=== PATIENT | female | born 1970 | race Caucasian/White ===

== ENCOUNTER 2023-05-30 08:19 | Outpatient (OUT) | payer MEDICARE, MEDICAID, SELFPAY ==
--- NOTE | 2023-05-30 08:25 | MM_ITS ---
Patient Name: NING CHRIS MR#: [id number] : 1970 Exam Date: 05/30/2023 Ordering Doctor: GILMAR KANG RADIOLOGY REPORT PROCEDURE: MM TOMOSYNTHESIS SCREENING BI COMPARISON: MAMMO SCREEN DIG VALENTINO, 03/09/2012. INDICATIONS: Screening Calculator Name NCI Breast Cancer Risk Assessment Tool 5 Year Breast Cancer Risk 1.30% Lifetime Breast Cancer Risk 9.30% Personal Breast Cancer No Personal Ovarian Cancer No Treatments None Family Cancers Mother with colon cancer at age 90. LOCATION: [facility] BREAST COMPOSITION: Scattered areas fibroglandular density. FINDINGS: DIAGNOSTIC CATEGORY 2--BENIGN FINDING. NO CHANGE FROM COMPARISON. Scattered benign-appearing calcifications are present. RIGHT BREAST: No significant suspicious finding. Stable nodule upper outer quadrant, anterior breast. LEFT BREAST: No significant suspicious finding. RECOMMENDATIONS: ROUTINE MAMMOGRAM AND CLINICAL EVALUATION IN 12 MONTHS. PLEASE NOTE: A NORMAL MAMMOGRAM DOES NOT EXCLUDE THE POSSIBILITY OF BREAST CANCER. A CLINICALLY SUSPICIOUS PALPABLE LUMP SHOULD BE BIOPSIED. Dictated by: Jian Hook MD on 05/30/2023 at 12:28 Approved by: Jian Hook MD on 05/30/2023 at 12:32
== END 2023-05-30 08:20 | disposition home or self-care (01) ==
LOC: MAMMO 08:19
DX: Z12.31 Encounter for screening mammogram for malignant neoplasm of breast (principal); Z80.0 Family history of malignant neoplasm of digestive organs
CPT/HCPCS: 77063; 77067

== ENCOUNTER 2024-01-09 10:35 | Outpatient (OUT) | payer MEDICARE, MEDICAID, SELFPAY ==
--- NOTE | 2024-01-09 10:45 | US_ITS ---
[address] [address] Patient Name: NING CHRIS MRN: [id number] date: 1970 Sex: F Assigned Patient Location: US Current Patient Location: Accession/Order Number: [id number] Exam Date: 01/09/2024 11:07 Report Date: 01/12/2024 07:14 At the request of: MODESTA AYDIN Procedure: US right upper quadrant EXAM: US right upper quadrant HISTORY: Right Upper Quadrant Abdominal Pain R10.11 COMPARISON: 08/16/2022 TECHNIQUE: Grayscale, color and Doppler FINDINGS: Limited exam due to patient body habitus The liver is normal in size, contour and echotexture. The liver measures 16.9 cm in length. Hepatopedal flow in the portal vein with velocity of 28 cm/s. The gallbladder is normal in size. The wall measures 1.6 mm. Negative sonographic Jeffries sign. The common bile duct measures 3.8 mm, normal. Visualized pancreas is normal. The right kidney is normal measuring 12.8 x 4.5 x 5.9 cm US/US right upper quadrant IMPRESSION: No acute abnormality Electronically authenticated by: ALEJANDRO MORIN Date: 01/12/2024 07:14
--- OUTSIDE RECORDS SUMMARY | 2024-01-09 10:45 | XMS_ITS | CCD ---
Author Organization [facility] CliniSywi Care Team Providers Care Blending Machine Feeder Name Role Phone Unavailable Primary Care Provider UnavailALEJANDRO Richards Referring Unavailable ALEJANDRO LIM Referring Unavailable ANGLIM, GILMAR Attending Unavailable GIOVANI, DR ANAND Monzon Consulting Unavailable ANGLIM, GILMAR Admitting Unavailable ANGLIM, GILMAR Primary Care Unavailable ANGLIM, GILMAR Consulting Unavailable DEBORAHEBABEL, DR ANAND Monzon Consulting Unavailable AHMED, DR HINTON Admitting Unavailable AHMED, DR HINTON Attending Unavailable ANGLIM, GILMAR Primary Care Unavailable AHMED, DR HINTON Consulting Unavailable ANGLIM, GILMAR Primary Care Unavailable ANGLIM, GILMAR Consulting Unavailable ANGLIM, GILMAR Attending Unavailable ANGLIM, GILMAR Admitting Unavailable ANGLIM, GILMAR Primary Care Unavailable NIK, DR KALLIE Monzon Admitting Unavailable NIK, DR KALLIE Monzon Consulting Unavailable NIK, DR KALLIE Monzon Attending Unavailable DAVE CARRERA Consulting Unavailable SOLOMON ALVAREZ Consulting Unavailable ANGLIM, GILMAR Primary Care Unavailable ANUP BUCKLEY Attending Unavailable INA, ANUP Admitting Unavailable ANUP BUCKLEY Consulting Unavailable RUDI MORENO Consulting Unavailable ANGLIM, GILMAR Primary Care Unavailable ANGLIM, GILMAR Attending Unavailable ANGLIM, GILMAR Admitting Unavailable ANGLIM, GILMAR Primary Care Unavailable ANGLIM, GILMAR Attending Unavailable ANGLIM, GILMAR Admitting Unavailable CONNIE GAMBLE Consulting Unavailable PAULLIM, GILMAR Consulting Unavailable PAULLIM, GILMAR Primary Care Unavailable Alejandro Hook Consulting Unavailable VIVEK, DR HINTON Admitting Unavailable GLORIAMED, DR HINTON Attending Unavailable DEBORAHEBABEL, DR ANAND Monzon Consulting Unavailable GLORIAMED, DR HINTON Consulting Unavailable PAULLIM, GILMAR Primary Care Unavailable Alejandro Hook Consulting Unavailable PAULLIM, GILMAR Attending Unavailable ANGLIM, GILMAR Admitting Unavailable GIOVANI, DR ANAND Monzon Consulting Unavailable PAULLIM, GILMAR Consulting Unavailable Anglim Gilmar BOBBY Primary Care Provider [phone] SONJA RIOJAS Attending Unavailab le KUZNSONJA WISE Admitting Unavailab le ANGLIM, GILMAR Primary Care Unavailable ALEJANDRO LIM Attending Unavailable ALEJANDRO LIM Attending Unavailable KUZNICKSONJA Gregorio Attending Unavailab le ANGLIM, GILMAR Primary Care Unavailable ALEJANDRO LIM Attending Unavailable ANGLIM, GILMAR Primary Care Unavailable ANGLIM, GILMAR Primary Care Unavailable KUZNSONJA WISE Referring Unavailab le ANGLIM, GILMAR Primary Care Unavailable KUZNICKISONJA Attending Unavailab le ANGLIM, GILMAR Primary Care Unavailable KUZNICKISONJA Referring Unavailab le ANGLIM, GILMAR Primary Care Unavailable KUZNICKSONJA Gregorio Attending Unavailab le ANGLIM, GILMAR Primary Care Unavailable KUZNICKSONJA Gregorio Referring Unavailab le ANGLIM, GILMAR Primary Care Unavailable ALEJANDRO LIM Attending Unavailable ANGLIM, GILMAR Primary Care Unavailable KUZNICKSONJA Gregorio Referring Unavailab le ANGLIM, GILMAR Primary Care Unavailable KUZNICKSONJA Gregorio Attending Unavailab le ANGLIM, GILMAR Primary Care Unavailable Flavio Galvan Jr Referring Unavailable ANGLIM, GILMAR Primary Care Unavailable Allergies Allergy Classification Reported Allergen(s) Allergy Type Date of Onset Reaction(s) Facility (20 sources) Codeine; Translations: [CODEINE] Drug Allergy 3 Other: See Comments [facility] (1 source) Codeine Drug Allergy [facility] Repository Medications Current Medications Medication Drug Class(es) Dates Sig (Normalized) Sig (Original) iv contrast (will be provided with radiology test) (1 source) Start: 12-16-2022 End: 12-17-2022 iv contrast (will be provided with radiology test) MRI Female Pelvis Inject, intravenously, once for 1 dose. No IV access, insert saline lock prior to the beginning of sedation, infusion, injection of imaging exam. Discontinue saline lock post exam. If Pt has a central line or IVAD, may access for administration according to line specific nursing protocol. Once exam is complete flush line and de-access according to line specific nursing protocol in the MR contrast administration guidelines link. 1 Each 0 12/16/2022 12/17/2022 Active Comment on above: MRI Female Pelvis In ject, intravenously, once for 1 dose. No IV access, insert saline lock prior to the beginning of sedation, infusion, injection of imaging exam. Discontinue saline lock post exam. If Pt has a central line or IVAD, may access for administration according to line specific nursing protocol. Once exam is complete flush line and de-access according to line specific nursing protocol in the MR contrast administration guidelines link. sodium picosulfate-magne sium oxide-citric acid (CLENPIQ) 10 mg-3.5 gram- 12 gram/175 mL oral solution (2 sources) Start: 02-04-2023 End: 02-06-2023 sodium picosulfate-magnesiu m oxide-citric acid (CLENPIQ) 10 mg-3.5 gram- 12 gram/175 mL oral solution Refer to instructions given by your provider 350 mL 0 02/04/2023 02/06/2023 Active Start: 02-04-2023 End: 02-06-2023 sodium picosulfate-magnesium oxide-citric acid (CLENPIQ) 10 mg-3.5 gram- 12 gram/175 mL oral solution Indications: Personal history of colonic polyps , Diarrhea, unspecified type Refer to instructions given by your provider 350 mL 0 02/04/2023 02/06/2023 Active Comment on above: Refer to instruction s given by your provider Completed/Discontinued Medications Medication Drug Class(es) Dates Sig (Normalized) Sig (Original) acetaminophen 500 mg oral tablet (10 sources) Start: 11-29-2022 take 2 tablets by mouth every six hours acetaminophen (TYLENOL EXTRA STRENGTH) 500 mg tablet Take 2 tablets by mouth every 6 hours. 30 tablet 0 11/29/2022 Active Comment on above: Take [address] tablets [address] [facility] every 6 hours. [id number] 200 actuat albuterol 0.09 mg/actuat metered dose inhaler (17 sources) beta2-Adrenergic Agonist albuterol HFA (PROVENTIL HFA, VENTOLIN HFA) 90 mcg/actuation inhaler albuterol sulfate HFA 90 mcg/actuation aerosol inhaler 0 Active Comment on above: albuterol sulfate HF A 90 mcg/actuation aerosol inhaler aspirin 81 mg delayed release oral tablet (17 sources) Platelet Aggregation Inhibitor, Nonsteroidal Anti-inflammatory Drug aspirin, enteric coated (ASPIRIN, ENTERIC COATED) 81 mg EC tablet q 24 HR. 0 Active Comment on above: q 24 HR. atorvastatin 20 mg oral tablet (17 sources) HMG-CoA Reductase Inhibitor Start: 06-03-2020 take 1 tablet by mouth once daily atorvastatin (LIPITOR) 20 mg tablet atorvastatin 20 mg tablet TAKE 1 TABLET BY MOUTH ONCE DAILY 0 06/03/2020 Active Comment on above: atorvastatin 20 mg t ablet TAKE 1 TABLET BY MOUTH ONCE DAILY dicyclomine hydrochloride 20 mg oral tablet (17 sources) Anticholinergic Start: 07-01-2022 dicyclomine (BENTYL) 20 mg tablet docusate sodium 50 mg / sennosides, senior care 8.6 mg oral tablet (9 sources) Start: 11-29-2022 take 1-2 tablets by mouth once daily as needed, then take 1 tablet by mouth once daily as needed senna-docusate (SENNA WITH DOCUSATE SODIUM) 8.6-50 mg per tablet Take 1-2 tablets by mouth once daily. May increase or decrease as needed to have one soft bowel movement daily 30 tablet 0 11/29/2022 Active Comment on above: Take 1-2 tablets by mouth once daily. May increase or decrease as needed to have one soft bowel movement daily famotidine 20 mg oral tablet (12 sources) Histamine-2 Receptor Antagonist Start: 10-17-2022 take 1 tablet by mouth twice daily as needed famotidine (PEPCID) 20 mg tablet TAKE 1 TABLET BY MOUTH TWICE DAILY NEEDED FOR 30 DAYS 0 10/17/2022 Active Comment on above: TAKE 1 TABLET BY DEZ TH TWICE DAILY NEEDED FOR 30 DAYS gabapentin 300 mg oral capsule (17 sources) Anti-epileptic Agent Start: 06-27-2022 take 2 capsules by mouth at bedtime gabapentin (NEURONTIN) 300 mg capsule TAKE 2 CAPSULES BY MOUTH AT BEDTIME FOR 30 DAYS 0 06/27/2022 Active Comment on above: TAKE 2 CAPSULES BY M OUTH AT BEDTIME FOR 30 DAYS ibuprofen 600 mg oral tablet (10 sources) Nonsteroidal Anti-inflammatory Drug Start: 11-29-2022 take 1 tablet by mouth every six hours ibuprofen (MOTRIN) 600 mg tablet Take 1 tablet by mouth every 6 hours. 30 tablet 0 11/29/2022 Active Comment on above: Take 1 tablet by dez th every 6 hours. loratadine 10 mg oral capsule (17 sources) loratadine 10 mg cap Take 10 mg by mouth. 0 Active Comment on above: Take 10 mg by mouth. losartan potassium 25 mg oral tablet (17 sources) Angiotensin 2 Receptor Helen losartan (COZAAR) 25 mg tablet q 24 HR. 0 Active Comment on above: q 24 HR. montelukast 10 mg oral tablet (17 sources) Leukotriene Receptor Antagonist Start: 06-09-2022 take 1 tablet by mouth once daily montelukast (SINGULAIR) 10 mg tablet Take 10 mg by mouth once daily. 0 06/09/2022 Active Comment on above: Take 10 mg by mouth once daily. omeprazole 40 mg delayed release oral capsule (7 sources) Proton Pump Inhibitor Start: 07-01-2022 End: 11-26-2022 omeprazole (PRILOSEC) 40 mg capsule oxyCODONE hydrochloride 5 mg oral tablet (9 sources) Opioid Agonist Start: 11-29-2022 take 1 tablet by mouth every six hours as needed for pain oxyCODONE IR (ROXICODONE) 5 mg immediate release tablet Indications: Postoperative state Take 1 tablet by mouth every 6 hours as needed for pain. 5 tablet 0 11/29/2022 Active Comment on above: Take 1 tablet by dez th every 6 hours as needed for pain. polyethylene glycol 3350 [id number] mg / potassium chloride 2970 mg / sodium bicarbonate 6740 mg / sodium chloride 5860 mg / sodium sulfate 48035 mg powder for oral solution (1 source) Osmotic Laxative Start: 02-04-2023 End: 02-04-2023 peg 3350-Electrolytes (GOLYTELY) 236-22.74-6.74 -5.86 gram suspension Take 4,000 mL by mouth one time only for 1 dose. Refer to printed prep instructions from your provider. 4000 mL 0 02/04/2023 02/04/2023 Comment on above: Take 4,000 mL by dez th one time only for 1 dose. Refer to printed prep instructions from your provider. rizatriptan 10 mg oral tablet (17 sources) Serotonin-1b and Serotonin-1d Receptor Agonist Start: 06-04-2022 rizatriptan (MAXALT) 10 mg tablet TAKE 1 TABLET BY MOUTH ONCE NEEDED FOR MIGRAINE. CAN REPEAT AFTER 2 HOURS IF NEEDED. STOP IMITREX 0 06/04/2022 Active Comment on above: TAKE 1 TABLET BY DEZ TH ONCE NEEDED FOR MIGRAINE. CAN REPEAT AFTER 2 HOURS IF NEEDED. STOP IMITREX Surgical Lubricant Jelly gel (5 sources) Start: 06-11-2023 Surgical Lubricant Jelly gel For MRI Female Pelvis, MRI department to provide. Administer intra-vaginal Surgilube immediately prior the MRI procedure (total amount to patient toleranace). 5 g 0 06/11/2023 Active Start: 12-16-2022 Surgical Lubri cant Jelly gel For MRI Female Pelvis, MRI department to provide. Administer intra-vaginal Surgilube immediately prior the MRI procedure (total amount to patient toleranace). 5 g 0 12/16/2022 Active Comment on above: For MRI Female Pelvi s, MRI department to provide. Administer intra-vaginal Surgilube immediately prior the MRI procedure (total amount to patient toleranace). tiZANidine 2 mg oral tablet (17 sources) Central alpha-2 Adrenergic Agonist Start: 2 take 1 tablet by mouth once daily as needed tiZANidine (ZANAFLEX) 2 mg tablet Take 2 mg by mouth once daily as needed. 0 03/13/2022 Active Comment on above: Take 2 mg by mouth o nce daily as needed. topiramate 25 mg oral tablet (1 source) Start: 3 take 1 tablet by mouth every twelve hours topiramate (TOPAMAX) 25 mg tablet Take 1 tablet by mouth every 12 hours. 0 06/19/2023 Active Comment on above: Take 1 tablet by dez th every 12 hours. traMADol hydrochloride 50 mg oral tablet (7 sources) Opioid Agonist Start: 3 traMADol (ULTRAM) 50 mg tablet twice daily. 0 06/27/2022 Active Comment on above: TAKE 1 TABLET BY DEZ TH TWICE DAILY NEEDED FOR 30 DAYS twice daily. Problems Active Problems Problem Classification Problem Date Documented Da te Episodic/Chronic Asthma (12 sources) Mild intermittent asthma; Translations: [Mild intermittent asthma, uncomplicated] Onset: 3 Chronic Disorders of lipid metabolism (12 sources) Hyperlipidemia; Translations: [Hyperlipidemia, unspecified] Onset: 3 Chronic Esophageal disorders (12 sources) Gastroesophageal reflux disease; Translations: [Gastro-esophageal reflux disease without esophagitis] Onset: 3 Chronic Essential hypertension (13 sources) Essential (primary) hypertension; Translations: [Essential hypertension] Onset: 2 Chronic Headache; including migraine (1 source) Migraine; Translations: [Migraine, unspecified, not intractable, without status migrainosus] Onset: 4 07-09-2023 Chronic Mood disorders (11 sources) Depressive disorder; Translations: [Depression] Onset: 3 11-26-2022 Chronic Other and unspecified benign neoplasm (1 source) History of polyp of colon; Translations: [Personal history of colonic polyps] 02-04-2023 Episodic Other gastrointestinal disorders (3 sources) Diarrhea; Translations: [Diarrhea, unspecified] Episodic Other gastrointestinal disorders (1 source) Constipation; Translations: [Other constipation] Episodic Other gastrointestinal disorders (1 source) Diarrhea, unspecified; Translations: [Diarrhea, unspecified type] Onset: 3 Episodic Other gastrointestinal disorders (1 source) Other constipation; Translations: [Other constipation] Onset: 3 Episodic Other gastrointestinal disorders (2 sources) Altered bowel function; Translations: [Change in bowel habit] Episodic Other gastrointestinal disorders (1 source) Swelling; Translations: [Other intra-abdominal and pelvic swelling, mass and lump] 12-12-2022 Episodic Other hereditary and degenerative nervous system conditions (11 sources) Restless legs; Translations: [Restless legs syndrome] Onset: 3 11-26-2022 Chronic Other nervous system disorders (1 source) Other chronic pain; Translations: [OTHER CHRONIC PAIN] Onset: 2 Chronic Other nutritional; endocrine; and metabolic disorders (1 source) Obesity, unspecified; Translations: [OBESITY UNSPECIFIED] Onset: 2 Chronic Other nutritional; endocrine; and metabolic disorders (1 source) Body mass index (BMI) 45.0-49.9, adult; Translations: [BODY MASS INDEX BMI 45.0-49.9 ADULT] Onset: 2 Chronic Other nutritional; endocrine; and metabolic disorders (14 sources) Body mass index 40+ - severely obese; Translations: [Morbid (severe) obesity due to excess calories] Onset: 3 Chronic Other screening for suspected conditions (not mental disorders or infectious disease) (2 sources) Endometrium thickened; Translations: [Abnormal findings on diagnostic imaging of other specified body structures] Onset: 3 Chronic Residual codes; unclassified (1 source) Obstructive sleep apnea syndrome; Translations: [Obstructive sleep apnea (adult) (pediatric)] Chronic Residual codes; unclassified (11 sources) Sleep apnea; Translations: [Sleep apnea, unspecified] Onset: 3 11-26-2022 Chronic Residual codes; unclassified (1 source) Postoperative state; Translations: [Other specified postprocedural states] Episodic Residual codes; unclassified (1 source) Other specified postprocedural states; Translations: [Postoperative state] Onset: 3 Episodic Spondylosis; intervertebral disc disorders; other back problems (1 source) Other intervertebral disc degeneration, lumbar region; Translations: [OTH IV DISC DEGEN LUMBAR REGION] Onset: 3 Chronic Unclassified (1 source) COUGH, UNSPECIFIED; Translations: [COUGH, UNSPECIFIED] Onset: 2 Past or Other Problems Problem Classification Problem Date Documented Da te Episodic/Chronic Abdominal pain (5 sources) Unspecified abdominal pain; Translations: [UNSPECIFIED ABDOMINAL PAIN] Onset: 12-11-2021 Episodic Biliary tract disease (1 source) Disease of gallbladder, unspecified; Translations: [DISEASE OF GALLBLADDER UNSPECIFIED] Onset: 03-19-2022 Episodic Intestinal infection (1 source) Bacterial foodborne intoxication, unspecified; Translations: [BACTERIAL FOODBORNE INTOXICATN UNS] Onset: 12-11-2021 Episodic Nausea and vomiting (1 source) Nausea with vomiting, unspecified; Translations: [NAUSEA WITH VOMITING UNSPECIFIED] Onset: 12-11-2021 Episodic Nonspecific chest pain (1 source) Other chest pain; Translations: [OTHER CHEST PAIN] Onset: 12-11-2021 Episodic Other aftercare (1 source) Other extermination inspector (current) drug therapy; Translations: [OTH LONG-TERM CURRENT DRUG THERAPY] Onset: 03-19-2022 Episodic Other aftercare (1 source) extermination inspector (current) use of aspirin; Translations: [TAR HEAT EXCHANGER CLEANER CURRENT USE OF ASPIRIN] Onset: 03-19-2022 Episodic Other gastrointestinal disorders (1 source) Other intra-abdominal and pelvic swelling, mass and lump; Translations: [Other intra-abdominal and pelvic swelling, mass and lump] Onset: 12-12-2022 Episodic Other lower respiratory disease (1 source) Shortness of breath; Translations: [SHORTNESS OF BREATH] Onset: 12-11-2021 Episodic Other screening for suspected conditions (not mental disorders or infectious disease) (7 sources) Abnormal findings on diagnostic imaging of other abdominal regions, including retroperitoneum; Translations: [Cancer cervix screening status] Onset: 08-21-2022 Episodic Ovarian cyst (7 sources) Unspecified ovarian cyst, right side; Translations: [Cyst of ovary] Onset: 09-05-2022 Episodic Spondylosis; intervertebral disc disorders; other back problems (12 sources) Chronic back pain ; Translations: [Dorsalgia, unspecified] Onset: 11-26-2022 Episodic Results Test Name Value Interpretation Reference Range Facility HISTORY PHYSICALon HISTORY PHYSICAL HNO ID: [id number] Author: GABBY RUIZ APRN.QUANTITATIVE STRATEGY ANALYST Service: ? Author Type: Nurse Practitioner Type: H&P Filed: 07/09/2023 10:23 Note Text: PREANESTHESIA CONSULT CLINIC TELEHEALTH VISIT Patient has been identified by name and date of : Yes This is a virtual visit using cloud.[email or web address] Video Visit. It require patient-provider interaction for the medical decision making as documented below. Reason for contact: PACC visit Accompanied by: Self This is a virtual visit using Virtual Visit (Audio/Visual) I have discussed the nature of this visit with the patient which will occur via Distance Health (Phone, Virtual Visit) and she agrees to proceed with this interaction . It required patient-provider interaction for the medical decision making as documented below. I have communicated my name and active licensure. The patient's identity and physical location were verified at the time of this visit. Either the patient or their legal national account representative has been informed of the risks and benefits of and alternatives to treatment through a remote evaluation and consents to proceed with the evaluation remotely. Scheduled Surgery: EGD AND Colonoscopy on 07/28/23 at [facility]. Subjective CHIEF COMPLAINT: Patient presents with: Pre-Op Visit HPI: This is a 53 year old female who presents for a virtual PACC visit; she is scheduled for an EGD and Colonoscopy. Patient has c/o GERD, right sided abdominal pain, and intermittent constipation and diarrhea. She states she had a colonoscopy several years ago that discovered colon polyps. Patient denies recent fevers, chills, unexplained weight loss, nausea, vomiting, bloating, or blood in the stool. The above procedure was recommended; patient has elected to proceed. ACTIVE PROBLEM LIST Sleep Apnea Htn (Hypertension) Gerd (Gastroesophageal Reflux Disease) Depression Asthma Rls (Restless Legs Syndrome) Obesity, Morbid, Bmi 40.0-49.9 (Hcc) Hld (Hyperlipidemia) Chronic Back Pain Migraines PAST MEDICAL HISTORY Diagnosis Date Anxiety Asthma Chronic back pain and neck pain Depression GERD (gastroesophageal reflux disease) HLD (hyperlipidemia) HTN (hypertension) Migraines Obesity, morbid, BMI 40.0-49.9 (HCC) RLS (restless legs syndrome) Sleep apnea PAST SURGICAL HISTORY Procedure Laterality Date ARTHROSCOPY KNEE DIAGNOSTIC W/WO SYNOVIAL BX SPX Left FAMILY HISTORY Problem Relation Age of Onset Heart disease Mother Auto-Immune Hepatitis Mother Colon Cancer Mother Blood Disease Mother Osteoporosis Mother Arthritis Mother Depression Mother Depression Father Heart Attack Father Hypertension Father Hyperlipidemia Father Hypertension Sister Obstructive Sleep Apnea Sister Hypertension Brother Heart disease Maternal Grandfather Anesthesia Problems No Family History Social History Tobacco Use Smoking status: Never Smokeless tobacco: Never Vaping Use Vaping Use: Never used Substance Use Topics Alcohol use: Not Currently Drug use: Never ALLERGIES Allergen Reactions Codeine Other: See Comments MEDICATIONS: Current Outpatient Medications Medication Sig topiramate (TOPAMAX) 25 mg tablet Take 1 tablet by mouth every 12 hours. ibuprofen (MOTRIN) 600 mg tablet Take 1 tablet by mouth every 6 hours. famotidine (PEPCID) 20 mg tablet TAKE 1 TABLET BY MOUTH TWICE DAILY NEEDED FOR 30 DAYS gabapentin (NEURONTIN) 300 mg capsule TAKE 2 CAPSULES BY MOUTH AT BEDTIME FOR 30 DAYS losartan (COZAAR) 25 mg tablet q 24 HR. montelukast (SINGULAIR) 10 mg tablet Take 10 mg by mouth once daily. rizatriptan (MAXALT) 10 mg tablet TAKE 1 TABLET BY MOUTH ONCE NEEDED FOR MIGRAINE. CAN REPEAT AFTER 2 HOURS IF NEEDED. STOP IMITREX tiZANidine (ZANAFLEX) 2 mg tablet Take 2 mg by mouth once daily as needed. aspirin, enteric coated (ASPIRIN, ENTERIC COATED) 81 mg EC tablet q 24 HR. albuterol HFA (PROVENTIL HFA, VENTOLIN HFA) 90 mcg/actuation inhaler albuterol sulfate HFA 90 mcg/actuation aerosol inhaler atorvastatin (LIPITOR) 20 mg tablet atorvastatin 20 mg tablet TAKE 1 TABLET BY MOUTH ONCE DAILY Surgical Lubricant Jelly gel For MRI Female Pelvis, MRI department to provide. Administer intra-vaginal Surgilube immediately prior the MRI procedure (total amount to patient toleranace). acetaminophen (TYLENOL EXTRA STRENGTH) 500 mg tablet Take 2 tablets by mouth every 6 hours. loratadine 10 mg cap Take 10 mg by mouth. (Patient not taking: Reported on 06/11/2023) dicyclomine (BENTYL) 20 mg tablet No current facility-administered medications for this visit. COVID VACCINATION STATUS: Fully vaccinated REVIEW OF SYSTEMS: Pain Assessment: General: No weight loss, malaise or fevers. Neuro: + Migraines, RLS. Negative for seizures, strokes. Respiratory: + Asthma, PERCY. Negative for Current cough, Dyspnea, Pneumonia within 6 weeks (date), URI < 2 weeks Cardiovascular: + HTN, HLD. Negative for DVT/PE, CT, (more content not included)... Normal [facility] CNOVSPon 06-11-2023 CNOVSP Visit (SP) Office ([facility]) -- YADIRA JEFFREY ([id number]) 1970 F Date Time Provider Department 06/11/23 1:00 PM SONJA RIOJAS GYNPERCY During your visit today, we recorded the following information about you: Temperature Pulse Respiration Blood pressure 97.9 degrees 83/minute 18/minute 132/75 Weight Height 140 kg 1.702 m Sonja Riojas MD 06/11/2023 1:34 PM Signed DATE OF SERVICE: 06/11/2023 REASON FOR VISIT: Right ovarian cyst, MRI REVIEW DIAGNOSIS: Right ovarian cyst HISTORY OF PRESENT ILLNESS: Yadira Jeffrey is a 52 year old female with pmh of HTN, anxiety/depression, asthma, cervical stenosis os spine, GERD, PERCY who presented for abdominal discomfort. CT A/P initially completed in 02/2022 demonstrated a right ovarian cyst and continued monitoring has shown slight increase in size. Pelvic US follow up completed in 04/2022 demonstrated a thickened endometrium and follow up MRI pelvis in 08/2022 demonstrated a 5.4 complex right ovarian lesion, suspected to represent a hemmorhagic cyst. Patient has declined a pelvic exam due to traumatic history. Presents to hospital social worker onc for further evaluation. Thickened endometrium on MRI without bleeding for 1.5y Not up to date on pap screening 11/29/2022 Surgery- EUA, colposcopy with cervical biopsies, [facility] FINAL DIAGNOSIS A. Endocervix, curettage: ---Benign endocervical glandular epithelium. B. Endometrium, curettage: ---Superficial strips of inactive endometrium. C. Cervix, at 12:00, biopsy: ---Benign transformation zone mucosa with marked acute and chronic inflammation. D. Cervix, at 9:00, biopsy: ---Benign transformation zone mucosa with marked acute and chronic inflammation. E. Cervix, at 3:00, biopsy: ---Benign transformation zone mucosa with marked acute and chronic inflammation. Ca 125 : 7 DATE OF LAST VISIT: 12/16/2022 OBSTETRIC/ GYNECOLOGY HISTORY: Last Pap: 11/29/2022- negative RECENT PATHOLOGY: 11/29/2022 FINAL DIAGNOSIS A. Endocervix, curettage: ---Benign endocervical glandular epithelium. B. Endometrium, curettage: ---Superficial strips of inactive endometrium. C. Cervix, at 12:00, biopsy: ---Benign transformation zone mucosa with marked acute and chronic inflammation. D. Cervix, at 9:00, biopsy: ---Benign transformation zone mucosa with marked acute and chronic inflammation. E. Cervix, at 3:00, biopsy: ---Benign transformation zone mucosa with marked acute and chronic inflammation. RECENT IMAGING: Date: 09/05/2022 MRI Pelvis Date: 08/16/2022 CT A/P Date: 05/13/22 Pelvic US Date: 03/15/2022 CT A/P 12/12/2022-MRI pelvis IMPRESSION: Stable 5.4 cm nonenhancing right ovarian cystic lesion with heterogeneous internal signal intensity, possibly related to hemorrhage (ORADS 3). No endometrial thickening. 12/12/2022 MRI Pelvis IMPRESSION: Stable 5.4 cm nonenhancing right ovarian cystic lesion with heterogeneous internal signal intensity, possibly related to hemorrhage (ORADS 3). No endometrial thickening. 01/27/2023 MRI Abdomen IMPRESSION: 1. No acute process. 2. Tiny 0.3 cm cystic lesion in the body of the pancreas, likely a tiny sidebranch IPMN. Recommend 1 year follow-up. 3. Common bile duct is minimally distended measuring up to 0.9 cm but tapers smoothly distally. No obvious filling defects or focal lesions. 06/03/2023 MRI Pelvis IMPRESSION: Stable 5.3 cm nonenhancing right ovarian lesion with some hemorrhagic component (O-RADS 3). HEALTH MAINTENANCE: Last mammogram: 16 years ago normal Last colonoscopy: scheduled fall 2022 ECOG performance status ECOG PERFORMANCE STATUS: 0- Fully active, able to carry on all pre-disease performance w/o restriction. SUBJECTIVE/INTERVAL HISTORY: Yadira Jeffrey reports that she feels well. Stable abdominal pain and diarrhea. No nausea. Some decreased appetite. No abnormal bleeding or any new symptoms since last visit. Has been following with GI for ongoing symptoms. Her ECOG performance status is zero (fully active, able to carry on all pre-disease performance without restriction). OBJECTIVE: VITALS: BP 132/75 Pulse 83 Temp (Src) 97.9 (Temporal) Resp 18 Ht 5' 7.008 (1.70m) Wt 308 lb 10.3 oz (140.0kg) SpO2 97% BMI 48.33 kg/(m2). GENERAL: alert, oriented, pleasant, and cooperative. HEENT: Normocephalic, atraumatic, and no lesions. ASSESSMENT: 52 year old y/o female anxiety, depression, HTN presenting for follow up of complex right ovarian cyst and thickened endometrium. Also following with GI for gallbladder abnormalities. Continues to care for her mother with cancer treatment and has been under a lot of stress. Complex right ovarian mass : unable to tolerate transvaginal probe or pelvic exams therefore the abdominal sono was limited. MRI 08/2022 shows 5.4 cm cyst, US shows 5.4cm cyst. MRI suggesting hemorrhagic cyst. Nor (more content not included)... Normal [facility] MRI FEMALE PELVIS WO/W IVCON on 06-03-2023 MRI FEMALE PELVIS WO/W IVCON * * *Final Report* * * DATE OF EXAM: Jun 03 2023 2:19PM [facility] 0713 - MRI FEMALE PELVIS WO/W IVCON / PROCEDURE REASON: Cyst of ovary, unspecified laterality * * * * Physician Interpretation * * * * MRI OF THE FEMALE PELVIS WITHOUT AND WITH CONTRAST CLINICAL HISTORY: Follow-up hemorrhagic right ovarian cyst. TECHNIQUE: Magnet: 3T Scanner Coil: Torso phased array Sequences / planes: Multiplanar, multisequence imaging of the female pelvis was performed with and without contrast enhancement. M: [id number] Contrast: Contrast Media 1: IV administration of 20 ml of Dotarem COMPARISON: MRI pelvis 12/12/2022 RESULT: Uterus: Size: 6.8 x 6.0 x 2.9 cm Orientation: Anteverted Endometrium: Homogeneous signal intensity with no mass measuring 2 mm. Junctional zone: Maximum thickness: 7 mm, Homogeneous T2 hypointense signal Cervix: Normal Leiomyomas: None. Adenomyomas: None Ovaries: - Right ovary: 5.3 x 5.0 x 4.7 cm cystic lesion (4:29) with heterogeneous T2 signal, a few areas of peripheral T1 hyperintensity and no internal enhancement but with mild smooth peripheral enhancement. Previously this lesion measured 5.4 x 4.8 x 4.8 cm. - Left ovary: 2.5 x 1.2 cm with normal parenchyma (7:24). Endometriosis: None Pelvis free fluid: none Lymph nodes: No lymph nodes enlarged by size criteria Bones:Normal marrow signal. Hydronephrosis: no IMPRESSION: Stable 5.3 cm nonenhancing right ovarian lesion with some hemorrhagic component (O-RADS 3). Tile Ditcher: LESLEY Transcribe Date/Time: Jun 03 2023 2:22P Dictated by : ERIN NGUYEN, DO This examination was interpreted and the report reviewed and electronically signed by: EUGENE CHAPIN MD on Jun 03 2023 4:27PM EST [id number] Normal [facility] Juanito 01-28-2023 CNPN Telephone (GYN) -- YADIRA JEFFREY ([id number]) 1970 F Date Time Provider Department 01/28/23 HOLLEY COPPOLA GYNML During your visit today, we recorded the following information about you: Holley Coppola APRN.CNP 01/28/2023 3:51 PM Signed Called Wendy regarding her MRI Abdomen results. Unable to leave a voicemail. Will send [employer] message and try again later. Holley Coppola APRN.CNP January 28, 2023 3:51 PM Holley Coppola APRN.CNP 02/03/2023 11:31 AM Signed LVM for patient regarding MRI results. Will await returned call. Holley Coppola APRN.CNP February 03, 2023 11:31 AM Allergies As of Date: 01/28/2023 Noted Allergy Reaction CODEINE 07/08/2022 14 - Other: See Comments Date Reviewed: 01/27/2023 Reviewed by: Monalisa Srivastava RN - Fully Assessed Reason for Visit: Results [95] Prescriptions as of 02/03/2023 - Surgical Lubricant Jelly gel For MRI Female Pelvis, MRI department to provide. Administer intra-vaginal Surgilube immediately prior the MRI procedure (total amount to patient toleranace). - oxyCODONE IR (ROXICODONE) 5 mg immediate release tablet Take 1 tablet by mouth every 6 hours as needed for pain. - acetaminophen (TYLENOL EXTRA STRENGTH) 500 mg tablet Take 2 tablets by mouth every 6 hours. - ibuprofen (MOTRIN) 600 mg tablet Take 1 tablet by mouth every 6 hours. - senna-docusate (SENNA WITH DOCUSATE SODIUM) 8.6-50 mg per tablet Take 1-2 tablets by mouth once daily. May increase or decrease as needed to have one soft bowel movement daily - famotidine (PEPCID) 20 mg tablet TAKE 1 TABLET BY MOUTH TWICE DAILY NEEDED FOR 30 DAYS - gabapentin (NEURONTIN) 300 mg capsule TAKE 2 CAPSULES BY MOUTH AT BEDTIME FOR 30 DAYS - loratadine 10 mg cap Take 10 mg by mouth. - losartan (COZAAR) 25 mg tablet q 24 HR. - montelukast (SINGULAIR) 10 mg tablet Take 10 mg by mouth once daily. - rizatriptan (MAXALT) 10 mg tablet TAKE 1 TABLET BY MOUTH ONCE NEEDED FOR MIGRAINE. CAN REPEAT AFTER 2 HOURS IF NEEDED. STOP IMITREX - tiZANidine (ZANAFLEX) 2 mg tablet Take 2 mg by mouth once daily as needed. - aspirin, enteric coated (ASPIRIN, ENTERIC COATED) 81 mg EC tablet q 24 HR. - albuterol HFA (PROVENTIL HFA, VENTOLIN HFA) 90 mcg/actuation inhaler albuterol sulfate HFA 90 mcg/actuation aerosol inhaler - dicyclomine (BENTYL) 20 mg tablet - atorvastatin (LIPITOR) 20 mg tablet atorvastatin 20 mg tablet TAKE 1 TABLET BY MOUTH ONCE DAILY Problem List As Of Date 01/28/2023 Noted Resolved Sleep apnea [G47.30] 11/26/2022 HTN (hypertension) [I10] 11/26/2022 GERD (gastroesophageal reflux disease) [K21.9] 11/26/2022 Depression [F32.A] 11/26/2022 Asthma [J45.909] 11/26/2022 RLS (restless legs syndrome) [G25.81] 11/26/2022 Obesity, morbid, BMI 40.0-49.9 (HCC) [E66.01] 11/26/2022 HLD (hyperlipidemia) [E78.5] 11/26/2022 Chronic back pain [M54.9, G89.29] 11/26/2022 Encounter Status:Closed by HOLLEY COPPOLA on 01/28/23 [facility] MRI ABDOMEN WO/W IVCONon Radiology Result ACTIONABLE Abnormal [facility]z k[facility] MRI ABDOMEN WO/W IVCON * * *Final Report* * * DATE OF EXAM: Jan 27 2023 10:58AM [facility] 0689 - MRI ABDOMEN WO/W IVCON / PROCEDURE REASON: Cyst of ovary, unspecified laterality * * * * Physician Interpretation * * * * MRI OF THE ABDOMEN WITHOUT AND WITH CONTRAST: CLINICAL HISTORY: Ovarian cyst, abdominal pain COMPARISON: None. TECHNIQUE: The study was performed on a Siemens 1.5 T Espree scanner using the torso phased array coil. HASTE images were obtained in the axial, sagittal and coronal planes. High resolution 3-D T2 weighted images were then obtained. Next, axial STIR, diffusion weighted and T1 weighted in- and [id number] images were obtained. Then, using a 3-D GRE T1 weighted sequence, dynamic images were obtained before, during and after the administration of intravenous contrast. 3-D images were post-processed on a dedicated off-line workstation and were reviewed by the interpreting physician. Contrast: IV: 20 ml of Dotarem Oral Contrast: None RESULT: Liver: The liver is normal in contour. Scattered arterial enhancing foci measuring up to 0.9 cm without underlying T2 abnormality. Fades to background on venous phase images and likely focal perfusion abnormalities. There are no focal hepatic lesions. Mild hepatic steatosis There is no thrombus in the portal venous system (splenic vein, main portal vein, left and right anterior and right posterior portal vein branches). Spleen - The spleen measures 12.0 cm in length, normal. There are no focal splenic masses. Pancreaticobiliary: There is no intrahepatic biliary dilation. Common bile duct is mildly distended measuring up to 0.9 cm. No filling defects are identified within the common bile duct. Smooth tapering distally. The gallbladder is normal in appearance. The pancreas has normal precontrast signal, enhances normally. Adjacent tiny cystic lesions in the pancreatic body measuring 0.3 cm (image 26, 9). The visualized portions of the pancreatic duct are normal. The adrenals are normal. Kidneys: The visualized portions of the kidneys enhance symmetrically. There is no hydroureteronephrosis. There is no focal enhancing renal lesion. Tiny cyst in the lower pole of the left kidney Other: There is no ascites. There are no abnormal fluid collections. There is no lymphadenopathy. IMPRESSION: 1. No acute process. 2. Tiny 0.3 cm cystic lesion in the body of the pancreas, likely a tiny sidebranch IPMN. Recommend 1 year follow-up. 3. Common bile duct is minimally distended measuring up to 0.9 cm but tapers smoothly distally. No obvious filling defects or focal lesions. ACTIONABLE RESULT: FOLLOW-UP Acuity: Actionable Findings: Pancreas/Biliary Routing Code: PB_1 Recommendation: MRI PANCREAS/BILIARY WO/W IV CONTRAST Time Frame: In one year. COMMUNICATION: Results will be communicated with the ordering provider via [employer] staff message or phone message by [employer] within 2 business days of report finalization. Algorithms for management of incidental imaging findings can be found on the [facility] Intranet Sharepoint site at: [email or web address] [email or web address] Tile Ditcher: LESLEY Transcribe Date/Time: Jan 27 2023 1:10P Dictated by : HERMILA TAY MD This examination was interpreted and the report reviewed and electronically signed by: HERMILA TAY MD on Jan 27 2023 1:28PM EST [id number] ACTIONABLE Invalid Interpretation Code [facility] MRI FEMALE PELVIS WO/W IVCON on 12-12-2022 MRI FEMALE PELVIS WO/W IVCON * * *Final Report* * * DATE OF EXAM: Dec 12 2022 1:29PM [facility] 0713 - MRI FEMALE PELVIS WO/W IVCON / PROCEDURE REASON: Other intra-abdominal and pelvic swelling, mass and lump * * * * Physician Interpretation * * * * MRI OF THE FEMALE PELVIS WITHOUT AND WITH CONTRAST CLINICAL HISTORY: Enlarging hemorrhagic right ovarian cyst and thickened endometrium, follow-up. TECHNIQUE: Magnet: Siemens 1.5T Espree Coil: Torso phased array Sequences / planes: T2: axial, sagittal, coronal and axial oblique High resolution T2: sagittal HASTE: coronal large field of view T1 in and out of phase T1 3-D GRE with and without contrast: axial, sagittal Diffusion weighted imaging with ADC mapping: axial Contrast: IV administration of 20 ml of Dotarem COMPARISON: 09/05/2022 MRI pelvis 2:16 RESULT: Uterus: Size: 5.9 x 2.7 x 4.9 cm Orientation: Anteverted Configuration: conventional Endometrium: Maximum width measures 2 mm. No endometrial lesion. Junctional zone: Maximum thickness: 6 mm. Homogeneous T2 hypointense signal. Cervix: Normal Leiomyomas: None Adenomyomas: None Ovaries: - Right ovary: Grossly stable 4.8 x 4.8 x 5.4 cm cystic lesion with a thin enhancing rim (5:34, 3:31). Lesion shows peripheral T1 hyperintensity and heterogeneous mixed high and low signal intensity on T2. Simple cyst was visualized on CT from 08/16/2022 that measured 6 cm. - Left ovary: 2.2 x 1.2 cm with normal parenchyma (5:31). Endometriosis: None Pelvis free fluid: Trace, likely physiologic free fluid. Lymph nodes: No lymph nodes enlarged by size criteria Bones:Normal marrow signal. IMPRESSION: Stable 5.4 cm nonenhancing right ovarian cystic lesion with heterogeneous internal signal intensity, possibly related to hemorrhage (ORADS 3). No endometrial thickening. Tile Ditcher: PSCB Transcribe Date/Time: Dec 12 2022 1:32P Dictated by : KARO NIXON MD This examination was interpreted and the report reviewed and electronically signed by: ALVARADO ALONSO MD on Dec 13 2022 12:32PM EST [id number] Normal [facility] CNOVSPon 12-11-2022 CNOVSP Visit (SP) Office (Terence AGUIRRE) -- YADIRA JEFFREY ([id number]) 1970 F Date Time Provider Department 12/11/22 8:30 AM SONJA RIOJAS During your visit today, we recorded the following information about you: Temperature Pulse Respiration Blood pressure 97.7 degrees 61/minute 16/minute 105/51 Weight Height 135.2 kg 1.702 m Kathy Hicks MA 12/11/2022 8:30 AM Signed Patient states that both burning and bleeding have stopped and she denies pain. TAVO Culver MD 12/11/2022 8:54 AM Signed DATE OF SERVICE: 12/11/2022 REASON FOR VISIT: Right ovarian cyst, post op follow up DIAGNOSIS: Right ovarian cyst HISTORY OF PRESENT ILLNESS: Yadira Jeffrey is a 52 year old female with pmh of HTN, anxiety/depression, asthma, cervical stenosis os spine, GERD, PERCY who presented for abdominal discomfort. CT A/P initially completed in 02/2022 demonstrated a right ovarian cyst and continued monitoring has shown slight increase in size. Pelvic US follow up completed in 04/2022 demonstrated a thickened endometrium and follow up MRI pelvis in 08/2022 demonstrated a 5.4 complex right ovarian lesion, suspected to represent a hemmorhagic cyst. Patient has declined a pelvic exam due to traumatic history. Presents to hospital social worker onc for further evaluation. Thickened endometrium on MRI without bleeding for 1.5y Not up to date on pap screening 11/29/2022 Surgery- EUA, colposcopy with cervical biopsies, [facility] Ca 125 : 7 DATE OF LAST VISIT: 11/06/22 OBSTETRIC/ GYNECOLOGY HISTORY: Last Pap: 11/29/2022- in process PAST MEDICAL HISTORY Diagnosis Date Anxiety Asthma Chronic back pain and neck pain Depression GERD (gastroesophageal reflux disease) HLD (hyperlipidemia) HTN (hypertension) Migraines Obesity, morbid, BMI 40.0-49.9 (HCC) RLS (restless legs syndrome) Sleep apnea PAST SURGICAL HISTORY Procedure Laterality Date ARTHROSCOPY KNEE DIAGNOSTIC W/WO SYNOVIAL BX SPX Left Family History Problem Relation Age of Onset Heart disease Mother Auto-Immune Hepatitis Mother Colon Cancer Mother Blood Disease Mother Osteoporosis Mother Arthritis Mother Depression Mother Depression Father Heart Attack Father Hypertension Father Hyperlipidemia Father Hypertension Sister Obstructive Sleep Apnea Sister Hypertension Brother Heart disease Maternal Grandfather Anesthesia Problems No Family History RECENT PATHOLOGY: 11/29/2022 FINAL DIAGNOSIS A. Endocervix, curettage: ---Benign endocervical glandular epithelium. B. Endometrium, curettage: ---Superficial strips of inactive endometrium. C. Cervix, at 12:00, biopsy: ---Benign transformation zone mucosa with marked acute and chronic inflammation. D. Cervix, at 9:00, biopsy: ---Benign transformation zone mucosa with marked acute and chronic inflammation. E. Cervix, at 3:00, biopsy: ---Benign transformation zone mucosa with marked acute and chronic inflammation. RECENT IMAGING: Date: 09/05/2022 MRI Pelvis Date: 08/16/2022 CT A/P Date: 05/13/22 Pelvic US Date: 03/15/2022 CT A/P HEALTH MAINTENANCE: Last mammogram: 16 years ago normal Last colonoscopy: scheduled fall 2022 ECOG performance status ECOG PERFORMANCE STATUS: 0- Fully active, able to carry on all pre-disease performance w/o restriction. SUBJECTIVE/INTERVAL HISTORY: Yadira Jeffrey has been doing well since EUA DANDC and colposcopy w/cervical biopsies. Reports pain has resolved and denies any bleeding. No fevers/chills or new complaints. She is scheduled for MRI tomorrow for follow up of the ovarian cyst. OBJECTIVE: VITALS: BP 105/51 Pulse 61 Temp (Src) 97.7 (Temporal) Resp 16 Ht 5' 7.008 (1.70m) Wt 298 lb (135.2kg) SpO2 95% BMI 46.66 kg/(m2). GENERAL: alert, oriented, pleasant, and cooperative. HEENT: Normocephalic, atraumatic, and no lesions. ASSESSMENT: 52 year old y/o female Body mass index is 46.66 kg/m?., anxiety, depression, HTN presenting with a complex right ovarian cyst and thickened endometrium. Also following with GI for gallbladder abnormalities. Complex right ovarian mass : unable to tolerate transvaginal probe or pelvic exams therefore the abdominal sono was limited. MRI 08/2022 shows 5.4 cm cyst, US shows 5.4cm cyst. MRI suggesting hemorrhagic cyst. Normal ca125 reviewed. Patient opted for surveillance at last visit and has repeat MRI tomorrow - follow up for televisit after MRI to discuss results. Thickened endometrium on 08/2022 MRI - s/p DANDC with benign inactive endometrium, no further work up needed Not up to date on cervical cancer screening - Patient does not tolerate office exams therefore we performed pap, colpo and cervical biopsies while under anesthesia, path reviewed and benign. Pap still pending will follow up results, plan for repeat pap in 3 years unless HPV can be added t (more content not included)... Normal [facility] Juanito 12-02-2022 CNPN Telephone (GYNML) -- YADIRA JEFFREY ([id number]) 1970 F Date Time Provider Department 12/02/22 SHEELA KAUR GYNML During your visit today, we recorded the following information about you: Sheela Kaur RN 12/02/2022 8:36 AM Signed Pt had Exam under anesthesia Colposcopy with cervical biopsies Dilation and curettage with Dr. Riojas on 11/29/22 Will call for post operative assessment Corin Magallanes RN 12/02/2022 11:39 AM Signed December 02, 2022 11:31 AM Patient called for post op follow up assessment. Reports she is doing well. Pain: Patient rates pain 4 on a scale of 0-10. 0 being no pain and 10 being worst pain imaginable. Patient states pain is tolerable. Taking Tylenol and Ibuprofen Diet: Patient is able tolerate fluids and normal diet. Bowel Movement: Patient is able to pass gas and has had a bowel movement. Voiding: Patient is able to void without difficulty, c/o burning with voiding since surgery, has improved. Advised to monitor, if does not completely improve, worsens or urgency/frequency in next few days to notify office Vaginal Discharge: Denies heavy vaginal bleeding Medication: Denies questions or concerns about medication. Post op restrictions reviewed with patient including - activity- no heavy lifting, on pelvic rest - keep incision clean and dry. Ok to use mild antibacterial soap. - reviewed signs and symptoms to notify office including signs of infection, fever, heavy vaginal bleeding. - she is aware of post op appointment 12/11/2022 Patient verbalized understanding and denies further questions at this time. Understands to call the office with further concerns/questions. Corin Magallanes RN Allergies As of Date: 12/02/2022 Noted Allergy Reaction CODEINE 07/08/2022 14 - Other: See Comments Date Reviewed: 11/29/2022 Reviewed by: Lory Echevarria RN - Fully Assessed Reason for Visit: Surgical Followup [104] Prescriptions as of 12/02/2022 - oxyCODONE IR (ROXICODONE) 5 mg immediate release tablet Take 1 tablet by mouth every 6 hours as needed for pain. - acetaminophen (TYLENOL EXTRA STRENGTH) 500 mg tablet Take 2 tablets by mouth every 6 hours. - ibuprofen (MOTRIN) 600 mg tablet Take 1 tablet by mouth every 6 hours. - senna-docusate (SENNA WITH DOCUSATE SODIUM) 8.6-50 mg per tablet Take 1-2 tablets by mouth once daily. May increase or decrease as needed to have one soft bowel movement daily - famotidine (PEPCID) 20 mg tablet TAKE 1 TABLET BY MOUTH TWICE DAILY NEEDED FOR 30 DAYS - gabapentin (NEURONTIN) 300 mg capsule TAKE 2 CAPSULES BY MOUTH AT BEDTIME FOR 30 DAYS - loratadine 10 mg cap Take 10 mg by mouth. - losartan (COZAAR) 25 mg tablet q 24 HR. - montelukast (SINGULAIR) 10 mg tablet Take 10 mg by mouth once daily. - rizatriptan (MAXALT) 10 mg tablet TAKE 1 TABLET BY MOUTH ONCE NEEDED FOR MIGRAINE. CAN REPEAT AFTER 2 HOURS IF NEEDED. STOP IMITREX - tiZANidine (ZANAFLEX) 2 mg tablet Take 2 mg by mouth once daily as needed. - aspirin, enteric coated (ASPIRIN, ENTERIC COATED) 81 mg EC tablet q 24 HR. - albuterol HFA (PROVENTIL HFA, VENTOLIN HFA) 90 mcg/actuation inhaler albuterol sulfate HFA 90 mcg/actuation aerosol inhaler - dicyclomine (BENTYL) 20 mg tablet - atorvastatin (LIPITOR) 20 mg tablet atorvastatin 20 mg tablet TAKE 1 TABLET BY MOUTH ONCE DAILY Problem List As Of Date 12/02/2022 Noted Resolved Sleep apnea [G47.30] 11/26/2022 HTN (hypertension) [I10] 11/26/2022 GERD (gastroesophageal reflux disease) [K21.9] 11/26/2022 Depression [F32.A] 11/26/2022 Asthma [J45.909] 11/26/2022 RLS (restless legs syndrome) [G25.81] 11/26/2022 Obesity, morbid, BMI 40.0-49.9 (HCC) [E66.01] 11/26/2022 HLD (hyperlipidemia) [E78.5] 11/26/2022 Chronic back pain [M54.9, G89.29] 11/26/2022 Encounter Status:Closed by SHEELA KAUR on 12/02/22 [facility] ANES POSTPROC EVALon 023 ANES POSTPROC EVAL HNO ID: [id number] Author: Nick Goldstein MD Service: Anesthesiology Author Type: Anesthesiologist Type: Anesthesia Postprocedure Evaluation Filed: 11/29/2022 7:50 PM Note Text: POST ANESTHESIA EVALUATION NOTE : 1970 Procedure Summary Date: 11/29/22 Room / Location: OR07 / [facility] OR Anesthesia Start: 1839 Anesthesia Stop: 1941 Procedures: EXAM UNDER ANESTHESIA PELVIC / VAGINAL (Pelvis) COLPOSCOPY W/ BIOPSY VAGINA/CERVIX (Vagina ) DILATION AND CURETTAGE (Pelvis) Diagnosis: Thickened endometrium (Thickened endometrium [R93.89]) Surgeons: Sonja Riojas MD Responsible Provider: Nick Goldstein MD Anesthesia Type: general ASA Status: 3 Anesthesia Type: general Airway Type: LMA Last Vitals Vitals Value Taken Time BP 138/87 11/29/225 11/29/221949 Pulse 71 11/29/221949 Resp 14 11/29/221949 SpO2 94 % 11/29/221949 Vitals shown include unvalidated device data. Post Anesthesia Patient Status Patient Evaluation: PACU. PACU/ICU Patient Condition: stable. Neurological Status: aware and responsive. Pulmonary Status: breathing comfortably on room air Airway Control: returned to baseline unsupported. Cardiovascular Status: stable. Pain Management: clinically adequate Postoperative Hydration: acceptable. Intraoperative Events: no significant anesthesia events Post Operative Nausea/Vomiting Status: no significant post operative nausea or vomiting Recommendation: continue current plan of care. Anesthesia Observations No Documentation SIGNATURE: Nick Goldstein MD PATIENT NAME: Yadira Jeffrey DATE: November 29, 2022 TIME: 7:50 PM CSN: [id number] [facility] ANES PRE-OPon 11-29-2022 ANES PRE-OP HNO ID: [id number] Author: Nick Goldstein MD Service: Anesthesiology Author Type: Anesthesiologist Type: Anesthesia Preprocedure Evaluation Filed: 11/29/2022 5:44 PM Note Text: ANESTHESIOLOGY DAY OF SURGERY NOTE : 1970 Procedure Information Date/Time: 11/29/22 1700 Procedures: EXAM UNDER ANESTHESIA PELVIC / VAGINAL (Pelvis) COLPOSCOPY W/ BIOPSY VAGINA/CERVIX (Vagina ) DILATION AND CURETTAGE (Pelvis) Location: OR / OR Surgeons: Sonja Riojas MD Estimated body mass index is 42.29 kg/m? as calculated from the following: Height as of 11/26/22: 170.2 cm (5' 7 ). Weight as of 11/26/22: 122.5 kg (270 lb). Most recent hematocrit and potassium results: Hematocrit 40.5 07/08/2022 Potassium 4.1 11/20/2022 Relevant Problems ANESTHESIA (+) Sleep apnea CARDIO (+) HTN (hypertension) GI (+) GERD (gastroesophageal reflux disease) PULMONARY (+) Asthma (+) Sleep apnea I - PHYSICAL EVALUATION AIRWAY Patient intubated: No. Tracheostomy tube not present Mallampati: II. TM distance: >3 FB. Neck ROM: full ROM without neurological symptoms. Mouth opening: adequate. Short neck: no. Thick neck: no DENTAL Dental findings: teeth intact. Additional exam findings: no II - ANESTHESIA PLAN ASA Score: 3 Anesthetic Plan: general Airway type: LMA The patient is not a current smoker. NPO Status: adequate Beta Helen Monitoring Plan Monitoring plan: standard ASA. Post Procedure Analgesic Plan Postoperative analgesic plan: multimodal analgesia. Informed Consent Anesthetic risks, benefits, alternatives, personnel and consent discussed: yes. Patient / Responsible Green Party agrees to proceed: yes Patient / Surrogate agrees to blood products: Yes Potential Anesthesia issues that may suggest increased risk of complications or contraindication to planned procedure: none. Vitals Value Taken Time BP 134/85 11/29/22 1400 Pulse 79 11/29/22 1400 Resp 13 11/29/22 1400 Temp 36.5 ?C (97.7 ?F) 11/29/22 1400 SpO2 97 % 11/29/22 1400 Facility-Administered Medications as of 11/29/2022 Medication Dose Route Frequency - lidocaine (PF) 10 mg/mL (1 %) 1-2 mg injection (XYLOCAINE) 0.1-0.2 mL INTRADERMAL PRN - lactated ringers iv infusion 5-30 mL/hr INTRAVENOUS CONTINUOUS - NaCl 0.9% iv flush bag 20 mL INTRAVENOUS PRN - [COMPLETED] acetaminophen 1,000 mg tab(s) (TYLENOL) 1,000 mg ORAL ONCE - [COMPLETED] promethazine 12.5 mg tab(s) (PHENERGAN) 12.5 mg ORAL NOW - lactated ringers iv infusion 30 mL/hr INTRAVENOUS CONTINUOUS Outpatient Medications as of 11/29/2022 Medication Sig - famotidine (PEPCID) 20 mg tablet TAKE 1 TABLET BY MOUTH TWICE DAILY NEEDED FOR 30 DAYS - gabapentin (NEURONTIN) 300 mg capsule TAKE 2 CAPSULES BY MOUTH AT BEDTIME FOR 30 DAYS - loratadine 10 mg cap Take 10 mg by mouth. - losartan (COZAAR) 25 mg tablet q 24 HR. - montelukast (SINGULAIR) 10 mg tablet Take 10 mg by mouth once daily. - traMADol (ULTRAM) 50 mg tablet twice daily. - aspirin, enteric coated (ASPIRIN, ENTERIC COATED) 81 mg EC tablet q 24 HR. - dicyclomine (BENTYL) 20 mg tablet - atorvastatin (LIPITOR) 20 mg tablet atorvastatin 20 mg tablet TAKE 1 TABLET BY MOUTH ONCE DAILY - rizatriptan (MAXALT) 10 mg tablet TAKE 1 TABLET BY MOUTH ONCE NEEDED FOR MIGRAINE. CAN REPEAT AFTER 2 HOURS IF NEEDED. STOP IMITREX - tiZANidine (ZANAFLEX) 2 mg tablet Take 2 mg by mouth once daily as needed. - albuterol HFA (PROVENTIL HFA, VENTOLIN HFA) 90 mcg/actuation inhaler albuterol sulfate HFA 90 mcg/actuation aerosol inhaler I have interviewed and examined the patient. I have reviewed the medical record and/or the pre-anesthesia evaluation, pertinent labs, and test results. This contains updated information obtained within 48 hours of Surgery/Procedure. SIGNATURE: Nick Goldstein MD PATIENT NAME: Yadira Jeffrey DATE: November 29, 2022 TIME: 5:06 PM CSN: [id number] Normal [facility] HPV W/GENOTYPE THIN PREPon 0 11-29-2022 HPV 16 Ag Ql (Unsp spec) Negative Normal Negative for HPV DNA high risk type 16 by PCR [facility] Comment on above: Order Comment: Speci men Type: FLUID SPECIMEN Ordering Facility: [facility] Address: [address] [place], [place] [id number] Performed By: #### L [id number] #### [facility] CLIA [id number] [address] [facility] DESK [id number] [place] [address] [place] HPV 18 Ag Ql (Unsp spec) Negative Normal Negative for HPV DNA high risk type 18 by PCR [facility] Comment on above: Order Comment: Speci men Type: FLUID SPECIMEN Ordering Facility: [facility] Address: [address] [place] [address] Performed By: #### L [id number] #### [facility] CLIA [id number] [address] [place] [address] [place] HPV 31+33+35+39+45+51+5 2+56+58+59+66+68 DNA MANUEL+probe Ql (Cvx) Negative for HPV DNA high risk types: 31,33,35,39,45,51,52,56,58 ,59,66,68 by PCR. Normal Negative for HPV DNA high risk types: 31,33,35,39 ,45,51,52,5 6,58,59,66, 68 by PCR. [facility] Comment on above: Order Comment: Speci men Type: FLUID SPECIMEN Ordering Facility: [facility] Address: [address] [place] [address] Performed By: #### L [id number] #### [facility] CLIA [id number] [address] [place] [address] [place] OPERATIVE NOon 11-29-2022 OPERATIVE NO HNO ID: [id number] Author: Sonja Riojas MD Service: Gynecology Oncology Author Type: Physician Type: Operative Report Filed: 11/29/2022 7:40 PM Note Text: OPERATIVE/PROCEDURE REPORT LOG ID: [id number] SURGERY/PROCEDURE DATE: 11/29/2022 INCISION/PROCEDURE START TIME: 6:55 PM INCISION CLOSE/PROCEDURE END TIME: 7:35 PM SURGEON(S)/PROCEDURALIST(S ) AND AVIAN KEEPER(S): Surgeon(s) and Role: * Sonja Riojas MD - Primary * Ekaterina Pollard MD No Additional Staff SURGERY/PROCEDURE(S): Exam under anesthesia Colposcopy with cervical biopsies Dilation and curettage ANESTHESIA: General INDICATION FOR PROCEDURE: 52 y/o female presenting for Eua due to inability to tolerate exam in the office, pap and colposcopy due to not up to date on screening and dilation and curettage for further evaluation of thickened endometrium. INTRAOPERATIVE FINDINGS: Exam under anesthesia revealed normal vagina and cervix. Colposcopic examination revealed acetowhite changes as 12,3 and 9 o clock. DANDc with minimal endometrial tissue. SURGERY/PROCEDURE DETAILS: After informed consent was obtained patient was taken to the operating room where she was placed under general anesthesia. She was positioned in dorsal lithotomy with arms out. Care was taken to avoid excessive hyperflexion or extension of legs and hips, lateral leg was padded to avoid excessive pressure. Time out was performed noting correct patient and procedure. SCDs were in place for DVT prophylaxis and no prophylactic antibiotics were indicated. Speculum was placed into the vagina to visualize the cervix and pap was obtained. Acetic acid was applied to the cervix noting acetowhite changes as 12,3 and 9 o clock. Patient was then prepped and draped in normal sterile fashion. Sterile speculum was placed in the vagina. Endocervical curettage was performed. Cervix was serially dilated. Uterus sounded to 7cm. Sharp curettage was performed with minimal tissue obtained. Kevorkian biopsy forceps were then used to obtain cervical biopsies at 12,3 and 9 o clock. Hemostasis was obtained with silver nitrate, monsels and a figure of 8 o vicryl stitch at 12 o clock. After hemostasis was confirmed, all instruments were removed from the vagina and counts were correct at the end of the procedure. Patient tolerated the procedure well. PRE-OP/PRE-PROCEDURE DIAGNOSIS: thickened endometrium, due for cervical cancer screening POST-OP/POST-PROCEDURE DIAGNOSIS: Same as Preop ESTIMATED BLOOD LOSS: 20 mls SPECIMENS: ID Type Source Tests Collected by Time Destination A : Fluid CERVICAL SCREENING FLUID PAP FLUID CERVICAL SCREENING Sonja Riojas MD 11/29/2022 6:58 PM B : Tissue ENDOCERVIX CURETTINGS SURGICAL PATHOLOGY Sonja Riojas MD 11/29/2022 7:12 PM C : Tissue ENDOMETRIUM CURETTINGS SURGICAL PATHOLOGY Sonja Riojas MD 11/29/2022 7:12 PM D : 12 o' clock Tissue CERVIX BIOPSY SURGICAL PATHOLOGY Sonja Riojas MD 11/29/2022 7:18 PM E : 9 o' clock Tissue CERVIX BIOPSY SURGICAL PATHOLOGY Sonja Riojas MD 11/29/2022 7:18 PM F : 3 o' clock Tissue CERVIX BIOPSY SURGICAL PATHOLOGY Sonja Riojas MD 11/29/2022 7:18 PM IMPLANTABLE DEVICES: NONE DRAINS: None HEMOSTATIC AGENTS: silver nitrate, monsel's COMPLICATIONS: None PARTICIPATION IN SURGERY/PROCEDURE: I/primary surgeon/proceduralist performed the procedure with assistance. I was scrubbed and present for all quinn portions of the above procedure. SIGNATURE: Sonja Riojas MD PATIENT NAME: Yadira Jeffrey DATE: November 29, 2022 TIME: 7:35 PM Sonja Riojas MD [facility] PAP FLUID CERVICAL SCREENING on 11-29-2022 CASE REPORT [facility] Comment on above: Order Comment: Speci men Type: FLUID SPECIMEN Ordering Facility: [facility] Address: [address] [place], [place] [address] Result Comment: Gyne cologic Cytology Report Case: [id number] Authorizing Provider: Sonja Riojas MD Collected: 11/29/2022 06:58 PM Ordering Location: [facility] Received: 12/02/2022 11:16 AM Operating Room First Screen: LUNA Jamison, ASCP Pathologist: Freddie Jack MD Specimen: Pap Test, ThinPrep, CERVICAL SCREENING FLUID Performed By: #### L [id number] #### [facility] CLIA [id number] [address] [place] [address] [place] CYTOLOGY INTERPRETATION PAP [facility] Comment on above: Order Comment: Speci men Type: FLUID SPECIMEN Ordering Facility: [facility] Address: [address] [place] [id number] Result Comment: Nega tive for Intraepithelial lesion or malignancy. Performed By: #### L [id number] #### [facility] CLIA [id number] [address] [place], [place] [address] [place] DIAGNOSIS COMMENT Normal [facility] Comment on above: Order Comment: Speci men Type: FLUID SPECIMEN Ordering Facility: [facility] Address: [address] [place], [place] [id number] Performed By: #### L [id number] #### [facility] CLIA [id number] [address] FINAL DIAGNOSIS Normal [facility] Comment on above: Order Comment: Speci men Type: FLUID SPECIMEN Ordering Facility: [facility] Address: [address] [place] [address] Result Comment: A - CERVICAL SCREENING FLUID Satisfactory for interpretation. Negative for Intraepithelial lesion or malignancy. Performed By: #### L [id number] #### [facility] CLIA [id number] [address] [place] [address] FINAL PERFORMING LAB Normal [facility] Comment on above: Order Comment: Speci men Type: FLUID SPECIMEN Ordering Facility: [facility] Address: [address] [place] [address] Result Comment: Tech nical component, health careers instructor screening performed at [facility], [address] [id number] CLIA# [id number] Diagnostic interpretation performed at [facility], [address] [id number] CLIA# [id number] Buffing Machine Operator Semiautomatic: Yung Gillis M.D. Performed By: #### L [id number] #### [facility] CLIA [id number] [address] [place] [address] ORDER COMMENT Normal [facility] Comment on above: Order Comment: Speci men Type: FLUID SPECIMEN Ordering Facility: [facility] Address: [address] [address] Result Comment: Pre- op diagnosis: Thickened endometrium [R93.89] Performed By: #### L [id number] #### [facility] CLIA [id number] [facility] [address] [place] PAP DISCLAIMER COMMENT The Pap Smear is a screening test for cervical cancer. False negative results occur with all screening tests, emphasizing the need for rescreening at recommended intervals, and clinical correlation. [facility] Comment on above: Order Comment: Speci men Type: FLUID SPECIMEN Ordering Facility: [facility] Address: [address] [place] [address] Performed By: #### L [id number] #### [facility] CLIA [id number] [address] [place] [address] PAP MARINA DRY DOCK MANAGER COMMENT This specimen has be en analyzed by the ThinPrep Imaging System, an automated imaging and review system, which assists the laboratory in evaluating cells on ThinPrep Pap tests. Following automated imaging, selected park from every slide are reviewed by a health careers instructor. [facility] Comment on above: Order Comment: Speci men Type: FLUID SPECIMEN Ordering Facility: [facility] Address: [address] [place] [address] Performed By: #### L [id number] #### [facility] CLIA [id number] [address] [place] [address] PT EDon 11-29-2022 PT ED HNO ID: [id number] Author: Lory Echevarria RN Service: Nursing Author Type: Registered Nurse Type: Patient Education Filed: 11/29/2022 9:30 PM Note Text: PATIENT EDUCATION TOPIC: PROCEDURE / SURGERY: Post-op Teaching: Med Administration and Symptom Management PATIENT NAME: Yadira Jeffrey PATIENT LOCATION: [place] OR [place] READINESS TO LEARN COGNITIVE ABILITY: Alert and oriented MOTIVATION TO LEARN: Eager FAMILY SUPPORT: None - Unavailable/disinterested INSTRUCTION PROVIDED TO: Patient PATIENT LEARNS BEST BY: Individual Instruction Written Instruction - Hand-outs Verbal Instruction FACTORS AFFECTING LEARNING: None PHYSICAL LIMITATIONS AFFECTING LEARNING: None LEARNING RESPONSE DIAGNOSIS: ADULT: Well Adult PATIENT/FAMILY RESPONSE: Verbalizes understanding of: POST-OPERATIVE INSTRUCTIONS-Correct actions to take to reduce postoperative complications METHOD OF INSTRUCTION: Individual instruction Written instruction - handouts Verbal instruction FOLLOW-UP PLAN: Complete - No need for follow-up INSTRUCTIONAL AIDS USED: NA SUPPLEMENTAL MATERIAL PROVIDED TO PATIENT: None REFERRAL (RECOMMENDATION): None Electronically Signed By: Lory Echevarria [facility] PT ED HNO ID: [id number] Author: Chelo Hernandez RN Service: ? Author Type: Registered Nurse Type: Patient Education Filed: 11/29/2022 1:51 PM Note Text: PATIENT EDUCATION TOPIC: PROCEDURE / SURGERY: Pre-op Teaching: Protocols PATIENT NAME: Yadira Jeffrey PATIENT LOCATION: [place] OR POOL READINESS TO LEARN COGNITIVE ABILITY: Alert and oriented MOTIVATION TO LEARN: Interested FAMILY SUPPORT: None - Unavailable/disinterested INSTRUCTION PROVIDED TO: Patient PATIENT LEARNS BEST BY: Individual Instruction FACTORS AFFECTING LEARNING: None PHYSICAL LIMITATIONS AFFECTING LEARNING: None LEARNING RESPONSE DIAGNOSIS: ADULT: Well Adult PATIENT/FAMILY RESPONSE: Information received as demonstrated by interest and questions METHOD OF INSTRUCTION: Individual instruction FOLLOW-UP PLAN: Complete - No need for follow-up INSTRUCTIONAL AIDS USED: NA SUPPLEMENTAL MATERIAL PROVIDED TO PATIENT: None REFERRAL (RECOMMENDATION): None Electronically Signed By: Chelo Hernandez [facility] SURGICAL PATHOLOGYon 023 CASE REPORT [facility] Comment on above: Order Comment: Speci men Type: TISSUE SPECIMEN Ordering Facility: [facility] Address: [address] [place] [address] Result Comment: Surg ical Pathology Report Case: [id number] Authorizing Provider: Sonja Riojas MD Collected: 11/29/2022 07:12 PM Ordering Location: [facility] Received: 12/02/2022 06:58 AM Operating Room Pathologist: Jhonatan Ontiveros MD Specimens: A) - ENDOCERVIX CURETTINGS B) - ENDOMETRIUM CURETTINGS C) - CERVIX BIOPSY, 12 o' clock D) - CERVIX BIOPSY, 9 o' clock E) - CERVIX BIOPSY, 3 o' clock Performed By: #### S #### [facility] CLIA [id number] [address] [place] CLINICAL HISTORY [facility] Comment on above: Order Comment: Speci men Type: TISSUE SPECIMEN Ordering Facility: [facility] Address: [address] [place], [place] [address] Result Comment: Pre- op diagnosis: Thickened endometrium [R93.89] Performed By: #### S #### [facility] CLIA [id number] [address] [place] [address] FINAL DIAGNOSIS Normal [facility] Comment on above: Order Comment: Speci men Type: TISSUE SPECIMEN Ordering Facility: [facility] Address: [address] [place] [address] Result Comment: A. E ndocervix, curettage: ---Benign endocervical glandular epithelium. B. Endometrium, curettage: ---Superficial strips of inactive endometrium. C. Cervix, at 12:00, biopsy: ---Benign transformation zone mucosa with marked acute and chronic inflammation. D. Cervix, at 9:00, biopsy: ---Benign transformation zone mucosa with marked acute and chronic inflammation. E. Cervix, at 3:00, biopsy: ---Benign transformation zone mucosa with marked acute and chronic inflammation. Performed By: #### S #### [facility] CLIA [id number] [address] [place] [address] FINAL PERFORMING LAB Normal [facility] Comment on above: Order Comment: Speci men Type: TISSUE SPECIMEN Ordering Facility: [facility] Address: [address] [place] [address] Result Comment: Diag nostic interpretation performed at [facility], [address] [place] [address] CLIA# [id number] Buffing Machine Operator Semiautomatic: Yung Gillis M.D. Performed By: #### S #### [facility] CLIA [id number] [address] [place] [address] GROSS DESCRIPTION Normal [facility] Comment on above: Order Comment: Speci men Type: TISSUE SPECIMEN Ordering Facility: [facility] Address: [address] [place] [address] Result Comment: A. E NDOCERVIX CURETTINGS Received in formalin are multiple sidhu, soft feathery segments of tissue mixed with gelatinous material aggregating to 2.6 x 0.7 x 0.3 cm. Totally submitted in one cassette. B. ENDOMETRIUM CURETTINGS Received in formalin are multiple red-sidhu, soft feathery segments of tissue mixed with hemorrhagic and gelatinous materials aggregating to 2.7 x 1.1 x 0.2 cm. Totally submitted in one cassette. C. CERVIX BIOPSY Received in formalin is one piece of sidhu-red, soft tissue measuring 0.7 x 0.3 x 0.1 cm. Totally submitted in one cassette. D. CERVIX BIOPSY Received in formalin is one piece of sidhu, soft tissue measuring 0.5 x 0.3 x 0.2 cm. Totally submitted in one cassette. E. CERVIX BIOPSY Received in formalin is one piece of brown-sidhu, soft tissue measuring 0.5 x 0.3 x 0.2 cm. Totally submitted in one cassette. CL December 02, 2022 12:26 PM Gross examination performed at [facility], [address] [place] [address] Performed By: #### S #### [facility] CLIA [id number] [address] [place] [address] [place] HISTORY PHYSICALon 3 HISTORY PHYSICAL HNO ID: [id number] Author: Kamille Rosenthal PA-C Service: ? Author Type: Physician Tool Lathe Operator Type: HANDP Filed: 11/26/2022 2:03 PM Note Text: HISTORY AND PHYSICAL EXAMINATION SERVICE DATE: 11/26/2022 SERVICE TIME: 11:24 AM PRIMARY CARE PHYSICIAN: Gilmar Tesfaye CNP This is a virtual visit using [employer] video visit. It required patient-provider interaction for the medical decision making as documented below. REASON FOR VISIT: Yadira Jeffrey is a 52 year old female who is scheduled for Procedure(s): EXAM UNDER ANESTHESIA PELVIC / VAGINAL (N/A) COLPOSCOPY W/ BIOPSY VAGINA/CERVIX (N/A) DILATION AND CURETTAGE (N/A) at the request of Dr. Sonja Riojas for consultation. My final recommendation will be communicated back to the requesting physician by way of shared medical record or letter. I have communicated my name and active licensure. The patient's identity and physical location were verified at the time of this visit. Either the patient or their legal national account representative has been informed of the risks and benefits of -- and alternatives to -- treatment through a remote evaluation and consents to proceed with the evaluation remotely. Subjective The patient has the following: ACTIVE PROBLEM LIST Sleep Apnea Htn (Hypertension) Gerd (Gastroesophageal Reflux Disease) Depression Asthma Rls (Restless Legs Syndrome) Obesity, Morbid, Bmi 40.0-49.9 (Hcc) Hld (Hyperlipidemia) Chronic Back Pain COVID-19 Immunization Status COVID-19 VACCINE (Series Information) Completed 03/23/2022 Imm Admin: COVID-19 booster vaccine, age 12+ yr, bivalent (PFIZER-BIONTECH) 05/30/2021 Imm Admin: COVID-19 original vaccine, age 12+ yr, monovalent (PFIZER-BIONTECH - PURPLE TOP) 10/10/2020 Imm Admin: COVID-19 original vaccine, age 12+ yr, monovalent (PFIZER-BIONTECH - PURPLE TOP) Only the first 3 history entries have been loaded, but more history exists. Patient reports being fully vaccinated against COVID-19. Patient reports no prior COVID-19 infections. CHIEF COMPLAINT: Pre-op exam HPI: This is a 52 year old female who complains of thickened endometrium and ovarian cyst seen on imaging to evaluate intermittent right upper abdominal pain and spasms. She denies abnormal bleeding or discharge. She elects to proceed with above procedure. REVIEW OF SYSTEMS: General: No weight loss, malaise or fevers. Neurological: RLS -takes GAbapentin at hs Positive for: headaches (migraines). Negative for: multiple sclerosis, Parkinson's disease, seizures and strokes. Respiratory: Positive for: asthma, obstructive sleep apnea and CPAP/BiPAP noncompliant. Negative for: COPD, prior COVID-19 infection, current cough and URI < 2 weeks. Cardiovascular: History of superficial thrombus from varicose veins 2016 - treated with aspirin. No current symptoms. Wears compression stockings, denies pitting edema Positive for: hyperlipidemia and hypertension Negative for: angina, arrhythmia, CAD, chest pain, CHF, DVT/PE and murmur/valvular heart disease. GI: Gallbladder thickening on imaging Positive for: GERD (, history of H. Pylori) and irritable bowel syndrome (under investigation - takes Bentyl prn, mixed symptoms. Following with GI) Negative for: inflammatory bowel disease, pancreatitis and vomiting. : Kidney cyst. No history of dysuria, frequency or incontinence, stones or chronic kidney disease. No difficulty urinating, nocturia > 1 time per night or hematuria. REGIONAL FLATBED TRUCK DRIVER: See HPI. Endocrine: History of prediabetes - no current medications. No history of diabetes. Has not taken steroids within the past 30 days. No history of endocrinological symptoms or problems. Negative for: diabetes mellitus, hyperthyroidism, hypothyroidism, polydipsia and steroid for chronic problem. Hematology: No history of bleeding or clotting disorder. Patient is not taking anti-coagulation or platelet medications. No history of hematological symptoms or problems. Oncology: No history of CA metastasis, chemo within 30 days, or radiotherapy within 90 days. No history of oncological symptoms or problems. Psych: Positive for: depression (no current medication. Therapy in the past. Denies SI/HI). Musculoskeletal: Positive for: back pain and joint pain (and neck pain - takes Tramadol bid and Zanaflex infrequently prn). PAST MEDICAL HISTORY Diagnosis Date Anxiety Asthma Chronic back pain and neck pain Depression GERD (gastroesophageal reflux disease) HLD (hyperlipidemia) HTN (hypertension) Migraines Obesity, morbid, BMI 40.0-49.9 (HCC) RLS (restless legs syndrome) Sleep apnea PAST SURGICAL HISTORY Procedure Laterality Date ARTHROSCOPY KNEE DIAGNOSTIC W/WO SYNOVIAL BX SPX Left FAMILY HISTORY Problem Relation Age of Onset Heart disease Mother Auto-Immune Hepatitis Mother Colon Cancer Mother Blood Disease Mother Osteoporosis Mother Arthritis Mother Depression Mother Depres (more content not included)... Normal [facility] -- YADIRA JEFFREY ([id number]) 1970 F Date Time Provider Department 11/22/22 CORIN MAGALLANES During your visit today, we recorded the following information about you: Corin Magallanes RN 11/22/2022 11:08 AM Signed Procedure:COLPOSCOPY W/ BIOPSY VAGINA/CERVIX [facility] Physician: Dr. Riojas Location: [facility]: [phone] Date AND Time: 11/29/2022 time will be given to you, by the hospital, after 12:00noon, the DAY BEFORE the procedure. MEDICAL CLEARANCE: No CARDIAC CLEARANCE: No PRE ADMISSION TESTING: scheduled 11/26/2022 THE FOLLOWING WAS EVALUATED Motivation To Learn: Interested Family/Significant Other Support: Unable to assess - Family not present Cognitive Ability: Alert and oriented Patient Learns Best By: Individual Instruction Verbal Instruction The Following Influencing Factors Were Barriers To This Education Session: None The Following Physical Limitations Were Barriers To This Education Session: None Instruction Provided To: Patient MEDICATION INFORMATION ASPIRIN and ADVIL can make you more prone to bleeding after surgery. Please STOP taking these medications at least (5) days before and for (3) days after surgery or procedure. Some common medications that contain ASPIRIN or act like Aspirin are TO BE AVOIDED: This is a list of the medications you should avoid: Advill Celebrex Motrin Aggrenox Clinoril Naprosyn(naproxen) Agrylin NSAIDS Pepto-Bismol Aleve Ecotrin Persantine Elvira-Follansbee Excedrin Plaquenil Anacin Heparin Plavix Ascriptin Herbals Pletal Aspergum Ibuprofen Ticlid Carlos Indocin Trental Bextra Midol Vanquish Bufferin Gingko Biloba Vitamin E (MVI) MEDICATIONS YOU MAY SUBSTITUTE Tylenol (*Denotes prescription needed to obtain these medications) Learning Topic: Procedure/Surgery: Instructions reviewed for arrival time, parking and admission. Specific topics reviewed and discussed with all surgical patients include: No eating, drinking, or smoking after midnight prior to surgery. Medications as prescribed by anesthesia or the physician. Bowel Prep as indicated. Review of information contained in surgical packet Pre-operative and intra-operative general activities were reviewed including: Holding Area, assessments, surgical positioning, and Family Waiting Area. Written post-operative instructions were given to the patient regarding post-op activity, pain control, symptoms to report. Post-operative instructions provided and reviewed with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 visible pulmonary or pleural disease. LIVER: No enlargement, atrophy, suspicious density, or significant focal lesion. BILIARY: Poorly defined wall thickening of gallbladder without calcified stones or abnormal duct dilation. No free fluid. PANCREAS: No lesion, fluid collection, or abnormal duct dilatation. SPLEEN: No enlargement or focal lesion. ADRENALS: No mass or enlargement. KIDNEYS: 5 mm nonobstructing stone within left kidney. BOWEL/MESENTERY: No visible mass, obstruction, or bowel wall thickening. AORTA/VASCULAR: No aneurysm or dissection. RETROPERITONEUM: No mass or adenopathy. LYMPH NODES: No adenopathy. URINARY BLADDER: No visible focal wall thickening, lesion, or calculus. PELVIC ORGANS: 5.4 cm cystic structure within right adnexa suspected to arise from right ovary. Unremarkable uterus and left ovary. ABDOMINAL WALL: No mass or hernia. BONES: Marked disc height reduction at L1-2 through L5-S1 with prominent posterior disc-osteophyte complexes. No bone lesion or fracture. OTHER: Negative. IMPRESSION: 1.Wall thickened, slightly heterogeneous appearance of gallbladder suggestive of cholecystitis. Ultrasound evaluation of gallbladder is recommended. 2.Interval increase in size of patient's right ovarian cyst, now 5.4 cm. While not overtly suspicious, the slightly heterogeneous appearance and continued increase in size since 03/15/2022 is concerning. Consider MRI of pelvis for further evaluation. 3. Nonobstructing left nephrolithiasis. 4. 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 Normal [facility] LIPASEon 08-21-2022 Lipase [Catalytic activity/Vol] 71.0 U/L Critically low 73.0-393.0 [facility] Comment on above: Performed By: #### L IPA, CMP #### [facility] [address] [place] [address] Dr. Soledad Farmer PROF 14(COMP METB)on 023 Albumin [Mass/Vol] 4.2 g/dL Normal 3.4-5.0 [facility] Comment on above: Performed By: #### L IPA, CMP #### [facility] [address] [place] [address] Dr. Soledad Farmer Albumin/Globulin [Mass ratio] 1.2 {ratio} Normal [facility] Comment on above: Performed By: #### L IPA, CMP #### [facility] [address] [place] [address] Dr. Soledad Farmer ALP [Catalytic activity/Vol] 90 U/L Normal 46-116 [facility] Comment on above: Performed By: #### L IPA, CMP #### [facility] [address] [place] [address] Dr. Soledad Farmer ALT [Catalytic activity/Vol] 28 U/L Normal 14-59 [facility] Comment on above: Performed By: #### L IPA, CMP #### [facility] [address] [place] [address] Dr. Soledad Farmer Anion gap [Moles/Vol] 10.5 mmol/L Normal [facility] Comment on above: Performed By: #### L IPA, CMP #### [facility] [address] [place] [address] Dr. Soledad Farmer AST [Catalytic activity/Vol] 20 U/L Normal 15-37 [facility] Comment on above: Performed By: #### L IPA, CMP #### [facility] [address] [place] [address] Dr. Soledad Farmer Bilirubin [Mass/Vol] 0.6 mg/dL Normal 0.2-1.0 [facility] Comment on above: Performed By: #### L IPA, CMP #### [facility] [address] [place] [address] Dr. Soledad Farmer Calcium [Mass/Vol] 9.5 mg/dL Normal 8.5-10.1 [facility] Comment on above: Performed By: #### L IPA, CMP #### [facility] [address] [place] [address] Dr. Soledad Farmer Chloride [Moles/Vol] 103 mmol/L Normal 98-107 [facility] Comment on above: Performed By: #### L IPA, CMP #### [facility] [address] [place] [address] Dr. Soledad Farmer CO2 [Moles/Vol] 30.8 mmol/L Normal 21.0-32.0 [facility] Comment on above: Performed By: #### L IPA, CMP #### [facility] [address] [place] [address] Dr. Soledad Farmer Creatinine [Mass/Vol] 0.57 mg/dL Normal 0.55-1.02 [facility] Comment on above: Performed By: #### L IPA, CMP #### [facility] [address] [place] [address] Dr. Soledad Farmer EGFR-AF MOZAMBICAN >60 Normal >=60 [facility] Comment on above: Performed By: #### L IPA, CMP #### [facility] [address] [place] [address] Dr. Soledad Farmer EGFR-NON AF MOZAMBICAN >60 Normal >=60 [facility] Comment on above: Performed By: #### L IPA, CMP #### [facility] [address] [place] [address] Dr. Soledad Farmer Globulin (S) [Mass/Vol] 3.5 g/dL Normal [facility] Comment on above: Performed By: #### L IPA, CMP #### [facility] [address] [place] [address] Dr. Soledad Farmer Glucose [Mass/Vol] 79 mg/dL Normal 74-106 [facility] Comment on above: Performed By: #### L IPA, CMP #### [facility] [address] [place] [address] Dr. Soledad Farmer Potassium [Moles/Vol] 4.3 mmol/L Normal 3.5-5.1 [facility] Comment on above: Performed By: #### L IPA, CMP #### [facility] [address] [address] [address] Soledad Farmer Protein [Mass/Vol] 7.7 g/dL Normal 6.4-8.2 [facility] Comment on above: Performed By: #### L IPA, CMP #### [facility] [address] [address] [address] Soledad Farmer Sodium [Moles/Vol] 140 mmol/L Normal 136-145 [facility] Comment on above: Performed By: #### L IPA, CMP #### [facility] [address] [address] [address] Soledad Farmer Urea nitrogen [Mass/Vol] 13.0 mg/dL Normal 7.0-18.0 [facility] Comment on above: Performed By: #### L IPA, CMP #### [facility] [address] [place] [address] Dr. Soledad Farmer Urea nitrogen/Creatinine [Mass ratio] 22.8 mg/mg Normal [facility] Comment on above: Performed By: #### L IPA, CMP #### [facility] [address] [place] [address] Dr. Soledad Farmer US SINGLE QUAD RT UPPERon US SINGLE QUAD RT UPPER EXAM: US SINGLE QUAD RT UPPER HISTORY: Right upper quadrant abdominal pain. Abnormal CT abdomen. COMPARISON: 12/19/2021. CT abdomen 08/16/2022. TECHNIQUE: Ultrasound right upper quadrant abdominal. FINDINGS: Overall suboptimal examination secondary to patient's inability to cooperate with breath-holding instructions. Hepatic echotexture is uniform. No focal hepatic lesions are visualized. No gallstones are identified. Gallbladder wall measures 3 mm in thickness, at the upper limits of normal. No pericholecystic fluid. Patient expressed pain upon imaging of the gallbladder indicating positive sonographic Jeffries sign. No significant biliary ductal dilatation. The common bile duct measures 5 mm in diameter. Unremarkable appearance of the pancreas. The right kidney measures 12.2 cm in length. No evidence of hydronephrosis or right renal calculus. IMPRESSION: 1. No cholelithiasis. The gallbladder wall is at the upper limits of normal in thickness. Equivocal sonographic Jeffries sign. No definite sonographic evidence of acute cholecystitis. If patient's symptoms persist, dedicated nuclear medicine hepatobiliary scan could be considered to assess cystic duct patency. 2. No biliary ductal dilatation. Electronically authenticated by: CONNIE GAMBLE Date: 2022-08-21 14:45 Normal [facility] 08-16-2022 CNPN Telephone (GASTSP) -- YADIRA JEFFREY ([id number]) 1970 F Date Time Provider Department 08/16/22 ALEJANDRO LIM GASTSP During your visit today, we recorded the following information about you: Maddy Schilling MA 08/16/2022 3:33 PM Signed Yad[facility] scanned into epic Allergies As of Date: 08/16/2022 Noted Allergy Reaction CODEINE 07/08/2022 14 - Other: See Comments Date Reviewed: 07/08/2022 Reviewed by: Melva Sol LPN - Fully Assessed Reason for Visit: Results [95] Prescriptions as of 08/19/2022 - gabapentin (NEURONTIN) 300 mg capsule TAKE 2 CAPSULES BY MOUTH AT BEDTIME FOR 30 DAYS - loratadine 10 mg cap Take 10 mg by mouth. - losartan (COZAAR) 25 mg tablet q 24 HR. - montelukast (SINGULAIR) 10 mg tablet Take 10 mg by mouth once daily. - omeprazole (PRILOSEC) 40 mg capsule - rizatriptan (MAXALT) 10 mg tablet TAKE 1 TABLET BY MOUTH ONCE NEEDED FOR MIGRAINE. CAN REPEAT AFTER 2 HOURS IF NEEDED. STOP IMITREX - tiZANidine (ZANAFLEX) 2 mg tablet Take 2 mg by mouth once daily as needed. - traMADol (ULTRAM) 50 mg tablet twice daily. - aspirin, enteric coated (ASPIRIN, ENTERIC COATED) 81 mg EC tablet q 24 HR. - albuterol HFA (PROVENTIL HFA, VENTOLIN HFA) 90 mcg/actuation inhaler albuterol sulfate HFA 90 mcg/actuation aerosol inhaler - dicyclomine (BENTYL) 20 mg tablet - atorvastatin (LIPITOR) 20 mg tablet atorvastatin 20 mg tablet TAKE 1 TABLET BY MOUTH ONCE DAILY Problem List As Of Date: 08/16/2022 (None) Encounter Status:Closed by MADDY SCHILLING on 08/19/22 Normal [facility] CBC panel Auto (Bld)on 07-08 Erythrocyte distribution width (RBC) [Ratio] 13.0 % Normal 11.5-15.0 [facility] Comment on above: Order Comment: Speci men Type: BLOOD SPECIMEN Ordering Facility: [facility] Address: [address] [place] [address] Performed By: #### 5 8410-2 #### [facility] CLIA [id number] [place] [address] [place] Hematocrit (Bld) [Volume fraction] 40.5 % Normal 36.0-46.0 [facility] Comment on above: Order Comment: Ebonyi anh Type: BLOOD SPECIMEN Ordering Facility: [facility] Address: [address] [place] [address] Performed By: #### 5 8410-2 #### [facility] CLIA [id number] [place] [address] [place] Hemoglobin (Bld) [Mass/Vol] 13.7 g/dL Normal 11.5-15.5 [facility] Comment on above: Order Comment: Speci men Type: BLOOD SPECIMEN Ordering Facility: [facility] Address: [address] [place] [address] Performed By: #### 5 8410-2 #### [facility] CLIA [id number] [place] [address] [place] MCH (RBC) [Entitic mass] 30.8 pg Normal 26.0-34.0 [facility] Comment on above: Order Comment: Speci men Type: BLOOD SPECIMEN Ordering Facility: [facility] Address: [address] [place] [address] Performed By: #### 5 8410-2 #### [facility] CLIA [id number] [place] [address] [place] MCHC (RBC) [Mass/Vol] 33.8 g/dL Normal 30.5-36.0 [facility] Comment on above: Order Comment: Speci men Type: BLOOD SPECIMEN Ordering Facility: [facility] Address: [address] Performed By: #### 5 8410-2 #### [facility] CLIA [id number] [place] [address] [place] MCV (RBC) [Entitic vol] 91.0 fL Normal 80.0-100.0 [facility] Comment on above: Order Comment: Speci men Type: BLOOD SPECIMEN Ordering Facility: [facility] Address: [address] [address] Performed By: #### 5 8410-2 #### [facility] CLIA [id number] [place] [address] [place] Nucleated RBC (Bld) [#/Vol] 10*3/uL Normal <0.01 [facility] Comment on above: Order Comment: Speci men Type: BLOOD SPECIMEN Ordering Facility: [facility] Address: [address] Performed By: #### 5 8410-2 #### [facility] CLIA [id number] [place] [address] [place] Platelet mean volume (Bld) [Entitic vol] 10.3 fL Normal 9.0-12.7 [facility] Comment on above: Order Comment: Speci men Type: BLOOD SPECIMEN Ordering Facility: [facility] Address: [address] Performed By: #### 5 8410-2 #### [facility] CLIA [id number] [place] [address] [place] Platelets (Bld) [#/Vol] 206 10*3/uL Normal 150-400 [facility] Comment on above: Order Comment: Speci men Type: BLOOD SPECIMEN Ordering Facility: [facility] Address: [address] [address] Performed By: #### 5 8410-2 #### [facility] CLIA [id number] [address] [place] RBC (Bld) [#/Vol] 4.45 10*6/uL Normal 3.90-5.20 [facility] Comment on above: Order Comment: Speci men Type: BLOOD SPECIMEN Ordering Facility: [facility] Address: [address] [address] Performed By: #### 5 8410-2 #### [facility] CLIA [id number] [address] [place] WBC (Bld) [#/Vol] 4.66 10*3/uL Normal 3.70-11.00 [facility] Comment on above: Order Comment: Speci men Type: BLOOD SPECIMEN Ordering Facility: [facility] Address: [address] [address] Performed By: #### 5 8410-2 #### [facility] CLIA [id number] [place] [address] [place] Erythrocyte distribution width (RBC) [Ratio] 13.0 % 11.5 - 15.0 % [facility] Hematocrit (Bld) [Volume fraction] 40.5 % 36.0 - 46.0 % [facility] Hemoglobin (Bld) [Mass/Vol] 13.7 g/dL 11.5 - 15.5 g/dL [facility] MCH (RBC) [Entitic mass] 30.8 pg 26.0 - 34.0 pg [facility] MCHC (RBC) [Mass/Vol] 33.8 g/dL 30.5 - 36.0 g/dL [facility] MCV (RBC) [Entitic vol] 91.0 fL 80.0 - 100.0 fL [facility] Nucleated RBC (Bld) [#/Vol] <0.01 k/uL [facility] Platelet mean volume (Bld) [Entitic vol] 10.3 fL 9.0 - 12.7 fL [facility] Platelets (Bld) [#/Vol] 206 10*3/uL 150 - 400 k/uL [facility] RBC (Bld) [#/Vol] 4.45 10*6/uL 3.90 - 5.2 0 m/uL [facility] WBC (Bld) [#/Vol] 4.66 10*3/uL 3.70 - 11.00 k/uL [facility] Comprehensive metabolic 2000 panelon 07-08-2022 Albumin [Mass/Vol] 4.8 g/dL Normal 3.9-4.9 [facility] Comment on above: Order Comment: Speci men Type: BLOOD SPECIMEN Ordering Facility: [facility] Address: [address] [address] Performed By: #### 2 4323-8 #### [facility] CLIA [id number] [place] [address] [place] ALP [Catalytic activity/Vol] 93 U/L Normal 34-123 [facility] Comment on above: Order Comment: Speci men Type: BLOOD SPECIMEN Ordering Facility: [facility] Address: [address] [address] Performed By: #### 2 4323-8 #### [facility] CLIA [id number] [place] [address] [place] ALT [Catalytic activity/Vol] 16 U/L Normal 7-38 [facility] Comment on above: Order Comment: Speci men Type: BLOOD SPECIMEN Ordering Facility: [facility] Address: [address] [address] Performed By: #### 2 4323-8 #### [facility] CLIA [id number] [place] [address] [place] Anion gap [Moles/Vol] 10 mmol/L Normal 9-18 [facility] Comment on above: Order Comment: Speci men Type: BLOOD SPECIMEN Ordering Facility: [facility] Address: [address] [address] Performed By: #### 2 4323-8 #### [facility] CLIA [id number] [place] [address] [place] AST [Catalytic activity/Vol] 18 U/L Normal 13-35 [facility] Comment on above: Order Comment: Speci men Type: BLOOD SPECIMEN Ordering Facility: [facility] Address: [address] [address] Performed By: #### 2 4323-8 #### [facility] CLIA [id number] [place] [address] [place] Bilirubin [Mass/Vol] 0.3 mg/dL Normal 0.2-1.3 [facility] Comment on above: Order Comment: Speci men Type: BLOOD SPECIMEN Ordering Facility: [facility] Address: [address] [place] [address] Performed By: #### 2 4323-8 #### [facility] CLIA [id number] [place] [address] [place] Calcium [Mass/Vol] 9.6 mg/dL Normal 8.5-10.2 [facility] Comment on above: Order Comment: Speci men Type: BLOOD SPECIMEN Ordering Facility: [facility] Address: [address] [place] [address] Performed By: #### 2 4323-8 #### [facility] CLIA [id number] [place] [address] [place] Chloride [Moles/Vol] 102 mmol/L Normal 97-105 [facility] Comment on above: Order Comment: Speci men Type: BLOOD SPECIMEN Ordering Facility: [facility] Address: [address] [address] Performed By: #### 2 4323-8 #### [facility] CLIA [id number] [place] [address] [place] CO2 [Moles/Vol] 29 mmol/L Normal 22-30 [facility] Comment on above: Order Comment: Speci men Type: BLOOD SPECIMEN Ordering Facility: [facility] Address: [address] [address] Performed By: #### 2 4323-8 #### [facility] CLIA [id number] [place] [address] [place] Creatinine [Mass/Vol] 0.57 mg/dL Low 0.58-0.96 [facility] Comment on above: Order Comment: Meeta kamara Type: BLOOD SPECIMEN Ordering Facility: [facility] Address: [address] [address] Performed By: #### 2 4323-8 #### [facility] CLIA [id number] [place] [address] [place] ESTIMATED GLOMERULAR FILTRATION RATE 109 mL/min/1.73m??? Normal >=60 [facility] Comment on above: Order Comment: Meeta kamara Type: BLOOD SPECIMEN Ordering Facility: [facility] Address: [address] [place] [address] Result Comment: Subha mated Glomerular Filtration Rate (eGFR) is calculated using the 2020 CKD-EPI creatinine equation. This equation utilizes serum creatinine, sex, and age as parameters. The creatinine assay has traceable calibration to isotope dilution-mass spectrometry. Refer to KDIGO guidelines for clinical interpretation. In patients with unstable renal function, e.g. those with acute kidney injury, the eGFR may not accurately reflect actual GFR. Performed By: #### 2 4323-8 #### [facility] CLIA [id number] [place] [address] [place] Glucose [Mass/Vol] 109 mg/dL High 74-99 [facility] Comment on above: Order Comment: Meeta kamara Type: BLOOD SPECIMEN Ordering Facility: [facility] Address: [address] [place] [address] Result Comment: The [place] [employer] (ADA) provides guidance for cutoff values for fasting glucose and random glucose. The ADA defines fasting as no caloric intake for at least 8 hours. Fasting plasma glucose results between 100 to 125 mg/dL indicate increased risk for diabetes (prediabetes). Fasting plasma glucose results greater than or equal to 126 mg/dL meet the criteria for diagnosis of diabetes. In the absence of unequivocal hyperglycemia, results should be confirmed by repeat testing. In a patient with classic symptoms of hyperglycemia or hyperglycemic crisis, random plasma glucose results greater than or equal to 200 mg/dL meet the criteria for diagnosis of diabetes. Reference: Standards of Medical Care in Diabetes 2016, [place] [employer] Association. Diabetes Care. 2016.39(Suppl 1). Performed By: #### 2 4323-8 #### [facility] CLIA [id number] [place] [address] [place] Potassium [Moles/Vol] 3.8 mmol/L Normal 3.7-5.1 [facility] Comment on above: Order Comment: Speci men Type: BLOOD SPECIMEN Ordering Facility: [facility] Address: [address] [place] [address] Performed By: #### 2 4323-8 #### [facility] CLIA [id number] [place] [address] [place] Protein [Mass/Vol] 7.7 g/dL Normal 6.3-8.0 [facility] Comment on above: Order Comment: Speci men Type: BLOOD SPECIMEN Ordering Facility: [facility] Address: [address] [address] Performed By: #### 2 4323-8 #### [facility] CLIA [id number] [place] [address] [place] Sodium [Moles/Vol] 141 mmol/L Normal 136-144 [facility] Comment on above: Order Comment: Speci men Type: BLOOD SPECIMEN Ordering Facility: [facility] Address: [address] [address] Performed By: #### 2 4323-8 #### [facility] CLIA [id number] [place] [address] [place] Urea nitrogen [Mass/Vol] 16 mg/dL Normal 7-21 [facility] Comment on above: Order Comment: Speci men Type: BLOOD SPECIMEN Ordering Facility: [facility] Address: [address] [address] Performed By: #### 2 4323-8 #### [facility] CLIA [id number] [place] [address] [place] [facility] Albumin [Mass/Vol] 4.8 g/dL 3.9 - 4.9 g/dL [facility] ALP [Catalytic activity/Vol] 93 U/L 34 - 123 U/L [facility] ALT [Catalytic activity/Vol] 16 U/L 7 - 38 U/L [facility] Anion gap [Moles/Vol] 10 mmol/L 9 - 18 mmol/L [facility] AST [Catalytic activity/Vol] 18 U/L 13 - 35 U/L [facility] Bilirubin [Mass/Vol] 0.3 mg/dL 0.2 - 1.3 mg/dL [facility] Calcium [Mass/Vol] 9.6 mg/dL 8.5 - 10. 2 mg/dL [facility] Chloride [Moles/Vol] 102 mmol/L 97 - 105 mmol/L [facility] CO2 [Moles/Vol] 29 mmol/L 22 - 30 mmol/L [facility] Creatinine [Mass/Vol] 0.57 mg/dL Low 0.58 - 0.96 mg/dL [facility] Estimated Glomerular Filtration Rate 109 mL/min/1.73m >=60 mL/min/1.73 m [facility] Glucose [Mass/Vol] 109 mg/dL High 74 - 99 mg/dL [facility] Potassium [Moles/Vol] 3.8 mmol/L 3.7 - 5.1 mmol/L [facility] Protein [Mass/Vol] 7.7 g/dL 6.3 - 8.0 g/dL [facility] Sodium [Moles/Vol] 141 mmol/L 136 - 144 mmol/L [facility] Urea nitrogen [Mass/Vol] 16 mg/dL 7 - 21 mg/dL [facility] ESR Westergren method (Bld) [Velocity]on 07-08-2022 ESR (Bld) [Velocity] 10 mm/h 0 - 20 mm/hr [facility] ESR (Bld) [Velocity] 10 mm/h Normal 0-20 [facility] Comment on above: Order Comment: Speci men Type: BLOOD SPECIMEN Ordering Facility: [facility] Address: [address] [place] [id number] Performed By: #### 4 537-7 #### [facility] CLIA [id number] [address] [place] [address] [place] GLIADIN (DEAMIDATED) AB, IGA on 07-08-2022 GLIAD DEAMIDATED IGA QUAL Negative Normal Negative, Test not Indicated [facility] Comment on above: Order Comment: Speci men Type: BLOOD SPECIMEN Ordering Facility: [facility] Address: [address] [address] Result Comment: This is used as an aid in diagnosis of celiac disease. Clinical correlation is required. The following results were obtained with an [employer] QUANTA Lite Gliadin IgA TOM Gliadin. Gliadin IgA values obtained with different manufacturers' assay methods may not be used interchangeably. The magnitude of the reported IgA levels cannot be correlated to an endpoint titer. Performed By: #### 3 1017-7MARISELA GLIIGG #### [facility] CLIA [id number] [address] [place] [address] [place] Gliadin peptide IgA Qn (S) 4 Units Normal <20 [facility] Comment on above: Order Comment: Speci men Type: BLOOD SPECIMEN Ordering Facility: [facility] Address: [address] [place] [address] Performed By: #### 3 1017-7MARISELA GLIIGG #### [facility] CLIA [id number] [address] [place] [address] [place] GLIADIN (DEAMIDATED) AB, IGG on 07-08-2022 GLIAD DEAMIDATED IGG QUAL Negative Normal Negative, Test not Indicated [facility] Comment on above: Order Comment: Speci men Type: BLOOD SPECIMEN Ordering Facility: [facility] Address: [address] [address] Result Comment: This test is used as an aid in diagnosis of celiac disease in IgA-deficient individuals only. Clinical correlation is required. The following results were obtained with an [employer] QUANTA Lite Gliadin IgG TOM Gliadin. Gliadin IgG values obtained with different manufacturers' assay methods may not be used interchangeably. The magnitude of the reported IgG levels cannot be correlated to an endpoint titer. Performed By: #### 3 1017-7, GARTH ANTONIO #### [facility] CLIA [id number] [address] [place] [address] OF [facility] Gliadin peptide IgG Qn (S) 2 Units Normal <20 [facility] Comment on above: Order Comment: Speci men Type: BLOOD SPECIMEN Ordering Facility: [facility] Address: [address] [place] [address] Performed By: #### 3 1017-7, GARTH ANTONIO #### [facility] CLIA [id number] [address] [place] [address] [place] IGA BLDon 07-08-2022 IgA [Mass/Vol] 327 mg/dL 70 - 400 mg/dL [facility] IgA SerPl-mCncon 07-08-2022 IgA [Mass/Vol] 327 mg/dL Normal 70-400 [facility] Comment on above: Order Comment: Speci men Type: BLOOD SPECIMEN Ordering Facility: [facility] Address: [address] [place] [address] Performed By: #### 2 458-8 #### [facility] CLIA [id number] [address] [place] [address] OF [place] XR ABD 2V SUPINE W UPR/DECUB /CTLon 07-08-2022 XR ABD 2V SUPINE W UPR/DECUB/CTL * * *Final Report* * * DATE OF EXAM: Jul 08 2022 3:18PM SPX [id number] - XR ABD 2V SUPINE W UPR/DECUB/CTL / PROCEDURE REASON: multiple diagnoses * * * * Physician Interpretation * * * * RESULT: EXAM:XR ABD 2V SUPINE W UPR/DECUB/CTL HISTORY: Diarrhea, unspecified type Other constipation COMPARISON:None IMPRESSION:Bowel gas pattern is nonspecific and nonobstructive. There is moderate amount of stool in the right hemicolon. Small calcification in the mid left abdomen probably represents a renal stone. There are multiple pelvic phleboliths. There are degenerative changes in the lower thoracic and lumbar spine. Visualized lung bases are clear. Transcribed Using Voice Recognition Transcribe Date/Time: Jul 08 2022 3:49P Dictated by: JESSICA CARLISLE MD This examination was interpreted and the report reviewed and electronically signed by: JESSICA CARLISLE MD on Jul 08 2022 3:51PM EST [id number] Normal [facility] XR ABDOMEN 2V ROUTINE SUPINE W UPRIGHT/DECUB/CTLon 07-08-2022 [facility] tTG IgA Qn (S)on 07-08-2022 TRANSGLUTAMINASE IGA QUAL Negative Normal Negative, Test not Indicated [facility] Comment on above: Order Comment: Speci men Type: BLOOD SPECIMEN Ordering Facility: [facility] Address: [address] [place] [address] Result Comment: The following results were obtained with the Hybrid LogicA Lite h-tTG IgA TOM. h-tTG IgA values obtained with different manufacturers' assay methods may not be used interchangeable. The magnitude of the reported IgA levels cannot be correlated to an endpoint titer. This is used as an aid in diagnosis of celiac disease. Clinical correlation is required. Performed By: #### 3 1017-7MARISELA GLIIGG #### [facility] CLIA [id number] [address] [place] [address] [place] tTG IgA Ser-aCncon 3 tTG IgA Qn (S) 8 Units Normal <20 [facility] Comment on above: Order Comment: Specaviva kamara Type: BLOOD SPECIMEN Ordering Facility: [facility] Address: [address] [address] Performed By: #### 3 1017-7MARISELA GLIIGG #### [facility] CLIA [id number] [address] [place] [address] [place] XR CHEST 2 Von 05-14-2022 XR CHEST 2 V EXAMINATION: XR CHES T 2 V HISTORY: Chronic cough COMPARISON: XR chest 03/15/2022 FINDINGS: LUNGS: No significant pulmonary parenchymal abnormalities. VASCULATURE: No increased pulmonary vasculature. PLEURA: No pneumothorax, effusion, or pleural thickening. CARDIAC: No cardiomegaly or cardiac silhouette abnormality. MEDIASTINUM: No visible mass or adenopathy. BONES: No fracture or visible bone lesion. OTHER: Negative. IMPRESSION: 1. No acute cardiopulmonary process. Electronically authenticated by: ANAND MATUTE Date: 2022-05-14 16:01 Normal [facility] US PELVISon 05-13-2022 US PELVIS EXAMINATION: US PELV IS HISTORY: Cyst of right ovary COMPARISON: No relevant comparison available. FINDINGS: The uterus is anteverted. Uterus is normal in size, contour and echotexture measuring 7.9 x 5.8 x 4.2 cm. No focal myometrial mass The endometrium measures 11.5 mm. The ovaries are not visualized Limited exam due to patient body habitus. The patient refused transvaginal imaging IMPRESSION: Limited exam. The ovaries are not visualized The endometrium measures 11.5 mm. Normal for premenopausal, thickened for postmenopausal Electronically authenticated by: ALEJANDRO HOOK Date: 2022-05-13 19:25 Normal [facility] AMYLASEon 03-15-2022 Amylase [Catalytic activity/Vol] 45 U/L Normal 25-115 [facility] Comment on above: Performed By: #### H STROPN, LIPA, BRIA, CMP ####[facility] [address] [address]Dr. Soledad Farmer CBC AUTO DIFFon 03-15-2022 BASO # 0.0 103/ul Normal 0.0-0.1 [facility] Comment on above: Performed By: #### C BC #### [facility] [address] [address] [address] Soledad Farmer Basophils/100 WBC (Bld) 0.3 % Normal 0.2-2.0 [facility] Comment on above: Performed By: #### C BC #### [facility] [address] [address] [address] Soledad Farmer EO # 0.1 103/ul Normal 0.0-0.7 [facility] Comment on above: Performed By: #### C BC #### [facility] [address] [address] [address] Soledad Farmer Eosinophils/100 WBC (Bld) 0.5 % Critically low 0.9-7.0 [facility] Comment on above: Performed By: #### C BC #### [facility] [address] [address] [address] Soledad Farmer Erythrocyte distribution width (RBC) [Ratio] 13.1 % Normal 11.0-15.0 [facility] Comment on above: Performed By: #### C BC #### [facility] [address] [place] [address] Dr. Soledad Farmer Hematocrit (Bld) [Volume fraction] 41.5 % Normal 36.0-48.0 [facility] Comment on above: Performed By: #### C BC #### [facility] [address] [place] [address] Dr. Soledad Farmer Hemoglobin (Bld) [Mass/Vol] 14.3 g/dL Normal 12.0-16.0 [facility] Comment on above: Performed By: #### C BC #### [facility] [address] [place] [address] Dr. Soledad Farmer IG # 0.04 10e3/ul Critically high 0.00-0.03 [facility] Comment on above: Performed By: #### C BC #### [facility] [address] [place] [address] Dr. Soledad Farmer IG % 0.3 % Normal 0.0-0.5 [facility] Comment on above: Performed By: #### C BC #### [facility] [address] [place] [address] Dr. Soledad Farmer LYMPH # 0.4 103/ul Critically low 1.2-3.8 [facility] Comment on above: Performed By: #### C BC #### [facility] [address] [place] [address] Dr. Sloedad Farmer Lymphocytes/100 WBC (Bld) 3.4 % Critically low 20.5-60.0 [facility] Comment on above: Performed By: #### C BC #### [facility] [address] [place] [address] Dr. Soledad Farmer MANUAL DIFF REQ NO Normal [facility] Comment on above: Performed By: #### C BC #### [facility] [address] [place] [address] Dr. Soledad Farmer MCH (RBC) [Entitic mass] 30.6 pg Normal 26.7-34.0 [facility] Comment on above: Performed By: #### C BC #### [facility] [address] [place] [address] Dr. Soledad Farmer MCHC (RBC) [Mass/Vol] 34.5 g/dL Normal 29.9-35.2 [facility] Comment on above: Performed By: #### C BC #### [facility] [address] [place] [address] Dr. Soledad Farmer MCV (RBC) [Entitic vol] 88.7 fL Normal 81.0-99.0 [facility] Comment on above: Performed By: #### C BC #### [facility] [address] [place] [address] Dr. Soledad Farmer MONO # 0.4 103/ul Normal 0.3-0.8 [facility] Comment on above: Performed By: #### C BC #### [facility] [address] [place] [address] Dr. Soledad Farmer Monocytes/100 WBC (Bld) 3.0 % Normal 1.7-12.0 [facility] Comment on above: Performed By: #### C BC #### [facility] [address] [place] [address] Dr. Soledad Farmer NEUT # 11.4 103/ul Critically high 1.4-6.5 [facility] Comment on above: Performed By: #### C BC #### [facility] [address] [place] [address] Dr. Soledad Farmer Neutrophils/100 WBC (Bld) 92.5 % Critically high 43.0-75.0 [facility] Comment on above: Performed By: #### C BC #### [facility] [address] [place] [address] Dr. Soldead Farmer Platelet mean volume (Bld) [Entitic vol] 10.5 fL Normal 9.5-13.5 [facility] Comment on above: Performed By: #### C BC #### [facility] [address] [place], [place] [address] Dr. Soledad Farmer PLT 179 103/ul Normal 150-450 [facility] Comment on above: Performed By: #### C BC #### [facility] [address] [place], [place] [address] Dr. Soledad Farmer RBC 4.68 106/ul Normal 4.20-5.40 [facility] Comment on above: Performed By: #### C BC #### [facility] [address] [place], [place] [address] Dr. Soledad Farmer WBC 12.4 103/ul Critically high 4.0-11.0 [facility] Comment on above: Performed By: #### C BC #### [facility] [address] [place], [place] [address] ABD/PELV W CONon 03-15-20 CT ABD/PELV W CON CT ABD/PELV W CON: 03/15/2022 1:59 AM EDT CLINICAL HISTORY: 52 years old Female with ABDOMINAL DISTENSION (GASEOUS). TECHNIQUE: Axial CT images through the abdomen and pelvis are obtained after the intravenous administration of contrast. Coronal and sagittal reformations are also obtained. Dose reduction techniques were achieved by using automated exposure control and/or adjustment of mA and/or kV according to patient size and/or use of iterative reconstruction technique. COMPARISON: Abdominal ultrasound 02/18/2022. FINDINGS: The lung bases are clear with no dependent infiltrate or effusion. The liver, gallbladder, spleen, pancreas and bilateral adrenal glands are unremarkable. Splenic calcifications are present compatible with remote granulomatous process. The bilateral kidneys demonstrate normal enhancement without hydronephrosis. Subcentimeter likely cyst of the lower pole of the left kidney. Nonobstructing calculus at the lower pole of the left kidney measures 5 mm. The bilateral ureters demonstrate no gross abnormality or obstruction. The stomach and small bowel are unremarkable. The appendix is not clearly delineated; however no pericecal inflammatory changes evident. The colon is unremarkable. The bladder appears unremarkable. There is no evidence of aortic aneurysm present. No enlarged lymph nodes are seen. No free air or free fluid is seen. Right ovarian cyst measures 3.6 x 4.4 x 5.4 cm. The uterus is grossly unremarkable. Multilevel discogenic degenerative change throughout the spine is present with numerous lumbar spine with vacuum disc phenomenon and disc osteophytes. No acute compression fracture deformity or suspicious osseous abnormality. IMPRESSION: 1. No acute intra-abdominal inflammatory process identified. 2. 5 mm nonobstructing left lower pole renal calculus. 3. Ovarian cyst measures 5.4 cm. Electronically authenticated by: DAVE CARRERA Date: 2022-03-15 03:31 Normal [facility] ER URINE PROFILEon 2 Bilirubin Ql (U) Negative Normal NEGATIVE [facility] Comment on above: Performed By: #### E RUR ####[facility] [address] [place], [place] [address]Dr. Veritolan Farmer Clarity (U) CLEAR Normal CLEAR [facility] Comment on above: Performed By: #### E RUR ####[facility] [address] [place], [place] [address]Dr. Veritolan Farmer Color (U) LT. YELLOW Normal YELLOW [facility] Comment on above: Performed By: #### E RUR ####[facility] [address] [place], [place] [address]Dr. Soledad Farmer ERUAHD A micrscopic examina tion will be performed if indicated. Normal [facility] Comment on above: Performed By: #### E RUR ####[facility] [address] [place], [place] [address]Dr. Veritolan Farmer Glucose Ql (U) Negative Normal NEGATIVE [facility] Comment on above: Performed By: #### E RUR ####[facility] [address] [place], [place] [address]Dr. Yilan Farmer Hemoglobin Ql (U) Negative Normal NEGATIVE [facility] Comment on above: Performed By: #### E RUR ####[facility] [address] [place], [place] [address]Dr. Veritolan Farmer Ketones Ql (U) TRACE Abnormal NEGATIVE [facility] Comment on above: Performed By: #### E RUR ####[facility] [address] [place], [place] [address]Dr. Yilan Farmer LEUKOCYTES Negative Normal NEGATIVE [facility] Comment on above: Performed By: #### E RUR ####[facility] [address] [address]Dr. Soledad Farmer Nitrite Ql (U) Negative Normal NEGATIVE [facility] Comment on above: Performed By: #### E RUR ####[facility] [address] [address]Dr. Soledad Farmer pH (U) 8.0 [pH] Normal 5-9 [facility] Comment on above: Performed By: #### E RUR ####[facility] [address] [address]Dr. Soledad Farmer SPEC GRAVITY 1.010 Normal 1.005-<=1.0 25 [facility] Comment on above: Performed By: #### E RUR ####[facility] [address] [place], [place] [address]Dr. Soledad Farmer UA PROTEIN Negative Normal NEGATIVE/ TRACE [facility] Comment on above: Performed By: #### E RUR ####[facility] [address] [place], [place] [address]Dr. Soledad Farmer UR MICRO IND NOT INDICATED Normal [facility] Comment on above: Performed By: #### E RUR ####[facility] [address] [place], [place] [address]Dr. Soledad Farmer Urobilinogen Qn (U) 0.2 {Jerel'U}/dL Normal 0.2 - 1. 0 [facility] Comment on above: Performed By: #### E RUR ####[facility] [address] [place], [place] [address]Dr. Soledad Farmer LIPASEon 03-15-2022 Lipase [Catalytic activity/Vol] 98.0 U/L Normal 73.0-393.0 [facility] Comment on above: Performed By: #### H STROPN, LIPA, BRIA, CMP ####[facility] [address] [address]Dr. Soledad Farmer PROF 14(COMP METB)on 022 Albumin [Mass/Vol] 4.4 g/dL Normal 3.4-5.0 [facility] Comment on above: Performed By: #### H STROPN, LIPA, BRIA, CMP ####[facility] [address] [address]Dr. Soledad Farmer Albumin/Globulin [Mass ratio] 1.1 {ratio} Normal [facility] Comment on above: Performed By: #### H STROPN, LIPA, BRIA, CMP ####[facility] [address] [address]Dr. Soledad Farmer ALP [Catalytic activity/Vol] 95 U/L Normal 46-116 [facility] Comment on above: Performed By: #### H STROPN, LIPA, BRIA, CMP ####[facility] [address] [address]Dr. Soledad Farmer ALT [Catalytic activity/Vol] 23 U/L Normal 14-59 [facility] Comment on above: Performed By: #### H STROPN, LIPA, BRIA, CMP ####[facility] [address] [place], [place] [address]Dr. Soledad Farmer Anion gap [Moles/Vol] 14.1 mmol/L Normal [facility] Comment on above: Performed By: #### H STROPN, LIPA, BRIA, CMP ####[facility] [address] [address]Dr. Soledad Farmer AST [Catalytic activity/Vol] 21 U/L Normal 15-37 [facility] Comment on above: Performed By: #### H STROPN, LIPA, BRIA, CMP ####[facility] [address] [address]Dr. Soledad Farmer Bilirubin [Mass/Vol] 0.7 mg/dL Normal 0.2-1.0 [facility] Comment on above: Performed By: #### H STROPN, LIPA, BRIA, CMP ####[facility] [address] [address]Dr. Soledad Farmer Calcium [Mass/Vol] 9.4 mg/dL Normal 8.5-10.1 [facility] Comment on above: Performed By: #### H STROPN, LIPA, BRIA, CMP ####[facility] [address] [place] [address]Dr. Soledad Farmer Chloride [Moles/Vol] 100 mmol/L Normal 98-107 [facility] Comment on above: Performed By: #### H STROPN, LIPA, BRIA, CMP ####[facility] [address] [place] [address]Dr. Soledad Farmer CO2 [Moles/Vol] 23.4 mmol/L Normal 21.0-32.0 [facility] Comment on above: Performed By: #### H STROPN, LIPA, BRIA, CMP ####[facility] [address] [place], [place] [address]Dr. Soledad Farmer Creatinine [Mass/Vol] 0.87 mg/dL Normal 0.55-1.02 [facility] Comment on above: Performed By: #### H STROPN, LIPA, BRIA, CMP ####[facility] Pptsbix[address] [place], [place] [address]Dr. Soledad Farmer EGFR-AF MOZAMBICAN >60 Normal >=60 [facility] Comment on above: Performed By: #### H STROPN, LIPA, BRIA, CMP ####[facility] [address] [place], [place] [address]Dr. Soledad Farmer EGFR-NON AF MOZAMBICAN >60 Normal >=60 [facility] Comment on above: Performed By: #### H STROPN, LIPA, BRIA, CMP ####[facility] [address] [place] [address]Dr. Soledad Farmer Globulin (S) [Mass/Vol] 3.9 g/dL Normal [facility] Comment on above: Performed By: #### H STROPN, LIPA, BRIA, CMP ####[facility] [address] [place], [place] [address]Dr. Soledad Farmer Glucose [Mass/Vol] 152 mg/dL Critically high 74-106 [facility] Comment on above: Performed By: #### H STROPN, LIPA, BRIA, CMP ####[facility] Qimpi[address]pts[address] [place] [address]Dr. Soledad Farmer Potassium [Moles/Vol] 3.5 mmol/L Normal 3.5-5.1 [facility] Comment on above: Performed By: #### H STROPN, LIPA, BRIA, CMP ####[facility] Hkglmdusgf[address] [place] [address]Dr. Soledad Farmer Protein [Mass/Vol] 8.3 g/dL Critically high 6.4-8.2 [facility] Comment on above: Performed By: #### H STROPN, LIPA, BRIA, CMP ####[facility] [address] [place] [address]Dr. Soledad Farmer Sodium [Moles/Vol] 134 mmol/L Critically low 136-145 [facility] Comment on above: Performed By: #### H STROPN, LIPA, BRIA, CMP ####[facility] [address] [place] [address]Dr. Soledad Farmer Urea nitrogen [Mass/Vol] 16.0 mg/dL Normal 7.0-18.0 [facility] Comment on above: Performed By: #### H STROPN, LIPA, BRIA, CMP ####[facility] Z[address]vhimpeg[address] [place] [address]Dr. Soledad Farmer Urea nitrogen/Creatinine [Mass ratio] 18.4 mg/mg Normal [facility] Comment on above: Performed By: #### H STROPN, LIPA, BRIA, CMP ####[facility] [address] [place] [address]Dr. Soledad Farmer TROPONIN, HIGH SENSITIVITYon 03-15-2022 HSTROP 7.7 pg/mL Normal 4.0-51.3 [facility] Comment on above: Result Comment: CUT- OFF POINTS HAVE BEEN ESTABLISHED BASED ON THE FOURTH UNIVERSAL DEFINITIONS OF MYOCARDIAL INFARCTION. THE UPPER REFERENCE LIMIT (URL) OF TROPONIN, DEFINED THE 99TH PERCENTILE OF cTnI DISTRIBUTION IN A REFERENCE POPULATION, HAS BEEN CONFIRMED THE DECISION THRESHOLD FOR CT DIAGNOSIS. Performed By: #### H STROPN, LIPA, BRIA, CMP ####[facility] [address] [place] [id number] Farmer XR CHEST 1 Von 03-15-2022 XR CHEST 1 V EXAM: XR CHEST 1 V HISTORY: CHEST PAIN, UNSPECIFIED COMPARISON: 09/11/2021 TECHNIQUE: Chest single view. FINDINGS: Lines/tubes: EKG leads and other extrinsic structures over the chest. Cardiomediastinum: Heart size is normal. Unremarkable mediastinal silhouette. Lungs/pleura: No consolidation, sizeable effusion, or visible pneumothorax. Vasculature: Normal. Bones/soft tissues: Bony thorax appears grossly intact with mild degenerative changes of the spine. IMPRESSION: No acute cardiopulmonary process. Electronically authenticated by: SOLOMON ALVAREZ Date: 2022-03-15 02:46 Normal [facility] US SINGLE QUAD RT UPPERon US SINGLE QUAD RT UPPER EXAMINATION: US SINGLE QUAD RT UPPER HISTORY: Abdominal pain COMPARISON: No relevant comparison available. TECHNIQUE: Transabdominal evaluation of the right upper quadrant. FINDINGS: LIVER: Normal size and echotexture. Color Doppler demonstrates patent hepatic veins. PORTAL VEIN: Duplex Doppler demonstrates normal hepatopetal flow pattern with flow velocity averaging 39 cm/s. GALLBLADDER: No visible gallstones, wall thickening, or pericholecystic free fluid. Positive sonographic Jeffries's sign. BILIARY: No abnormal dilation or stones. Common bile duct diameter is within normal limits. PANCREASE: No visible mass, abnormal atrophy, or duct dilation. KIDNEY: No hydronephrosis. No visible mass or stones. Size: 12.2 x 3.7 x 4.9 cm IMPRESSION: 1. Positive sonographic Jeffries's sign with patient describing tenderness while imaging over the gallbladder. 2. No appreciable ultrasound abnormality of the gallbladder or in this region. Electronically authenticated by: ANAND MATUTE Date: 2022-02-18 16:32 Normal [facility] HCG,Qualitative Serumon 12-21 HCG,Qualitative Serum Negative Normal [facility] Comment on above: Result Comment: PERF ORMED BY: [place] [id number] PATHOLOGIST DISC SANDER TASHI SNYDER M.D. Performed By: #### H CGQUAL #### [address] 2022 L ------ Specimen: [id number] Received: 01/01/22 Status: ANGELINE Villegas Num: [id number] Spec Type: Surgical Subm Dr: Alejandro Guerrero Jr, Tissues: A Stomach - Biopsy/Polyp (STOMACH) Procedures: HE Stain/2, Gross/Micro L4 Patient Age/Sex Location Account Attending Physician Yadira Jeffrey 52/F [id number] Alejandro Guerrero Jr, SPEC NUM: [id number] RECD: 01/01/22 STATUS: ANGELINE VILLEGAS NUM: [id number] NILE: 01/01/22 THOMAS ZAMORA: Alejandro Guerrero Jr, DO ENTERED: 01/01/[address] [facility] [address]: SPEC TYPE: Surgical DEPT: S ENTERED BY: [id number] RECV BY: [id number] ORDERED: HE Stain/2, Gross/Micro L4 ORDERED: HE Stain/2, Gross/Micro L4 Pathological Diagnosis Stomach, biopsy: - Moderate chronic active gastritis with surface epithelial erosion - Many H. pylori microorganisms identified Clinical Information GERD/epi pain/dyspepsia; gastritis Gross Description Received in 10% neutral buffered formalin, labeled with the patient's name, number and stomach biopsy for gastritis are three fragments of soft tissue averaging 0.2 cm. Entirely submitted in one cassette labeled A1. (LG/) Microscopic Description Two glass slides with H E stained material have been examined. The microscopic findings support the above pathologic diagnosis. Immunohistochemical stain for H. pylori, with appropriate controls, has been requested and examined after reviewing the H E sections. Many H. pylori microorganisms are identified. [id number], [id number] The use of one or more reagents in the above tests is regulated as an analyte specific reagent (ASR). The performance characteristics were determined by the Laboratory of [facility]. Immunohistochemistry assays have not been validated on Specimen: [id number] Received: 01/01/22 Status: ANGELINE Villegas Num: [id number] Spec Type: Surgical Subm Dr: Alejandro Guerrero Jr, DO Tissues: A Stomach - Biopsy/Polyp (STOMACH) Procedures: HE Stain/2, Gross/Micro L4 Patient: Yadira Jeffrey [id number] (Continued) Specimen: [id number] Received: 01/01/22 (Continued) Microscopic Description (Continued) Signed (signature on file) Tashi Snyder MD 01/02/22 1711 Specimen: [id number] Received: 01/01/22 Status: ANGELINE Villegas Num: [id number] Spec Type: Surgical Subm Dr: Alejandro Guerrero Jr, DO Tissues: A Stomach - Biopsy/Polyp (STOMACH) Procedures: ANGELICA Stain/2, Gross/Micro L4 Patient: Yadira Jeffrey [id number] (Continued) Specimen: [id number] Received: 01/01/22 (Continued) Microscopic Description (Continued) decalcified tissue. Results should be interpreted with caution given the possibility of false negative results on decalcified specimens. They have not been cleared by the [place] Food and Drug Administration. The FDA has determined that such clearance or approval is not necessary. Specimen: [id number] Received: 01/01/22 Status: ANGELINE Devon Num: [id number] Spec Type: Surgical Subm Dr: Alejandro Guerrero Jr, DO Tissues: A Stomach - Biopsy/Polyp (STOMACH) Procedures: HE Stain/2, Gross/Micro L4 Patient: Yadira Jeffrey [id number] (Continued) Signed (signature on file) Tashi Snyder MD 01/02/22 1711 Normal [facility] COVID-19 [facility] SARS-CoV-2 (COVID-19) RNA MANUEL+probe Ql (Unsp spec) Negative Normal Negative [facility] Comment on above: Order Comment: Healt hcare Worker?: N Result Comment: Testing for SARS-CoV-2 by RT-PCR This test was developed and its performance characteristics determined by [employer]) and validated at the [facility]. This test has not been FDA cleared or approved. This test has been authorized by FDA under an Emergency Use Authorization (EUA). This test has been validated in accordance with the FDA's Guidance Document (Policy for Diagnostics Testing in Laboratories Certified to Perform High Complexity Testing under CLIA prior to Emergency Use Authorization for Coronavirus Disease-2019 during the Public Health Emergency) issued on September 23, 2019. This test is only authorized for the duration of time the declaration that circumstances exist justifying the authorization of the emergency use of in vitro diagnostic tests for detection of SARS-CoV-2 virus and/or diagnosis of COVID-19 infection under section 564(b)(1) of the Act, 21 U.S.C. 360bbb-3(b)(1), unless the authorization is terminated or revoked sooner. PERFORMED BY: [facility] [address] [place] [address] PATHOLOGIST DISC SANDER TASHI SNYDER M.D. Performed By: #### C OVID 19 [facility] #### [facility] [address] CARDIAC KALLIE ADMITon 022 CK [Catalytic activity/Vol] 104 U/L Normal 26-192 [facility] Comment on above: Performed By: #### C MP, CMADM, LIPA ####[facility] [address] [place] [id number]. Soledad Farmer CK.MB [Mass/Vol] 1.15 ng/mL Normal <=3.60 [facility] Comment on above: Performed By: #### C MP, CMADM, LIPA ####[facility] [address] [place] [address]Dr. Soledad Farmer HSTROP 9.3 pg/mL Normal 4.0-51.3 [facility] Comment on above: Result Comment: CUT- OFF POINTS HAVE BEEN ESTABLISHED BASED ON THE FOURTH UNIVERSAL DEFINITIONS OF MYOCARDIAL INFARCTION. THE UPPER REFERENCE LIMIT (URL) OF TROPONIN, DEFINED THE 99TH PERCENTILE OF cTnI DISTRIBUTION IN A REFERENCE POPULATION, HAS BEEN CONFIRMED THE DECISION THRESHOLD FOR CT DIAGNOSIS. Performed By: #### C MP, CMADM, LIPA ####[facility] [address] [place] [address]Dr. Soledad Farmer MIKE 41 ng/mL Normal 9-82 [facility] Comment on above: Performed By: #### C MP, CMADM, LIPA ####[facility] [address] [place] [address]Dr. Soledad Farmer CBC AUTO DIFFon 12-08-2021 BASO # 0.0 103/ul Normal 0.0-0.1 [facility] Comment on above: Performed By: #### C BC #### [facility] [address] [place] [address] Dr. Soledad Farmer Basophils/100 WBC (Bld) 0.3 % Normal 0.2-2.0 [facility] Comment on above: Performed By: #### C BC #### [facility] [address] [place] [address] [address] Soledad Farmer EO # 0.0 103/ul Normal 0.0-0.7 [facility] Comment on above: Performed By: #### C BC #### [facility] [address] [place] [address] Dr. Soledad Farmer Eosinophils/100 WBC (Bld) 0.2 % Critically low 0.9-7.0 [facility] Comment on above: Performed By: #### C BC #### [facility] [address] [place] [address] [address] Soledad Farmer Erythrocyte distribution width (RBC) [Ratio] 13.3 % Normal 11.0-15.0 [facility] Comment on above: Performed By: #### C BC #### [facility] [address] [place] [address] [address] Soledad Farmer Hematocrit (Bld) [Volume fraction] 41.8 % Normal 36.0-48.0 [facility] Comment on above: Performed By: #### C BC #### [facility] [address] [place] [address] [address] Soledad Farmer Hemoglobin (Bld) [Mass/Vol] 14.2 g/dL Normal 12.0-16.0 [facility] Comment on above: Performed By: #### C BC #### [facility] [address] [place] [address] Dr. Soledad Farmer IG # 0.09 10e3/ul Critically high 0.00-0.03 [facility] Comment on above: Performed By: #### C BC #### [facility] [address] [place] [address] [address] Soledad Farmer IG % 0.7 % Critically high 0.0-0.5 [facility] Comment on above: Performed By: #### C BC #### [facility] [address] [place] [address] [address] Soledad Farmer LYMPH # 0.3 103/ul Critically low 1.2-3.8 [facility] Comment on above: Performed By: #### C BC #### [facility] [address] [place] [address] [address] Soledad Farmer Lymphocytes/100 WBC (Bld) 2.4 % Critically low 20.5-60.0 [facility] Comment on above: Performed By: #### C BC #### [facility] [address] [place] [address] [address] Soledad Farmer MANUAL DIFF REQ NO Normal [facility] Comment on above: Performed By: #### C BC #### [facility] [address] [place] [address] Dr. Soledad Farmer MCH (RBC) [Entitic mass] 30.3 pg Normal 26.7-34.0 [facility] Comment on above: Performed By: #### C BC #### [facility] [address] [place] [address] Dr. Soledad Farmer MCHC (RBC) [Mass/Vol] 34.0 g/dL Normal 29.9-35.2 [facility] Comment on above: Performed By: #### C BC #### [facility] [address] [place] [address] Dr. Soledad Farmer MCV (RBC) [Entitic vol] 89.1 fL Normal 81.0-99.0 [facility] Comment on above: Performed By: #### C BC #### [facility] [address] [place] [address] Dr. Soledad Farmer MONO # 0.3 103/ul Normal 0.3-0.8 [facility] Comment on above: Performed By: #### C BC #### [facility] [address] [place] [address] Dr. Soledad Farmer Monocytes/100 WBC (Bld) 2.4 % Normal 1.7-12.0 [facility] Comment on above: Performed By: #### C BC #### [facility] [address] [place] [address] Dr. Soledad Farmer NEUT # 11.8 103/ul Critically high 1.4-6.5 [facility] Comment on above: Performed By: #### C BC #### [facility] [address] [place] [address] Dr. Soledad Farmer Neutrophils/100 WBC (Bld) 94.0 % Critically high 43.0-75.0 [facility] Comment on above: Performed By: #### C BC #### [facility] [address] [place] [address] Dr. Soledad Farmer Platelet mean volume (Bld) [Entitic vol] 10.1 fL Normal 9.5-13.5 [facility] Comment on above: Performed By: #### C BC #### [facility] [address] [place] [address] [address] Soledad Farmer PLT 166 103/ul Normal 150-450 [facility] Comment on above: Performed By: #### C BC #### [facility] [address] [place] [address] [address] Soledad Farmer RBC 4.69 106/ul Normal 4.20-5.40 [facility] Comment on above: Performed By: #### C BC #### [facility] [address] [place] [address] [address] Soledad Farmer WBC 12.5 103/ul Critically high 4.0-11.0 [facility] Comment on above: Performed By: #### C BC #### [facility] [address] [place] [address] [address] Soledad Farmer LIPASEon 12-08-2021 Lipase [Catalytic activity/Vol] 89.0 U/L Normal 73.0-393.0 [facility] Comment on above: Performed By: #### C MP, CMADM, LIPA ####[facility] [address] [place] [address]Dr. Soledad Farmer PROF 14(COMP METB)on 022 Albumin [Mass/Vol] 4.3 g/dL Normal 3.4-5.0 [facility] Comment on above: Performed By: #### C MP, CMADM, LIPA ####[facility] [address] [place] [address]Dr. Soledad Farmer Albumin/Globulin [Mass ratio] 1.1 {ratio} Normal [facility] Comment on above: Performed By: #### C MP, CMADM, LIPA ####[facility] [address] [place] [address]Dr. Soledad Farmer ALP [Catalytic activity/Vol] 84 U/L Normal 46-116 [facility] Comment on above: Performed By: #### C MP, CMADM, LIPA ####[facility] [address] [place] [address]Dr. Soledad Farmer ALT [Catalytic activity/Vol] 29 U/L Normal 14-59 [facility] Comment on above: Performed By: #### C MP, CMADM, LIPA ####[facility] [address] [place] [address]Dr. Soledad Farmer Anion gap [Moles/Vol] 15.5 mmol/L Normal [facility] Comment on above: Performed By: #### C MP, CMADM, LIPA ####[facility] [address] [place] [address]Dr. Soledad Farmer AST [Catalytic activity/Vol] 15 U/L Normal 15-37 [facility] Comment on above: Performed By: #### C MP, CMADM, LIPA ####[facility] [address]wr[address] [place] [address]Dr. Soledad Farmer Bilirubin [Mass/Vol] 1.0 mg/dL Normal 0.2-1.0 [facility] Comment on above: Performed By: #### C MP, CMADM, LIPA ####[facility] [address] [place] [address]Dr. Soledad Farmer Calcium [Mass/Vol] 9.4 mg/dL Normal 8.5-10.1 [facility] Comment on above: Performed By: #### C MP, CMADM, LIPA ####[facility] [address] [place] [address]Dr. Soledad Farmer Chloride [Moles/Vol] 99 mmol/L Normal 98-107 [facility] Comment on above: Performed By: #### C MP, CMADM, LIPA ####[facility] Xsxtxf[address]so[address] [place] [address]Dr. Soledad Farmer CO2 [Moles/Vol] 26.1 mmol/L Normal 21.0-32.0 [facility] Comment on above: Performed By: #### C MP, CMADM, LIPA ####[facility] [address] [place] [address]Dr. Soledad Farmer Creatinine [Mass/Vol] 0.82 mg/dL Normal 0.55-1.02 [facility] Comment on above: Performed By: #### C MP, CMADM, LIPA ####[facility] [address] [place] [address]Dr. Soledad Farmer EGFR-AF MOZAMBICAN >60 Normal >=60 [facility] Comment on above: Performed By: #### C MP, CMADM, LIPA ####[facility] [address] [place] [address]Dr. Soledad Farmer EGFR-NON AF MOZAMBICAN >60 Normal >=60 [facility] Comment on above: Performed By: #### C MP, CMADM, LIPA ####[facility] [address] [place] [address]Dr. Soledad Farmer Globulin (S) [Mass/Vol] 3.8 g/dL Normal [facility] Comment on above: Performed By: #### C MP, CMADM, LIPA ####[facility] [address] [place] [address]Dr. Soledad Farmer Glucose [Mass/Vol] 130 mg/dL Critically high 74-106 [facility] Comment on above: Performed By: #### C MP, CMADM, LIPA ####[facility] Qscglbfill[address] [place] [address]Dr. Soledad Farmer Potassium [Moles/Vol] 3.6 mmol/L Normal 3.5-5.1 [facility] Comment on above: Performed By: #### C MP, CMADM, LIPA ####[facility] [address]fej[address] [place] [address]Dr. Soledad Farmer Protein [Mass/Vol] 8.1 g/dL Normal 6.4-8.2 [facility] Comment on above: Performed By: #### C MP, CMADM, LIPA ####[facility] [address] [place] [address]Dr. Soledad Farmer Sodium [Moles/Vol] 137 mmol/L Normal 136-145 [facility] Comment on above: Performed By: #### C MP, CMADM, LIPA ####[facility] [address] [place] [address]Dr. Soledad Farmer Urea nitrogen [Mass/Vol] 17.0 mg/dL Normal 7.0-18.0 [facility] Comment on above: Performed By: #### C BRYCE SNOW LIPA ####[facility] [address] [place], [place] [address]Ea. Soledad Farmer Urea nitrogen/Creatinine [Mass ratio] 20.7 mg/mg Normal [facility] Comment on above: Performed By: #### C BRYCE SNOW, LIPA ####[facility] [address] [place], [place] [address]Df. Soledad Farmer XR ABD FLAT UP_PA Leticia 12-08 XR ABD FLAT UP_PA CH EXAM: XR ABD FLAT UP_PA CH HISTORY: CHEST PAIN, UNSPECIFIED epigastric and umbilical pain. Nausea and vomiting. COMPARISON: Chest x-ray 11/11/2021. TECHNIQUE: AP chest x-ray with upright and supine abdominal x-rays. FINDINGS: Cardiac size appears unchanged. Trachea is midline. No mediastinal widening. Lungs appear clear. No pneumothorax or effusion is identified. Moderate stool is seen throughout the course of the colon. No dilated air-filled small or large bowel loops identified to suggest obstruction. No intraperitoneal free air is identified. 5 mm calcification overlies the inferior pole of the left kidney suggesting a nonobstructing stone. Multiple pelvic phleboliths are seen. Osseous structures appear intact. IMPRESSION: 1. No bowel obstruction. No intraperitoneal free air. 2. Nonobstructing left renal stone. 3. No acute cardiopulmonary process is identified. Electronically authenticated by: RUDI MORENO Date: 2021-12-08 07:07 Normal [facility] HCG,Qualitative Serumon 01-21 HCG,Qualitative Serum Negative Normal [facility] Comment on above: Result Comment: PERF ORMED BY: [place] [address] PATHOLOGIST DISC SANDER TASHI SNYDER M.D. Performed By: #### H CGQUAL #### [place] [id number] [facility] 02-01-2021 L ------ Specimen: [id number] Received: 02/01/21 Status: ANGELINE Villegas Num: [id number] Spec Type: Surgical Subm Dr: Alejandro Guerrero Jr, DO Tissues: A Colon - Polyp (POLYP DESCENDING) Procedures: HE Stain/2, Gross/Micro L4 Patient Age/Sex Location Account Attending Physician Yadira Jeffrey 51/F [id number] Alejandro Guerrero Jr, DO SPEC NUM: [id number] RECD: 02/01/21 STATUS: ANGELINE VILLEGAS NUM: [id number] NILE: 02/01/21-[address]: Alejandro Guerrero Jr, DO ENTERED: 02/01/21120 SIGRID ZAMORA: SPEC TYPE: Surgical DEPT: S ORDERED: HE Stain/2, Gross/Micro L4 ORDERED: HE Stain/2, Gross/Micro L4 Pathological Diagnosis Descending colon polyp, polypectomy: - Tubular adenoma. Clinical Information Rectal bleeding Gross Description Received in a container filled with formalin, labeled with patient's name, number and descending colon polyp is a fragment of pink-sidhu mucosa tissue measuring 0.2 x 0.2 x 0.2 cm, entirely submitted in one cassette labeled A1. Microscopic Description Two glass slides with H E stained material have been examined. The microscopic findings support the above pathologic diagnosis. CPT Codes 71202 Specimen: [id number] Received: 02/01/21 Status: ANGELINE Villegas Num: [id number] Spec Type: Surgical Subm Dr: Alejandro Guerrero Jr, DO Tissues: A Colon - Polyp (POLYP DESCENDING) Procedures: HE Stain/2, Gross/Micro L4 Patient: Yadira Jeffrey [id number] (Continued) Signed (signature on file) Wendy Phan MD 02/02/21 1112 [facility] Vital Signs Date Time Vital Sign Value Performing Clinician Faci lity 12-11-2022 08:26-0400 Body height 170.2 cm Sonja Riojas MD Work Phone: [facility] 12-11-2022 08:26-0400 Body temperature 97.7 [degF] Sonja Riojas MD Work Phone: [facility] 12-11-2022 08:26-0400 Body weight 135.17 kg Sonja Riojas MD Work Phone: [facility] 12-11-2022 08:26-0400 Diastolic blood pressure 51 mm[Hg] Sonja Riojas MD Work Phone: [facility] 12-11-2022 08:26-0400 Heart rate 61 /min Sonja Riojas MD Work Phone: [facility] 12-11-2022 08:26-0400 Respiratory rate 16 /min Sonja Riojas MD Work Phone: [facility] 12-11-2022 08:26-0400 SaO2% (BldA) [Mass fraction] 95 % Sonja Riojas MD Work Phone: [facility] 12-11-2022 08:26-0400 Systolic blood pressure 105 mm[Hg] Sonja Riojas MD Work Phone: [facility] 11-26-2022 11:25-0400 Body height 170.2 cm [facility] 11-26-2022 11:25-0400 Body weight 122.47 kg [facility] 11-26-2022 11:25-0400 Heart rate 60 /min [facility] 07-08-2022 11:51-0500 Body height 170.2 cm Alejandro Lim MD Work Phone: [facility] 07-08-2022 11:51-0500 Body weight 132.1 kg Alejandro Lim MD Work Phone: [facility] 07-08-2022 11:51-0500 Diastolic blood pressure 74 mm[Hg] Alejandro Lim MD Work Phone: [facility] 07-08-2022 11:51-0500 Heart rate 74 /min Alejandro Lim MD Work Phone: [facility] 07-08-2022 11:51-0500 Systolic blood pressure 139 mm[Hg] Alejandro Lim MD Work Phone: [facility] Encounters Encounter Date Encounter Type Care Provider Facility Start: 10-03-2023 ambulatory Alejandro Lim MD Work Phone: Gastroenterology Comment on above: Colonoscopy Start: 07-09-2023 End: 07-09-2023 ambulatory Flavio Galvan Jr Facility:[place] Start: 06-11-2023 End: 06-11-2023 [facility] Start: 06-03-2023 End: 06-03-2023 ambulatory SONJA RIOJAS Facility:[facility] Start: 02-04-2023 End: 02-04-2023 ambulatory ALEJANDRO LIM Facility:[place] Start: 02-04-2023 End: 02-04-2023 ambulatory Alejandro Lim MD Work Phone: Gastroenterology Comment on above: Personal history of colonic polyps (Primary Dx); Diarrhea, unspecified type; Obesity, morbid, BMI 40.0-49.9 ([facility]) Start: 02-04-2023 End: 02-04-2023 Telemedicine consultation with patient Alejandro Lim MD Work Phone: [facility] Start: 01-28-2023 Telephone encounter Holley Coppola APRN.CNP Work Phone: Gynecology Comment on above: Results Start: 01-27-2023 End: 01-27-2023 ambulatory SONJA RIOJAS Facility:[facility] Start: 01-27-2023 End: 01-27-2023 Subsequent hospital visit by physician Mri [facility] (Lg Bore/1.5t) Radiology MRI Comment on above: Cyst of ovary, unspe cified laterality [N83.209] Start: 12-16-2022 End: 12-16-2022 ambulatory SONJA RIOJAS Facility:[facility] Start: 12-16-2022 End: 12-16-2022 ambulatory oSnja Riojas MD Work Phone: Gynecology Oncology Comment on above: Cyst of ovary, unspe cified laterality (Primary Dx) Start: 12-16-2022 End: 12-16-2022 Telemedicine consultation with patient Sonja Riojas MD Work Phone: [facility] Start: 12-12-2022 End: 12-12-2022 Orders Only Sonja Riojas MD Work Phone: Gynecology Comment on above: Cervical cancer scre ening (Primary Dx) Other intra-abdomina l and pelvic swelling, mass and lump [R19.09] Canceled (Pt cx: Res cheduled) Start: 12-11-2022 End: 12-11-2022 ambulatory SONJA RIOJAS Facility:[facility] Start: 12-11-2022 End: 12-11-2022 ambulatory Sonja Riojas MD Work Phone: Gynecology Oncology Comment on above: Thickened endometriu m [R93.89 (ICD-10-CM)] (Primary Dx); Cervical cancer screening [Z12.4 (ICD-10-CM)]; Post-operative state [Z98.890 (ICD-10-CM)]; Obesity, morbid, BMI 40.0-49.9 (HCC) Start: 12-11-2022 End: 12-11-2022 Patient encounter procedure Sonja Riojas MD Work Phone: [facility] Start: 12-02-2022 Telephone encounter Sheela momin RN Gynecology Comment on above: Surgical Followup Start: 11-29-2022 End: 11-29-2022 ambulatory SONJA RODASBILLIE Facility:[facility] Start: 11-26-2022 End: 11-26-2022 ambulatory SONJA BUSCH NARAYANAviva Facility:[facility] Start: 11-26-2022 End: 11-26-2022 Admission to [facility] Start: 11-26-2022 End: 11-26-2022 ambulatory [facility] Pre Anesthesia Comment on above: Preop examination (P rimary Dx); Obstructive sleep apnea syndrome; Primary hypertension; Gastroesophageal reflux disease, unspecified whether esophagitis present; Mild intermittent asthma without complication; Obesity, morbid, BMI 40.0-49.9 (HCC); Hyperlipidemia, unspecified hyperlipidemia type; Chronic back pain, unspecified back location, unspecified back pain laterality Start: 11-26-2022 End: 11-26-2022 Preprocedural examination done [facility] Pre Anesthesia Start: 11-22-2022 Telephone encounter Corin marquis RN Gynecology Comment on above: Pre-Op Teaching (/) Start: 11-20-2022 End: 11-20-2022 ambulatory GILMAR TESFAYE Facility:[place] Start: 11-13-2022 End: 11-13-2022 ambulatory ALEJANDRO LIM Facility:[place] Start: 11-06-2022 End: 11-06-2022 ambulatory [facility] Facility:[facility] Start: 10-14-2022 Telephone encounter Alejandro Olmos MD Work Phone: Gastroenterology Comment on above: Orders Start: 09-05-2022 End: 09-06-[address] ANAND MATUTE Facility:[facility] Start: 08-28-2022 End: 08-28-2022 ambulatory Alejandro Lim MD Work Phone: Gastroenterology Comment on above: Change in bowel habi ts (Primary Dx); Diarrhea, unspecified type Start: 08-28-2022 End: 08-28-2022 Telemedicine consultation with patient Alejandro Lim MD Work Phone: [facility] Start: 08-21-2022 End: 08-22-2022 [facility] Start: 08-16-2022 Telephone encounter Alejandro Olmos MD Work Phone: Gastroenterology Comment on above: Results Start: 08-16-2022 End: 08-17-2022 ambulatory GILMAR ANGLIM Facility:[facility] Start: 07-30-2022 End: 07-30-2022 ambulatory ALEJANDRO LIM Facility:[place] Start: 07-30-2022 End: 07-30-2022 ambulatory Alejandro Lim MD Work Phone: Gastroenterology Comment on above: Change in bowel habi ts (Primary Dx) Start: 07-30-2022 End: 07-30-2022 Telemedicine consultation with patient Alejandro Lim MD Work Phone: [facility] Start: 07-08-2022 ambulatory ALEJANDRO LIM Facility: [facility] Start: 07-08-2022 End: 07-09-2022 ambulatory ALEJANDRO LIM Facility:[facility] Start: 07-08-2022 End: 07-08-2022 Patient encounter procedure Alejandro Lim MD Work Phone: Gastroenterology Comment on above: Diarrhea, unspecifie d type (Primary Dx); Other constipation Start: 05-13-2022 End: 05-14-2022 ambulatory GILMAR ANGLIM Facility:[facility] Start: 04-30-2022 [facility] Start: 03-15-2022 End: 03-15-2022 [facility] Start: 02-18-2022 End: 02-19-2022 [facility] Start: 12-08-2021 End: 12-08-2021 ambulatory [facility] Procedures Date Procedure Procedure Detail Performing Clinician Start: 01-27-2023 Mri abdomen w/o & w/contrast material Sonja Riojas MD Work Phone: Start: 12-12-2022 Mri pelvis w/o & w/contrast material Sonja Riojas MD Work Phone: Plan of Treatment Date Care Activity Detail Author Start: 11-30-2027 HPV TESTING HPV TESTING [facility] Start: 11-30-2027 PAP TESTING PAP TESTING [facility] Start: 11-30-2027 Screening for malign ant neoplasm of cervix [facility] Start: 11-20-2025 DIABETES SCREEN DIABETES SCREEN [facility] Start: 11-20-2025 Diabetes Screening Diabetes Screenin g [facility] Start: 07-08-2025 DIABETES SCREEN DIABETES SCREEN [facility] Start: 12-12-2023 BP CONTROLLED (<130/80) BP CONTROLLE D (<130/80) [facility] Start: 12-01-2023 Urine microalbumin profile DTa P,Tdap,Td Vaccine (2 - Td or Tdap) [facility] Start: 02-21-2023 Covid-19 Vaccine (2022- season) Covid-19 Vaccine (2022-) [facility] Start: 02-21-2023 Influenza vaccination C [facility] Start: 07-08-2022 End: 09-07-2022 CELIAC ASSOC HLA-DQ GENOTYPE [facility] Work Phone: Comment on above: Expected: 07/08/2022 , Expires: 09/07/2022 Start: 07-08-2022 End: 09-07-2022 GLIADIN (DEAMINATED) ABS [facility] Work Phone: Comment on above: Expected: 07/08/2022 , Expires: 09/07/2022 Start: 07-08-2022 End: 09-07-2022 Tissue transglutaminase IgA Ab [Units/volume] in Serum [facility] Work Phone: Comment on above: Expected: 07/08/2022 , Expires: 09/07/2022 Start: 06-23-2022 DEPRESSION ASSESSMENT DEPRESSION ASS ESSMENT [facility] Start: 2019 SHINGRIX VACCINE (1 of 2) CATHERINE GRIX VACCINE (1 of 2) [facility] Start: 06-05-2014 Hepatitis B Vaccine (3 of 3 - Hep B Twinrix 3-dose series) Hepatitis B Vaccine (3 of 3 - Hep B Twinrix 3-dose series) [facility] Start: 2014 COLOGUARD (FIT-DNA) COLOGUARD (FIT-D NA) [facility] Start: 2014 Colonoscopy COLONOSCOPY [facility] Start: 2014 COLORECTAL CANCER SCREENING COLORECTAL CANCER SCREENING [facility] Start: [address] COLONOGRAPHY [facility] Start: 2014 FECAL OCCULT BLOOD FECAL OCCULT BLOO D [facility] Start: 2014 Lipid 1996 panel - S julian or Plasma Lipid Screening [facility] Start: 2014 Lipid panel Lipid Screening [facility] Start: 2014 LIPID SCREEN LIPID SCREEN [facility] Start: 2014 Screening for malign ant neoplasm of colon [facility] Start: 2014 SIGMOIDOSCOPY SIGMOIDOSCOPY [facility] Start: 2009 Mammography [facility] Start: 2009 Screening for malign ant neoplasm of breast Mammogram Screening [facility] Start: 1999 HPV TESTING HPV TESTING [facility] Start: 1990 PAP TESTING PAP TESTING [facility] Start: 01-02-1988 Urine microalbumin profile DTAP,TDAP ,TD (1 - Tdap) [facility] Start: 1987 ANNUAL PCP TEAM PROPERTY CONDITION ASSESSOR JOSHUA DISEASE VISIT ANNUAL PCP TEAM CHRONIC DISEASE VISIT [facility] Start: 1987 BP CONTROLLED (<130/80) BP CONTROLLE D (<130/80) [facility] Start: 1987 HEPATITIS C SCREENING HEPATITIS C [facility] Start: 1987 Hepatitis C screening Hepatitis C [facility] Start: 1987 HIV SCREENING HIV SCREENING [facility] Start: 1987 HIV screening HIV Screening [facility] Start: 1987 SPIROMETRY SPIROMETRY [facility] Start: 1975 PNEUMOCOCCAL (1 - PCV) PNEUMOCOCCAL (1 - PCV) [facility] Start: 1975 Pneumococcal vaccination Pneum ococcal Vaccine (1 - PCV) [facility] Start: 1969 HEPATITIS B (1 of 3 - 3-dose series) HEPATITIS B (1 of 3 - 3-dose series) [facility] Calprotectin [Mass/m ass] in Stool CALPROTECTIN,FECAL Lab Routine Diarrhea, unspecified type Other constipation Ordered: 07/08/2022 [facility] Work Phone: Comment on above: Ordered: 07/08/2022 Clostridioides diffi cile toxin genes [Presence] in Stool by MANUEL with probe detection C. DIFFICILE PCR Lab Routine Diarrhea, unspecified type Other constipation Ordered: 07/08/2022 [facility] Work Phone: Comment on above: Ordered: 07/08/2022 End: 02-05-2024 COLONOSCOPY DIAGNOSTIC COLONOSCOPY DIAGNOSTIC Endoscopy Routine Personal history of colonic polyps Diarrhea, unspecified type 1 Occurrences starting 02/04/2023 until 02/05/2024 [facility] Work Phone: Comment on above: 1 Occurrences starti ng 02/04/2023 until 02/05/2024 End: 02-05-2024 EGD DIAGNOSTIC EGD DIAGNOSTIC Endoscopy Routine Diarrhea, unspecified type 1 Occurrences starting 02/04/2023 until 02/05/2024 [facility] Work Phone: Comment on above: 1 Occurrences starti ng 02/04/2023 until 02/05/2024 ENTERIC BACTERIAL PA MAICOL BY PCR ENTERIC BACTERIAL PANEL BY PCR Lab Routine Diarrhea, unspecified type Other constipation Ordered: 07/08/2022 [facility] Work Phone: Comment on above: Ordered: 07/08/2022 FAT, FECAL QUAL FAT, FECAL QUAL Lab Routine Diarrhea, unspecified type Other constipation Ordered: 07/08/2022 [facility] Work Phone: Comment on above: Ordered: 07/08/2022 FECAL LACTOFERRIN/LEUKOCYTES FECAL LACTOFERRIN/LEUKOCYTES Lab Routine Diarrhea, unspecified type Other constipation Ordered: 07/08/2022 [facility] Work Phone: Comment on above: Ordered: 07/08/2022 HPV W/GENOTYPE THIN PREP HPV W/G ENOTYPE THIN PREP Lab Routine Cervical cancer screening 11/29/2022 1:44 PM EDT [facility] Work Phone: Microorganism identi fied in Unspecified specimen by Culture AEROMONAS/PLESIOMONAS CULTURE Microbiology Routine Diarrhea, unspecified type Other constipation Ordered: 07/08/2022 [facility] Work Phone: Comment on above: Ordered: 07/08/2022 End: 01-15-2024 Mri pelvis w/o & w/contrast material MRI FEMALE PELVIS WO/W IVCON Radiology Routine Cyst of ovary, unspecified laterality 1 Occurrences starting 12/16/2022 until 01/15/2024 [facility] Work Phone: Comment on above: 1 Occurrences starti ng 12/16/2022 until 01/15/2024 End: 09-27-2023 Us abdominal real time w/image limited US ABD RT UPPER QUADRANT Radiology Routine Change in bowel habits 1 Occurrences starting 08/28/2022 until 09/27/2023 [facility] Work Phone: Comment on above: 1 Occurrences starti ng 08/28/2022 until 09/27/2023 [facility] Immunizations Immunization Date Immunization Notes Care Provider Jose Juan dominguez 05-02-2022 influenza virus vacc ine, unspecified formulation Mri Bore/1.5t) [facility] Payers Date Payer Category Payer Medicaid MEDICAID [facility] MEDICAID [id number] 2022-Present [phone] [address] [place] [address] Medicaid [id number] 2021 Medicare MEDICARE MEDICAR E A AND B [id number] 2021-Present [phone] [address] [address] [place] [address] Medicare [id number] 1969 Unknown [id number] 1969 Unknown [id number] 1969 Unknown [id number] 1969 Unknown [id number] 1969 Unknown [id number] 1969 Unknown [id number] 1969 Unknown [id number] 1969 Unknown [id number] 1969 Unknown [id number] 1960 Medicaid [id number] 1960 Medicare [id number] 1960 Self-pay Social History Date Type Detail [facility] smoking consumption unknown [facility] Start: 1970 Sex Assigned At Female C [facility] Start: 11-06-2022 Tobacco [facility] Never smoked tobacco [facility] Start: 11-06-2022 Tobacco use and exposure Smoke less tobacco non-user [facility] Start: 11-06-2022 End: 07-09-2023 Alcohol intake Ex-drinker (finding) [facility] Start: 11-06-2022 End: 11-26-2022 History of Social function [facility] Start: 11-06-2022 End: 11-26-2022 Tobacco use panel [facility] National Score (1-10 0), lower number is lower risk 92 [facility] Start: 07-08-2022 Gender identity Identifies as female gender (finding) [facility] Start: 07-08-2022 Sexual orientation Heterosexual (namrata cabello) [facility] Clinical Notes 07-08-2022 to 06-11-2023 Patient InstructionsLeAlejandro zuleta MD - 02/04/2023 10:30 AM EDTTelephone Encounter - Holley Coppola APRN.CNP - 01/28/2023 3:50 PM EDTCMonalisa aviles RN - 01/27/2023 9:20 AM EDTPatient Instructions Note Date & Type Note Facility 06-11-2023 Note HNO ID: [id number] Author: Sonja Riojas MD Service: ? Author Type: Physician Type: Progress Notes Filed: 06/11/2023 1:34 PM Note Text: DATE OF SERVICE: 06/11/2023 REASON FOR VISIT: Right ovarian cyst, MRI REVIEW DIAGNOSIS: Right ovarian cyst HISTORY OF PRESENT ILLNESS: Yadira Jeffrey is a 52 year old female with pmh of HTN, anxiety/depression, asthma, cervical stenosis os spine, GERD, PER[place] who presented for abdominal discomfort. CT A/P initially completed in 02/2022 demonstrated a right ovarian cyst and continued monitoring has shown slight increase in size. Pelvic US follow up completed in 04/2022 demonstrated a thickened endometrium and follow up MRI pelvis in 08/2022 demonstrated a 5.4 complex right ovarian lesion, suspected to represent a hemmorhagic cyst. Patient has declined a pelvic exam due to traumatic history. Presents to hospital social worker onc for further evaluation. Thickened endometrium on MRI without bleeding for 1.5y Not up to date on pap screening 11/29/2022 Surgery- EUA, colposcopy with cervical biopsies, [facility] FINAL DIAGNOSIS A. Endocervix, curettage: ---Benign endocervical glandular epithelium. B. Endometrium, curettage: ---Superficial strips of inactive endometrium. C. Cervix, at 12:00, biopsy: ---Benign transformation zone mucosa with marked acute and chronic inflammation. D. Cervix, at 9:00, biopsy: ---Benign transformation zone mucosa with marked acute and chronic inflammation. E. Cervix, at 3:00, biopsy: ---Benign transformation zone mucosa with marked acute and chronic inflammation. Ca 125 : 7 DATE OF LAST VISIT: 12/16/2022 OBSTETRIC/ GYNECOLOGY HISTORY: Last Pap: 11/29/2022- negative RECENT PATHOLOGY: 11/29/2022 FINAL DIAGNOSIS A. Endocervix, curettage: ---Benign endocervical glandular epithelium. B. Endometrium, curettage: ---Superficial strips of inactive endometrium. C. Cervix, at 12:00, biopsy: ---Benign transformation zone mucosa with marked acute and chronic inflammation. D. Cervix, at 9:00, biopsy: ---Benign transformation zone mucosa with marked acute and chronic inflammation. E. Cervix, at 3:00, biopsy: ---Benign transformation zone mucosa with marked acute and chronic inflammation. RECENT IMAGING: Date: 09/05/2022 MRI Pelvis Date: 08/16/2022 CT A/P Date: 05/13/22 Pelvic US Date: 03/15/2022 CT A/P 12/12/2022-MRI pelvis IMPRESSION: Stable 5.4 cm nonenhancing right ovarian cystic lesion with heterogeneous internal signal intensity, possibly related to hemorrhage (ORADS 3). No endometrial thickening. 12/12/2022 MRI Pelvis IMPRESSION: Stable 5.4 cm nonenhancing right ovarian cystic lesion with heterogeneous internal signal intensity, possibly related to hemorrhage (ORADS 3). No endometrial thickening. 01/27/2023 MRI Abdomen IMPRESSION: 1. No acute process. 2. Tiny 0.3 cm cystic lesion in the body of the pancreas, likely a tiny sidebranch IPMN. Recommend 1 year follow-up. 3. Common bile duct is minimally distended measuring up to 0.9 cm but tapers smoothly distally. No obvious filling defects or focal lesions. 06/03/2023 MRI Pelvis IMPRESSION: Stable 5.3 cm nonenhancing right ovarian lesion with some hemorrhagic component (O-RADS 3). HEALTH MAINTENANCE: Last mammogram: 16 years ago normal Last colonoscopy: scheduled fall 2022 ECOG performance status ECOG PERFORMANCE STATUS: 0- Fully active, able to carry on all pre-disease performance w/o restriction. SUBJECTIVE/INTERVAL HISTORY: Yadira Jeffrey reports that she feels well. Stable abdominal pain and diarrhea. No nausea. Some decreased appetite. No abnormal bleeding or any new symptoms since last visit. Has been following with GI for ongoing symptoms. Her ECOG performance status is zero (fully active, able to carry on all pre-disease performance without restriction). OBJECTIVE: VITALS: BP 132/75 Pulse 83 Temp (Src) 97.9 (Temporal) Resp 18 Ht 5' 7.008 (1.70m) Wt 308 lb 10.3 oz (140.0kg) SpO2 97% BMI 48.33 kg/(m2). GENERAL: alert, oriented, pleasant, and cooperative. HEENT: Normocephalic, atraumatic, and no lesions. ASSESSMENT: 52 year old y/o female anxiety, depression, HTN presenting for follow up of complex right ovarian cyst and thickened endometrium. Also following with GI for gallbladder abnormalities. Continues to care for her mother with cancer treatment and has been under a lot of stress. Complex right ovarian mass : unable to tolerate transvaginal probe or pelvic exams therefore the abdominal sono was limited. MRI 08/2022 shows 5.4 cm cyst, US shows 5.4cm cyst. MRI suggesting hemorrhagic cyst. Normal ca125 reviewed. Repeat MRI from 12/12/22 reviewed showing stable ovarian cyst and resolved thickened endometrium. 06/03/23 MRI reviewed- stable right ovarian cyst. Thickened endometrium on 08/2022 MRI - s/p DANDC with benign inactive endometrium, no further work up needed Not up to date on cer (more content not included)... [facility] 06-03-2023 Note HNO ID: [id number] Author: Monalisa Srivastava RN Service: Nursing Author Type: Registered Nurse Type: Progress Notes Filed: 06/03/2023 1:59 PM Note Text: Radiology Service Progress Note DATE OF SERVICE: June 03, 2023 TIME: 1:16 PM PATIENT WEIGHT: 298LBS PATIENT IDENTITY VERIFICATION COMPLETED USING TWO (2) STANDARD IDENTIFIERS: Name and Date of confirmed by patient verbally. FALL SCREENING: Has the patient had 2 falls in the last year or 1 fall with injury or currently using an Ambulatory Assistive Device (Walker, Cane, Wheelchair, Crutches, etc.)? No PATIENT GENDER DATA: Female. status: : No status: NO. ALLERGIES: Reviewed and unchanged CONTRAST ALLERGY: No EXAM: MRI - CONTRAST TYPE: GROUP II IV SITE: Ambulatory: A peripheral IV was started in the Right antecubital site with a Angio cath: 22 gauge. and A Saline lock was inserted per protocol IV SITE APPEARANCE: Clean,Dry and Intact SIGNATURE: Monalisa Srivastava RN PATIENT NAME: Yadira Jeffrey DATE: June 03, 2023 TIME: 1:16 PM [facility] 06-03-2023 Note HNO ID: [id number] Author: Reed Jacome RT(Na) Service: Radiology Author Type: Technologist Type: Progress Notes Filed: 06/03/2023 1:27 PM Note Text: Radiology Service Progress Note PATIENT NAME: Yadira Jeffrey DATE OF SERVICE: June 03, 2023 TIME: 1:26 PM PATIENT IDENTITY VERIFICATION COMPLETED USING TWO (2) IDENTIFIERS: Name and Date of confirmed by patient verbally and Name and Date of confirmed by identification band FALL SCREENING: Has the patient had 2 falls in the last year or 1 fall with injury or currently using an Ambulatory Assistive Device (Walker, Cane, Wheelchair, Crutches, etc.)? No PATIENT GENDER DATA: Female. status: : No status: N/A PATIENT RELEVANT IMPLANT DATA REVIEWED: Yes RADIOLOGY DEPARTMENT: MR; Exam(s) Completed: Body: Female Pelvis PERIPHERAL IV DATA: Site assessment: Clean,Dry and Intact, Site disposition Discontinued SIGNED BY: RT Shaq(Na) June 03, 2023 1:26 PM [facility] 02-04-2023 Note HNO ID: [id number] Author: Alejandro Lim MD Service: ? Author Type: Physician Type: Progress Notes Filed: 02/04/2023 11:08 PM Note Text: Follow Up Zoom Visit There were no vitals filed for this visit. VIRTUAL APPOINTMENT SCHEDULING REQUEST Patient Name: Yadira Jeffrey Follow up/Appointment time: 10:30 AM Provider Name: Alejandro Lim MD Encounter Level: Established I have communicated my name and active licensure. The patient's identity and physical location were verified at the time of this visit. Either the patient or their legal national account representative has been informed of the risks and benefits of -- and alternatives to -- treatment through a remote evaluation and consents to proceed with the evaluation remotely. Current Medications: Current Outpatient Medications Medication Sig Dispense Refill Surgical Lubricant Jelly gel For MRI Female Pelvis, MRI department to provide. Administer intra-vaginal Surgilube immediately prior the MRI procedure (total amount to patient toleranace). 5 g 0 oxyCODONE IR (ROXICODONE) 5 mg immediate release tablet Take 1 tablet by mouth every 6 hours as needed for pain. (Patient not taking: Reported on 12/11/2022) 5 tablet 0 acetaminophen (TYLENOL EXTRA STRENGTH) 500 mg tablet Take 2 tablets by mouth every 6 hours. 30 tablet 0 ibuprofen (MOTRIN) 600 mg tablet Take 1 tablet by mouth every 6 hours. 30 tablet 0 senna-docusate (SENNA WITH DOCUSATE SODIUM) 8.6-50 mg per tablet Take 1-2 tablets by mouth once daily. May increase or decrease as needed to have one soft bowel movement daily 30 tablet 0 famotidine (PEPCID) 20 mg tablet TAKE 1 TABLET BY MOUTH TWICE DAILY NEEDED FOR 30 DAYS gabapentin (NEURONTIN) 300 mg capsule TAKE 2 CAPSULES BY MOUTH AT BEDTIME FOR 30 DAYS loratadine 10 mg cap Take 10 mg by mouth. losartan (COZAAR) 25 mg tablet q 24 HR. montelukast (SINGULAIR) 10 mg tablet Take 10 mg by mouth once daily. rizatriptan (MAXALT) 10 mg tablet TAKE 1 TABLET BY MOUTH ONCE NEEDED FOR MIGRAINE. CAN REPEAT AFTER 2 HOURS IF NEEDED. STOP IMITREX tiZANidine (ZANAFLEX) 2 mg tablet Take 2 mg by mouth once daily as needed. aspirin, enteric coated (ASPIRIN, ENTERIC COATED) 81 mg EC tablet q 24 HR. albuterol HFA (PROVENTIL HFA, VENTOLIN HFA) 90 mcg/actuation inhaler albuterol sulfate HFA 90 mcg/actuation aerosol inhaler dicyclomine (BENTYL) 20 mg tablet atorvastatin (LIPITOR) 20 mg tablet atorvastatin 20 mg tablet TAKE 1 TABLET BY MOUTH ONCE DAILY No current facility-administered medications for this visit. Follow up regarding:Change in bowel habits improved Poorly defined thickening of the gallbladder wall per CT scan from 08/16/2022 Personal history of colon polyps Interval Events:MRI of the pancreas and biliary tree was remarkable for: IMPRESSION: 1. No acute process. 2. Tiny 0.3 cm cystic lesion in the body of the pancreas, likely a tiny sidebranch IPMN. Recommend 1 year follow-up. 3. Common bile duct is minimally distended measuring up to 0.9 cm but tapers smoothly distally. No obvious filling defects or focal lesions. ACTIONABLE RESULT: FOLLOW-UP Acuity: Actionable Findings: Pancreas/Biliary Routing Code: PB_1 Recommendation: MRI PANCREAS/BILIARY WO/W IV CONTRAST Time Frame: In one year. COMMUNICATION: Results will be communicated with the ordering provider via [employer] staff message or phone message by [facility] [employer] within 2 business days of report finalization. ===== Algorithms for management of incidental imaging findings can be found on the [facility] Intranet Sharepoint site at: [email or web address].org/documentatio [email or web address]%20Incid ental%20Findi ngs%20at%20Imaging/Forms/AllIte ms.aspx Tile Ditcher: LESLEY Transcribe Date/Time: Jan 27 2023 1:10P Dictated by : HERMILA TAY MD This examination was interpreted and the report reviewed and electronically signed by: HERMILA TAY MD on Jan 27 2023 1:28PM EST Results-Findings * * *Final Report* * * DATE OF EXAM: Jan 27 2023 10:58AM [facility] 0689 - MRI ABDOMEN WO/W IVCON / PROCEDURE REASON: Cyst of ovary, unspecified laterality * * * * Physician Interpretation * * * * MRI OF THE ABDOMEN WITHOUT AND WITH CONTRAST: CLINICAL HISTORY: Ovarian cyst, abdominal pain COMPARISON: None. TECHNIQUE: The study was performed on a Siemens 1.5 T Espree scanner using the torso phased array coil. HASTE images were obtained in the axial, sagittal and coronal planes. High resolution 3-D T2 weighted images were then obtained. Next, axial STIR, diffusion weighted and T1 weighted in- and [id number] images were obtained. Then, using a 3-D GRE T1 weighted sequence, dynamic images were obtained before, during and after the administration of intravenous contrast. 3-D images were post-processed on a dedicated off-line workstation and were reviewed by the interpreting physician. C (more content not included)... [facility] 02-04-2023 Instructions Alejandro Lim MD - 02/04/2023 11:13 AM EDT Images from the original note were not included. Bowel Preparation Instructions for: CLENPIQ IF YOU DO NOT FOLLOW THESE DIRECTIONS, YOUR COLONOSCOPY WILL BE CANCELLED. Quinn Instructions: Your bowel must be empty so that your doctor can clearly view your colon. Follow all of the instructions in this handout EXACTLY as they are written. Do NOT eat any solid food the ENTIRE day before your colonoscopy. Buy your bowel preparation at least 5 days before your colonoscopy. TRANSPORTATION on the Day of Your Exam A responsible adult MUST be present with you at Check In prior to your colonoscopy and REMAIN in the endoscopy area until you are discharged. You are NOT ALLOWED to drive, take a taxi or bus, or leave the Endoscopy Center ALONE. If you do not have a responsible road train driver (family member or friend) with you to take you home, your exam cannot be done with sedation and will be cancelled. Please bring a list of all of your current medications, including any Over-the Counter medications with you. Medications If you take insulin, diabetic medications or blood thinners such as Coumadin (warfarin), Plavix (clopidogrel), Ticlid (ticlopidine hydrochloride), Agrylin (anagrelide), Xarelto (Rivaroxaban), Pradaxa (Dabigatran), Eliquis (Apixaban), and Effient (Prasugrel). You MUST call the doctors who orders those medicines for instructions on altering the dosage before your colonoscopy. All other medications should be taken the day of the exam with a sip of water including ASPIRIN. Five (5) Days Before Your Colonoscopy Do NOT take medicines that stop diarrhea - such as Imodium, Kaopectate, or Pepto Bismol. Do NOT take fiber supplements - such as Metamucil, Citrucel, or Perdiem. Do NOT take products that contain iron - such as multi-vitamins (the label lists what is in the products). Three (3) Days Before Your Colonoscopy Do NOT eat high-fiber foods - such as popcorn, beans, seeds (flax, sunflower, quinoa), multigrain bread, nuts, salad/vegetables, or fresh and dried fruit. 05/2019 Bowel Preparation Instructions for: WALLACE One (1) Day Before Your Colonoscopy Only drink clear liquids the ENTIRE DAY before your colonoscopy. Do NOT eat any solid foods. Drink at least 8 ounces of clear liquids every hour after waking up. The clear liquids you can drink include: Clear Liquid (NO RED LIQUIDS) DO NOT DRINK Gatorade, Pedialyte or Powerade Clear broth or bouillon Coffee or tea (no milk or non-dairy creamer) Carbonated and non-carbonated soft drinks Gabriel-Aid or other fruit flavored drinks Strained fruit juices (no pulp) Jell-O, popsicles, hard candy Water Alcohol Milk or non-dairy creamers Noodles or vegetables in soup Juice with pulp Liquid you cannot see through Do not use tobacco/vaping products The bowel preparation solution will be consumed in two parts. Part 1 6 PM - Evening before your colonoscopy Drink one bottle of CLENPIQ. Over the next 5 hours, drink at least 5 cups (8 oz. Each) of clear liquid, at your own pace. You may continue to drink clear liquids until midnight. Part 2 4 1/2 hours before your colonoscopy Drink the bottle of CLENPIQ, then drink one cup (8 oz. Each) of clear liquid, every 15 minutes for at least 4 cups. You may continue to drink clear liquids up to (three) 3 hours before your exam. 2 05/2019 Bowel Preparation Instructions for: Golytely, Nulytely, Trilyte or Colyte (polyethylene glycol 3350 and electrolytes) IF YOU DO NOT FOLLOW THESE DIRECTIONS, YOUR COLONOSCOPY WILL BE CANCELLED. Quinn Instructions: Your bowel must be empty so that your doctor can clearly view your colon. Follow all of the instructions in this handout EXACTLY as they are written. Do NOT eat any solid food the ENTIRE day before your colonoscopy. Drink only clear liquids. Buy your bowel preparation at least 5 days before your colonoscopy. TRANSPORTATION on the Day of Your Exam A responsible person MUST be present with you at Check In prior to your colonoscopy and REMAIN in the endoscopy area until you are discharged. You are NOT ALLOWED to drive, take a taxi or bus, or leave the Endoscopy Center ALONE. If you do not have a responsible road train driver (family member or friend) with you to take you home, your exam cannot be done with sedation and will be cancelled. Please bring a list of all of your current medications, including any Over-the Counter medications with you. Medications If you take insulin, diabetic medications or blood thinners such as Coumadin (warfarin), Plavix (clopidogrel), Ticlid (ticlopidine hydrochloride), Agrylin (anagrelide), Xarelto (Rivaroxaban), Pradaxa (Dabigatran), Eliquis (Apixaban), and Effient (Prasugrel). You MUST call the doctors who orders those medicines for instructions on altering the dosage before your colonoscopy. All other medications should be taken the day of the exam with a sip of water including ASPIRIN. Five (5) Days Before Your Colonoscopy Do NOT take medicines that stop diarrhea - such as Imodium, Kaopectate, or Pepto Bismol. Do NOT take fiber supplements - such as Metamucil, Citrucel, or Perdiem. Do NOT take products that contain iron - such as multi-vitamins (the label lists what is in the products). Do NOT take Vitamin E. Buy the prescription bowel preparation solution at your local pharmacy or drugstore pharmacy. 05/2019 Bowel Preparation Instructions for: Golytely, Nulytely, Trilyte or Colyte (polyethylene glycol 3350 and electrolytes) Three (3) Days Before Your Colonoscopy Do NOT eat high-fiber foods - such as popcorn, beans, seeds (flax, sunflower, quinoa), multigrain bread, nuts, salad/vegetables, or fresh and dried fruit. One (1) Day Before Your Colonoscopy Only drink clear liquids the ENTIRE DAY before your colonoscopy. Do NOT eat any solid foods. Drink at least 8 ounces of clear liquids every hour after waking up. The clear liquids you can drink include: Clear Liquid (NO RED LIQUIDS) DO NOT DRINK Gatorade, Pedialyte or Powerade Clear broth or bouillon Coffee or tea (no milk or non-dairy creamer) Carbonated and non-carbonated soft drinks Gabriel-Aid or other fruit flavored drinks Strained fruit juices (no pulp) Jell-O, popsicles, hard candy Water Alcohol Milk or non-dairy creamers Noodles or vegetables in soup Juice with pulp Liquid you cannot see through Do not use tobacco/vaping products The bowel preparation solution will be consumed in two parts. Mix the solution the evening before your colonoscopy and refrigerate before drinking. You may add the flavor pack that came with the bowel preparation. Do NOT add ice, sugar or any other flavorings to the solution. Part 1 At 6:00 PM - Evening before your colonoscopy Drink an 8-oz glass of bowel preparation every 10 minutes for a total of 8 glasses. You may continue to drink clear liquids until midnight. Part 2 On the day of your colonoscopy you may drink clear liquids up to (three) 3 hours before your procedure. 4 1/2 hours before your colonoscopy Drink an 8-oz glass of bowel preparation every 10 minutes for a total of 8 glasses. Fifteen (15) minutes later, drink an 8-oz glass of clear liquids every 15 minutes for a total of 2 glasses. You may continue to drink clear liquids up to (three) 3 hours before your exam. 2 05/2019 Bowel Preparation Instructions for: WALLACE IF YOU DO NOT FOLLOW THESE DIRECTIONS, YOUR COLONOSCOPY WILL BE CANCELLED. Quinn Instructions: Your bowel must be empty so that your doctor can clearly view your colon. Follow all of the instructions in this handout EXACTLY as they are written. Do NOT eat any solid food the ENTIRE day before your colonoscopy. Buy your bowel preparation at least 5 days before your colonoscopy. TRANSPORTATION on the Day of Your Exam A responsible adult MUST be present with you at Check In prior to your colonoscopy and REMAIN in the endoscopy area until you are discharged. You are NOT ALLOWED to drive, take a taxi or bus, or leave the Endoscopy Center ALONE. If you do not have a responsible road train driver (family member or friend) with you to take you home, your exam cannot be done with sedation and will be cancelled. Please bring a list of all of your current medications, including any Over-the Counter medications with you. Medications If you take insulin, diabetic medications or blood thinners such as Coumadin (warfarin), Plavix (clopidogrel), Ticlid (ticlopidine hydrochloride), Agrylin (anagrelide), Xarelto (Rivaroxaban), Pradaxa (Dabigatran), Eliquis (Apixaban), and Effient (Prasugrel). You MUST call the doctors who orders those medicines for instructions on altering the dosage before your colonoscopy. All other medications should be taken the day of the exam with a sip of water including ASPIRIN. Five (5) Days Before Your Colonoscopy Do NOT take medicines that stop diarrhea - such as Imodium, Kaopectate, or Pepto Bismol. Do NOT take fiber supplements - such as Metamucil, Citrucel, or Perdiem. Do NOT take products that contain iron - such as multi-vitamins (the label lists what is in the products). Three (3) Days Before Your Colonoscopy Do NOT eat high-fiber foods - such as popcorn, beans, seeds (flax, sunflower, quinoa), multigrain bread, nuts, salad/vegetables, or fresh and dried fruit. 05/2019 Bowel Preparation Instructions for: CLENPIQ One (1) Day Before Your Colonoscopy Only drink clear liquids the ENTIRE DAY before your colonoscopy. Do NOT eat any solid foods. Drink at least 8 ounces of clear liquids every hour after waking up. The clear liquids you can drink include: Clear Liquid (NO RED LIQUIDS) DO NOT DRINK Gatorade, Pedialyte or Powerade Clear broth or bouillon Coffee or tea (no milk or non-dairy creamer) Carbonated and non-carbonated soft drinks Gabriel-Aid or other fruit flavored drinks Strained fruit juices (no pulp) Jell-O, popsicles, hard candy Water Alcohol Milk or non-dairy creamers Noodles or vegetables in soup Juice with pulp Liquid you cannot see through Do not use tobacco/vaping products The bowel preparation solution will be consumed in two parts. Part 1 6 PM - Evening before your colonoscopy Drink one bottle of CLENPIQ. Over the next 5 hours, drink at least 5 cups (8 oz. Each) of clear liquid, at your own pace. You may continue to drink clear liquids until midnight. Part 2 4 1/2 hours before your colonoscopy Drink the bottle of CLENPIQ, then drink one cup (8 oz. Each) of clear liquid, every 15 minutes for at least 4 cups. You may continue to drink clear liquids up to (three) 3 hours before your exam. 2 05/2019 documented in this encounter [facility] 02-04-2023 History of Present illness Narrative Follow Up Zoom Visit There were no vitals filed for this visit. VIRTUAL APPOINTMENT SCHEDULING REQUEST Patient Name: Yadira Jeffrey Follow up/Appointment time: 10:30 AM Provider Name: Alejandro Lim MD Encounter Level: Established I have communicated my name and active licensure. The patient's identity and physical location were verified at the time of this visit. Either the patient or their legal national account representative has been informed of the risks and benefits of -- and alternatives to -- treatment through a remote evaluation and consents to proceed with the evaluation remotely. Current Medications: Current Outpatient Medications Medication Sig Dispense Refill Surgical Lubricant Jelly gel For MRI Female Pelvis, MRI department to provide. Administer intra-vaginal Surgilube immediately prior the MRI procedure (total amount to patient toleranace). 5 g 0 oxyCODONE IR (ROXICODONE) 5 mg immediate release tablet Take 1 tablet by mouth every 6 hours as needed for pain. (Patient not taking: Reported on 12/11/2022) 5 tablet 0 acetaminophen (TYLENOL EXTRA STRENGTH) 500 mg tablet Take 2 tablets by mouth every 6 hours. 30 tablet 0 ibuprofen (MOTRIN) 600 mg tablet Take 1 tablet by mouth every 6 hours. 30 tablet 0 senna-docusate (SENNA WITH DOCUSATE SODIUM) 8.6-50 mg per tablet Take 1-2 tablets by mouth once daily. May increase or decrease as needed to have one soft bowel movement daily 30 tablet 0 famotidine (PEPCID) 20 mg tablet TAKE 1 TABLET BY MOUTH TWICE DAILY NEEDED FOR 30 DAYS gabapentin (NEURONTIN) 300 mg capsule TAKE 2 CAPSULES BY MOUTH AT BEDTIME FOR 30 DAYS loratadine 10 mg cap Take 10 mg by mouth. losartan (COZAAR) 25 mg tablet q 24 HR. montelukast (SINGULAIR) 10 mg tablet Take 10 mg by mouth once daily. rizatriptan (MAXALT) 10 mg tablet TAKE 1 TABLET BY MOUTH ONCE NEEDED FOR MIGRAINE. CAN REPEAT AFTER 2 HOURS IF NEEDED. STOP IMITREX tiZANidine (ZANAFLEX) 2 mg tablet Take 2 mg by mouth once daily as needed. aspirin, enteric coated (ASPIRIN, ENTERIC COATED) 81 mg EC tablet q 24 HR. albuterol HFA (PROVENTIL HFA, VENTOLIN HFA) 90 mcg/actuation inhaler albuterol sulfate HFA 90 mcg/actuation aerosol inhaler dicyclomine (BENTYL) 20 mg tablet atorvastatin (LIPITOR) 20 mg tablet atorvastatin 20 mg tablet TAKE 1 TABLET BY MOUTH ONCE DAILY No current facility-administered medications for this visit. Follow up regarding:Change in bowel habits improved Poorly defined thickening of the gallbladder wall per CT scan from 08/16/2022 Personal history of colon polyps Interval Events:MRI of the pancreas and biliary tree was remarkable for: IMPRESSION: 1. No acute process. 2. Tiny 0.3 cm cystic lesion in the body of the pancreas, likely a tiny sidebranch IPMN. Recommend 1 year follow-up. 3. Common bile duct is minimally distended measuring up to 0.9 cm but tapers smoothly distally. No obvious filling defects or focal lesions. ACTIONABLE RESULT: FOLLOW-UP Acuity: Actionable Findings: Pancreas/Biliary Routing Code: PB_1 Recommendation: MRI PANCREAS/BILIARY WO/W IV CONTRAST Time Frame: In one year. COMMUNICATION: Results will be communicated with the ordering provider via [employer] staff message or phone message by [facility] [employer] within 2 business days of report finalization. ===== Algorithms for management of incidental imaging findings can be found on the [facility] Intranet Sharepoint site at: [email or web address]/documentatio [email or web address] ental%20Findi ngs%20at%20Imaging/[email or web address] [email or web address] Tile Ditcher: LESLEY Transcribe Date/Time: Jan 27 2023 1:10P Dictated by : HERMILA TAY MD This examination was interpreted and the report reviewed and electronically signed by: HERMILA TAY MD on Jan 27 2023 1:28PM EST Results-Findings * * *Final Report* * * DATE OF EXAM: Jan 27 2023 10:58AM [facility] 0689 - MRI ABDOMEN WO/W IVCON / PROCEDURE REASON: Cyst of ovary, unspecified laterality * * * * Physician Interpretation * * * * MRI OF THE ABDOMEN WITHOUT AND WITH CONTRAST: CLINICAL HISTORY: Ovarian cyst, abdominal pain COMPARISON: None. TECHNIQUE: The study was performed on a Siemens 1.5 T Espree scanner using the torso phased array coil. HASTE images were obtained in the axial, sagittal and coronal planes. High resolution 3-D T2 weighted images were then obtained. Next, axial STIR, diffusion weighted and T1 weighted in- and [id number]-kfwqd images were obtained. Then, using a 3-D GRE T1 weighted sequence, dynamic images were obtained before, during and after the administration of intravenous contrast. 3-D images were post-processed on a dedicated off-line workstation and were reviewed by the interpreting physician. Contrast: IV: 20 ml of Dotarem Oral Contrast: None RESULT: Liver: The liver is normal in contour. Scattered arterial enhancing foci measuring up to 0.9 cm without underlying T2 abnormality. Fades to background on venous phase images and likely focal perfusion abnormalities. There are no focal hepatic lesions. Mild hepatic steatosis There is no thrombus in the portal venous system (splenic vein, main portal vein, left and right anterior and right posterior portal vein branches). Spleen - The spleen measures 12.0 cm in length, normal. There are no focal splenic masses. Pancreaticobiliary: There is no intrahepatic biliary dilation. Common bile duct is mildly distended measuring up to 0.9 cm. No filling defects are identified within the common bile duct. Smooth tapering distally. The gallbladder is normal in appearance. The pancreas has normal precontrast signal, enhances normally. Adjacent tiny cystic lesions in the pancreatic body measuring 0.3 cm (image 26, 9). The visualized portions of the pancreatic duct are normal. The adrenals are normal. Kidneys: The visualized portions of the kidneys enhance symmetrically. There is no hydroureteronephrosis. There is no focal enhancing renal lesion. Tiny cyst in the lower pole of the left kidney Other: There is no ascites. There are no abnormal fluid collections. There is no lymphadenopathy. Subjective: Patient is till having right sided abdominal pain and diarrhea. Patient with more diarrhea than constipation. At times the right sided pain is significant and then resolves. BM's seem to help the pain. The pain usually occurs when she feels the need to have a BM. Her KUB and upright performed in June, there was moderate significant amount of stool in the right hemicolon extending into the transverse colonoscopy. BM daily.Stool is scybalous when she says hat she has diarrhea.Trying to drink 64 ounces of water per day. She is eating brown rice and fruit. No fried foods. Mother with H/O colonoscopy cancer at age 89. Patient's last colonoscopy was performed 3-5 years ago and was remarkable for colon polyps. Objective: Deferred Impression: Right-sided abdominal pain-seems to be related to timing urge to have a bowel movement-improvement noted following a bowel movement Alternating diarrhea and constipation-currently patient is having more diarrhea than constipation Rule out 0.3 mm IPMN No evidence for any biliary tract disease per recent MRI of the anxious and biliary tree Plan: Repeat MRI of the pancreas and biliary tree in one year. Increase whole wheat in diet EGD/ Colonoscopy with MAC on [place] of [place] with Dr.Zuccaro CARY 02/26/2023 Visit length-30 minutes Alejandro Lim MD documented in this encounter [facility] 01-28-2023 Miscellaneous Notes Called Wendy regarding her MRI Abdomen results. Unable to leave a voicemail. Will send [employer] message and try again later. Holley Coppola APRN.CNP January 28, 2023 3:51 PM documented in this encounter [facility] 01-27-2023 Note HNO ID: [id number] Author: Monalisa Srivastava RN Service: Nursing Author Type: Registered Nurse Type: Progress Notes Filed: 01/27/2023 9:54 AM Note Text: Radiology Service Progress Note DATE OF SERVICE: January 27, 2023 TIME: 9:48 AM PATIENT WEIGHT: 298LBS PATIENT IDENTITY VERIFICATION COMPLETED USING TWO (2) STANDARD IDENTIFIERS: Name and Date of confirmed by patient verbally. FALL SCREENING: Has the patient had 2 falls in the last year or 1 fall with injury or currently using an Ambulatory Assistive Device (Walker, Cane, Wheelchair, Crutches, etc.)? No PATIENT GENDER DATA: Female. status: : No status: NO. ALLERGIES: Reviewed and unchanged CONTRAST ALLERGY: No EXAM: MRI - CONTRAST TYPE: GROUP II IV SITE: Ambulatory: A peripheral IV was started in the Left antecubital site with a Angio cath: 22 gauge. and A Saline lock was inserted per protocol IV SITE APPEARANCE: Clean,Dry and Intact SIGNATURE: Monalisa Srivastava RN PATIENT NAME: Yadira Jeffrey DATE: January 27, 2023 TIME: 9:48 AM [facility] 01-27-2023 Note HNO ID: [id number] Author: Reed Jacome RT(R) Service: Radiology Author Type: Technologist Type: Progress Notes Filed: 01/27/2023 10:20 AM Note Text: Radiology Service Progress Note PATIENT NAME: Yadira Jeffrey DATE OF SERVICE: January 27, 2023 TIME: 10:20 AM PATIENT IDENTITY VERIFICATION COMPLETED USING TWO (2) IDENTIFIERS: Name and Date of confirmed by patient verbally and Name and Date of confirmed by identification band FALL SCREENING: Has the patient had 2 falls in the last year or 1 fall with injury or currently using an Ambulatory Assistive Device (Walker, Cane, Wheelchair, Crutches, etc.)? No PATIENT GENDER DATA: Female. status: : No status: N/A PATIENT RELEVANT IMPLANT DATA REVIEWED: Yes RADIOLOGY DEPARTMENT: MR; Exam(s) Completed: Body: Pancreas/Biliary PERIPHERAL IV DATA: Site assessment: Clean,Dry and Intact, Site disposition Discontinued SIGNED BY: RT Shaq(R) January 27, 2023 10:20 AM [facility] 01-27-2023 History of Present illness Narrative Radiology Service Progress Note DATE OF SERVICE: January 27, 2023 TIME: 9:48 AM PATIENT WEIGHT: 298LBS PATIENT IDENTITY VERIFICATION COMPLETED USING TWO (2) STANDARD IDENTIFIERS: Name and Date of confirmed by patient verbally. FALL SCREENING: Has the patient had 2 falls in the last year or 1 fall with injury or currently using an Ambulatory Assistive Device (Walker, Cane, Wheelchair, Crutches, etc.)? No PATIENT GENDER DATA: Female. status: : No status: NO. ALLERGIES: Reviewed and unchanged CONTRAST ALLERGY: No EXAM: MRI - CONTRAST TYPE: GROUP II IV SITE: Ambulatory: A peripheral IV was started in the Left antecubital site with a Angio cath: 22 gauge. and A Saline lock was inserted per protocol IV SITE APPEARANCE: Clean,Dry and Intact SIGNATURE: Monalisa Srivastava RN PATIENT NAME: Yadira Jeffrey DATE: January 27, 2023 TIME: 9:48 AM Radiology Service Progress Note PATIENT NAME: Yadira Jeffrey DATE OF SERVICE: January 27, 2023 TIME: 10:20 AM PATIENT IDENTITY VERIFICATION COMPLETED USING TWO (2) IDENTIFIERS: Name and Date of confirmed by patient verbally and Name and Date of confirmed by identification band FALL SCREENING: Has the patient had 2 falls in the last year or 1 fall with injury or currently using an Ambulatory Assistive Device (Walker, Cane, Wheelchair, Crutches, etc.)? No PATIENT GENDER DATA: Female. status: : No status: N/A PATIENT RELEVANT IMPLANT DATA REVIEWED: Yes RADIOLOGY DEPARTMENT: MR; Exam(s) Completed: Body: Pancreas/Biliary PERIPHERAL IV DATA: Site assessment: Clean,Dry and Intact, Site disposition Discontinued SIGNED BY: RT Shaq(R) January 27, 2023 10:20 AM documented in this encounter [facility] 12-16-2022 Note HNO ID: [id number] Author: Sonja Riojas MD Service: ? Author Type: Physician Type: Progress Notes Filed: 12/16/2022 1:35 PM Note Text: Telephone Visit: DATE OF SERVICE: 12/11/2022 REASON FOR VISIT: Right ovarian cyst, post op follow up, MRI REVIEW DIAGNOSIS: Right ovarian cyst HISTORY OF PRESENT ILLNESS: Yadira Jeffrey is a 52 year old female with pmh of HTN, anxiety/depression, asthma, cervical stenosis os spine, GERD, PERCY who presented for abdominal discomfort. CT A/P initially completed in 02/2022 demonstrated a right ovarian cyst and continued monitoring has shown slight increase in size. Pelvic US follow up completed in 04/2022 demonstrated a thickened endometrium and follow up MRI pelvis in 08/2022 demonstrated a 5.4 complex right ovarian lesion, suspected to represent a hemmorhagic cyst. Patient has declined a pelvic exam due to traumatic history. Presents to hospital social worker onc for further evaluation. Thickened endometrium on MRI without bleeding for 1.5y Not up to date on pap screening 11/29/2022 Surgery- EUA, colposcopy with cervical biopsies, [facility] FINAL DIAGNOSIS A. Endocervix, curettage: ---Benign endocervical glandular epithelium. B. Endometrium, curettage: ---Superficial strips of inactive endometrium. C. Cervix, at 12:00, biopsy: ---Benign transformation zone mucosa with marked acute and chronic inflammation. D. Cervix, at 9:00, biopsy: ---Benign transformation zone mucosa with marked acute and chronic inflammation. E. Cervix, at 3:00, biopsy: ---Benign transformation zone mucosa with marked acute and chronic inflammation. Ca 125 : 7 DATE OF LAST VISIT: 12/11/2022 OBSTETRIC/ GYNECOLOGY HISTORY: Last Pap: 11/29/2022- negative RECENT PATHOLOGY: 11/29/2022 FINAL DIAGNOSIS A. Endocervix, curettage: ---Benign endocervical glandular epithelium. B. Endometrium, curettage: ---Superficial strips of inactive endometrium. C. Cervix, at 12:00, biopsy: ---Benign transformation zone mucosa with marked acute and chronic inflammation. D. Cervix, at 9:00, biopsy: ---Benign transformation zone mucosa with marked acute and chronic inflammation. E. Cervix, at 3:00, biopsy: ---Benign transformation zone mucosa with marked acute and chronic inflammation. RECENT IMAGING: Date: 09/05/2022 MRI Pelvis Date: 08/16/2022 CT A/P Date: 05/13/22 Pelvic US Date: 03/15/2022 CT A/P 12/12/2022-MRI pelvis IMPRESSION: Stable 5.4 cm nonenhancing right ovarian cystic lesion with heterogeneous internal signal intensity, possibly related to hemorrhage (ORADS 3). No endometrial thickening. HEALTH MAINTENANCE: Last mammogram: 16 years ago normal Last colonoscopy: scheduled fall 2022 ECOG performance status ECOG PERFORMANCE STATUS: 0- Fully active, able to carry on all pre-disease performance w/o restriction. SUBJECTIVE/INTERVAL HISTORY: Yadira Jeffrey is doing well since last visit. Has no acute complaint. OBJECTIVE: Deferred for televisit ASSESSMENT: 52 year old y/o female anxiety, depression, HTN presenting for follow up of complex right ovarian cyst and thickened endometrium. Also following with GI for gallbladder abnormalities. Complex right ovarian mass : unable to tolerate transvaginal probe or pelvic exams therefore the abdominal sono was limited. MRI 08/2022 shows 5.4 cm cyst, US shows 5.4cm cyst. MRI suggesting hemorrhagic cyst. Normal ca125 reviewed. Repeat MRI from 12/12 reviewed showing stable ovarian cyst and resolved thickened endometrium. Thickened endometrium on 08/2022 MRI - s/p DANDC with benign inactive endometrium, no further work up needed Not up to date on cervical cancer screening - Patient does not tolerate office exams therefore we performed pap, colpo and cervical biopsies while under anesthesia, path reviewed and benign. Pap reviewd NILM, HPV negative PLAN: Follow up 6 months for repeat MRI Sonja Riojas MD Spent 5 minutes discussing plan of care [facility] 12-16-2022 History of Present illness Narrative Images from the original note were not included. Telephone Visit: DATE OF SERVICE: 12/11/2022 REASON FOR VISIT: Right ovarian cyst, post op follow up, MRI REVIEW DIAGNOSIS: Right ovarian cyst HISTORY OF PRESENT ILLNESS: Yadira Jeffrey is a 52 year old female with pmh of HTN, anxiety/depression, asthma, cervical stenosis os spine, GERD, PERCY who presented for abdominal discomfort. CT A/P initially completed in 02/2022 demonstrated a right ovarian cyst and continued monitoring has shown slight increase in size. Pelvic US follow up completed in 04/2022 demonstrated a thickened endometrium and follow up MRI pelvis in 08/2022 demonstrated a 5.4 complex right ovarian lesion, suspected to represent a hemmorhagic cyst. Patient has declined a pelvic exam due to traumatic history. Presents to hospital social worker onc for further evaluation. Thickened endometrium on MRI without bleeding for 1.5y Not up to date on pap screening 11/29/2022 Surgery- EUA, colposcopy with cervical biopsies, D&C FINAL DIAGNOSIS A. Endocervix, curettage: ---Benign endocervical glandular epithelium. B. Endometrium, curettage: ---Superficial strips of inactive endometrium. C. Cervix, at 12:00, biopsy: ---Benign transformation zone mucosa with marked acute and chronic inflammation. D. Cervix, at 9:00, biopsy: ---Benign transformation zone mucosa with marked acute and chronic inflammation. E. Cervix, at 3:00, biopsy: ---Benign transformation zone mucosa with marked acute and chronic inflammation. Ca 125 : 7 DATE OF LAST VISIT: 12/11/2022 OBSTETRIC/ GYNECOLOGY HISTORY: Last Pap: 11/29/2022- negative RECENT PATHOLOGY: 11/29/2022 FINAL DIAGNOSIS A. Endocervix, curettage: ---Benign endocervical glandular epithelium. B. Endometrium, curettage: ---Superficial strips of inactive endometrium. C. Cervix, at 12:00, biopsy: ---Benign transformation zone mucosa with marked acute and chronic inflammation. D. Cervix, at 9:00, biopsy: ---Benign transformation zone mucosa with marked acute and chronic inflammation. E. Cervix, at 3:00, biopsy: ---Benign transformation zone mucosa with marked acute and chronic inflammation. RECENT IMAGING: Date: 09/05/2022 MRI Pelvis Date: 08/16/2022 CT A/P Date: 05/13/22 Pelvic US Date: 03/15/2022 CT A/P 12/12/2022-MRI pelvis IMPRESSION: Stable 5.4 cm nonenhancing right ovarian cystic lesion with heterogeneous internal signal intensity, possibly related to hemorrhage (ORADS 3). No endometrial thickening. HEALTH MAINTENANCE: Last mammogram: 16 years ago normal Last colonoscopy: scheduled fall 2022 ECOG performance status ECOG PERFORMANCE STATUS: 0- Fully active, able to carry on all pre-disease performance w/o restriction. SUBJECTIVE/INTERVAL HISTORY: Yadira Jeffrey is doing well since last visit. Has no acute complaint. OBJECTIVE: Deferred for televisit ASSESSMENT: 52 year old y/o female anxiety, depression, HTN presenting for follow up of complex right ovarian cyst and thickened endometrium. Also following with GI for gallbladder abnormalities. Complex right ovarian mass : unable to tolerate transvaginal probe or pelvic exams therefore the abdominal sono was limited. MRI 08/2022 shows 5.4 cm cyst, US shows 5.4cm cyst. MRI suggesting hemorrhagic cyst. Normal ca125 reviewed. Repeat MRI from 12/12 reviewed showing stable ovarian cyst and resolved thickened endometrium. Thickened endometrium on 08/2022 MRI - s/p D&C with benign inactive endometrium, no further work up needed Not up to date on cervical cancer screening - Patient does not tolerate office exams therefore we performed pap, colpo and cervical biopsies while under anesthesia, path reviewed and benign. Pap reviewd NILM, HPV negative PLAN: Follow up 6 months for repeat MRI Sonja Riojas MD Spent 5 minutes discussing plan of care documented in this encounter [facility] 12-12-2022 Note HNO ID: [id number] Author: Reed Jacome RT(R) Service: Radiology Author Type: Technologist Type: Progress Notes Filed: 12/12/2022 12:39 PM Note Text: Radiology Service Progress Note PATIENT NAME: Yadira Jeffrey DATE OF SERVICE: December 12, 2022 TIME: 12:39 PM PATIENT IDENTITY VERIFICATION COMPLETED USING TWO (2) IDENTIFIERS: Name and Date of confirmed by patient verbally and Name and Date of confirmed by identification band FALL SCREENING: Has the patient had 2 falls in the last year or 1 fall with injury or currently using an Ambulatory Assistive Device (Walker, Cane, Wheelchair, Crutches, etc.)? No PATIENT GENDER DATA: Female. status: : No status: N/A PATIENT RELEVANT IMPLANT DATA REVIEWED: Yes RADIOLOGY DEPARTMENT: MR; Exam(s) Completed: Body: Female Pelvis PERIPHERAL IV DATA: Site assessment: Clean,Dry and Intact, Site disposition Discontinued SIGNED BY: RT Shaq(R) December 12, 2022 12:39 PM [facility] 12-12-2022 Note HNO ID: [id number] Author: Ashia Rowell RN Service: Nursing Author Type: Registered Nurse Type: Progress Notes Filed: 12/12/2022 12:40 PM Note Text: Radiology Service Progress Note DATE OF SERVICE: December 12, 2022 TIME: 12:34 PM PATIENT WEIGHT: 298 LBS PATIENT IDENTITY VERIFICATION COMPLETED USING TWO (2) STANDARD IDENTIFIERS: Name and Date of confirmed by patient verbally. FALL SCREENING: Has the patient had 2 falls in the last year or 1 fall with injury or currently using an Ambulatory Assistive Device (Walker, Cane, Wheelchair, Crutches, etc.)? Yes, Patient High Risk for Falls What interventions were put in place to prevent falls during this visit? Instructed Patient to Call for Help if Needed and Offered Assistance with Transfers/Clothing PATIENT GENDER DATA: Female. status: : No status: NO. ALLERGIES: Reviewed and unchanged CONTRAST ALLERGY: No EXAM: MRI - CONTRAST TYPE: GROUP II IV SITE: Ambulatory: A peripheral IV was started in the Left antecubital site with a Angio cath: 22 gauge. and A Saline lock was inserted per protocol IV SITE APPEARANCE: Clean,Dry and Intact SIGNATURE: Ashia Rowell RN PATIENT NAME: Yadira Jeffrey DATE: December 12, 2022 TIME: 12:34 PM [facility] 12-12-2022 History of Present illness Narrative Radiology Service Progress Note PATIENT NAME: Yadira Jeffrey DATE OF SERVICE: December 12, 2022 TIME: 12:39 PM PATIENT IDENTITY VERIFICATION COMPLETED USING TWO (2) IDENTIFIERS: Name and Date of confirmed by patient verbally and Name and Date of confirmed by identification band FALL SCREENING: Has the patient had 2 falls in the last year or 1 fall with injury or currently using an Ambulatory Assistive Device (Walker, Cane, Wheelchair, Crutches, etc.)? No PATIENT GENDER DATA: Female. status: : No status: N/A PATIENT RELEVANT IMPLANT DATA REVIEWED: Yes RADIOLOGY DEPARTMENT: MR; Exam(s) Completed: Body: Female Pelvis PERIPHERAL IV DATA: Site assessment: Clean,Dry and Intact, Site disposition Discontinued SIGNED BY: RT Shaq(Na) December 12, 2022 12:39 PM Radiology Service Progress Note DATE OF SERVICE: December 12, 2022 TIME: 12:34 PM PATIENT WEIGHT: 298 LBS PATIENT IDENTITY VERIFICATION COMPLETED USING TWO (2) STANDARD IDENTIFIERS: Name and Date of confirmed by patient verbally. FALL SCREENING: Has the patient had 2 falls in the last year or 1 fall with injury or currently using an Ambulatory Assistive Device (Walker, Cane, Wheelchair, Crutches, etc.)? Yes, Patient High Risk for Falls What interventions were put in place to prevent falls during this visit? Instructed Patient to Call for Help if Needed and Offered Assistance with Transfers/Clothing PATIENT GENDER DATA: Female. status: : No status: NO. ALLERGIES: Reviewed and unchanged CONTRAST ALLERGY: No EXAM: MRI - CONTRAST TYPE: GROUP II IV SITE: Ambulatory: A peripheral IV was started in the Left antecubital site with a Angio cath: 22 gauge. and A Saline lock was inserted per protocol IV SITE APPEARANCE: Clean,Dry and Intact SIGNATURE: Ashia Rowell RN PATIENT NAME: Yadira Jeffrey DATE: December 12, 2022 TIME: 12:34 PM documented in this encounter [facility] 12-11-2022 Note HNO ID: [id number] Author: Sonja Riojas MD Service: ? Author Type: Physician Type: Progress Notes Filed: 12/11/2022 8:54 AM Note Text: DATE OF SERVICE: 12/11/2022 REASON FOR VISIT: Right ovarian cyst, post op follow up DIAGNOSIS: Right ovarian cyst HISTORY OF PRESENT ILLNESS: Yadira Jeffrey is a 52 year old female with pmh of HTN, anxiety/depression, asthma, cervical stenosis os spine, GERD, PERCY who presented for abdominal discomfort. CT A/P initially completed in 02/2022 demonstrated a right ovarian cyst and continued monitoring has shown slight increase in size. Pelvic US follow up completed in 04/2022 demonstrated a thickened endometrium and follow up MRI pelvis in 08/2022 demonstrated a 5.4 complex right ovarian lesion, suspected to represent a hemmorhagic cyst. Patient has declined a pelvic exam due to traumatic history. Presents to hospital social worker onc for further evaluation. Thickened endometrium on MRI without bleeding for 1.5y Not up to date on pap screening 11/29/2022 Surgery- EUA, colposcopy with cervical biopsies, [facility] Ca 125 : 7 DATE OF LAST VISIT: 11/06/22 OBSTETRIC/ GYNECOLOGY HISTORY: Last Pap: 11/29/2022- in process PAST MEDICAL HISTORY Diagnosis Date Anxiety Asthma Chronic back pain and neck pain Depression GERD (gastroesophageal reflux disease) HLD (hyperlipidemia) HTN (hypertension) Migraines Obesity, morbid, BMI 40.0-49.9 (HCC) RLS (restless legs syndrome) Sleep apnea PAST SURGICAL HISTORY Procedure Laterality Date ARTHROSCOPY KNEE DIAGNOSTIC W/WO SYNOVIAL BX SPX Left Family History Problem Relation Age of Onset Heart disease Mother Auto-Immune Hepatitis Mother Colon Cancer Mother Blood Disease Mother Osteoporosis Mother Arthritis Mother Depression Mother Depression Father Heart Attack Father Hypertension Father Hyperlipidemia Father Hypertension Sister Obstructive Sleep Apnea Sister Hypertension Brother Heart disease Maternal Grandfather Anesthesia Problems No Family History RECENT PATHOLOGY: 11/29/2022 FINAL DIAGNOSIS A. Endocervix, curettage: ---Benign endocervical glandular epithelium. B. Endometrium, curettage: ---Superficial strips of inactive endometrium. C. Cervix, at 12:00, biopsy: ---Benign transformation zone mucosa with marked acute and chronic inflammation. D. Cervix, at 9:00, biopsy: ---Benign transformation zone mucosa with marked acute and chronic inflammation. E. Cervix, at 3:00, biopsy: ---Benign transformation zone mucosa with marked acute and chronic inflammation. RECENT IMAGING: Date: 09/05/2022 MRI Pelvis Date: 08/16/2022 CT A/P Date: 05/13/22 Pelvic US Date: 03/15/2022 CT A/P HEALTH MAINTENANCE: Last mammogram: 16 years ago normal Last colonoscopy: scheduled fall 2022 ECOG performance status ECOG PERFORMANCE STATUS: 0- Fully active, able to carry on all pre-disease performance w/o restriction. SUBJECTIVE/INTERVAL HISTORY: Yadira Jeffrey has been doing well since EUA DANDC and colposcopy w/cervical biopsies. Reports pain has resolved and denies any bleeding. No fevers/chills or new complaints. She is scheduled for MRI tomorrow for follow up of the ovarian cyst. OBJECTIVE: VITALS: BP 105/51 Pulse 61 Temp (Src) 97.7 (Temporal) Resp 16 Ht 5' 7.008 (1.70m) Wt 298 lb (135.2kg) SpO2 95% BMI 46.66 kg/(m2). GENERAL: alert, oriented, pleasant, and cooperative. HEENT: Normocephalic, atraumatic, and no lesions. ASSESSMENT: 52 year old y/o female Body mass index is 46.66 kg/m?., anxiety, depression, HTN presenting with a complex right ovarian cyst and thickened endometrium. Also following with GI for gallbladder abnormalities. Complex right ovarian mass : unable to tolerate transvaginal probe or pelvic exams therefore the abdominal sono was limited. MRI 08/2022 shows 5.4 cm cyst, US shows 5.4cm cyst. MRI suggesting hemorrhagic cyst. Normal ca125 reviewed. Patient opted for surveillance at last visit and has repeat MRI tomorrow - follow up for televisit after MRI to discuss results. Thickened endometrium on 08/2022 MRI - s/p DANDC with benign inactive endometrium, no further work up needed Not up to date on cervical cancer screening - Patient does not tolerate office exams therefore we performed pap, colpo and cervical biopsies while under anesthesia, path reviewed and benign. Pap still pending will follow up results, plan for repeat pap in 3 years unless HPV can be added to our pap in which case if normal plan for repeat in 5 years unless new risk factors. PLAN: Televisit 12/16 to review MRI Sonja Riojas MD Communication from this consultation will be sent back to referring provider by way of fax or medical record: Gilmar Tesfaye, QUANTITATIVE STRATEGY ANALYST [employer], [employer] [address] [place] [id number] [facility] 12-11-2022 History of Present illness Narrative Images from the original note were not included. DATE OF SERVICE: 12/11/2022 REASON FOR VISIT: Right ovarian cyst, post op follow up DIAGNOSIS: Right ovarian cyst HISTORY OF PRESENT ILLNESS: Yadira Jeffrey is a 52 year old female with pmh of HTN, anxiety/depression, asthma, cervical stenosis os spine, GERD, PERCY who presented for abdominal discomfort. CT A/P initially completed in 02/2022 demonstrated a right ovarian cyst and continued monitoring has shown slight increase in size. Pelvic US follow up completed in 04/2022 demonstrated a thickened endometrium and follow up MRI pelvis in 08/2022 demonstrated a 5.4 complex right ovarian lesion, suspected to represent a hemmorhagic cyst. Patient has declined a pelvic exam due to traumatic history. Presents to hospital social worker onc for further evaluation. Thickened endometrium on MRI without bleeding for 1.5y Not up to date on pap screening 11/29/2022 Surgery- EUA, colposcopy with cervical biopsies, D&C Ca 125 : 7 DATE OF LAST VISIT: 11/06/22 OBSTETRIC/ GYNECOLOGY HISTORY: Last Pap: 11/29/2022- in process PAST MEDICAL HISTORY Diagnosis Date Anxiety Asthma Chronic back pain and neck pain Depression GERD (gastroesophageal reflux disease) HLD (hyperlipidemia) HTN (hypertension) Migraines Obesity, morbid, BMI 40.0-49.9 (HCC) RLS (restless legs syndrome) Sleep apnea PAST SURGICAL HISTORY Procedure Laterality Date ARTHROSCOPY KNEE DIAGNOSTIC W/WO SYNOVIAL BX SPX Left Family History Problem Relation Age of Onset Heart disease Mother Auto-Immune Hepatitis Mother Colon Cancer Mother Blood Disease Mother Osteoporosis Mother Arthritis Mother Depression Mother Depression Father Heart Attack Father Hypertension Father Hyperlipidemia Father Hypertension Sister Obstructive Sleep Apnea Sister Hypertension Brother Heart disease Maternal Grandfather Anesthesia Problems No Family History RECENT PATHOLOGY: 11/29/2022 FINAL DIAGNOSIS A. Endocervix, curettage: ---Benign endocervical glandular epithelium. B. Endometrium, curettage: ---Superficial strips of inactive endometrium. C. Cervix, at 12:00, biopsy: ---Benign transformation zone mucosa with marked acute and chronic inflammation. D. Cervix, at 9:00, biopsy: ---Benign transformation zone mucosa with marked acute and chronic inflammation. E. Cervix, at 3:00, biopsy: ---Benign transformation zone mucosa with marked acute and chronic inflammation. RECENT IMAGING: Date: 09/05/2022 MRI Pelvis Date: 08/16/2022 CT A/P Date: 05/13/22 Pelvic US Date: 03/15/2022 CT A/P HEALTH MAINTENANCE: Last mammogram: 16 years ago normal Last colonoscopy: scheduled fall 2022 ECOG performance status ECOG PERFORMANCE STATUS: 0- Fully active, able to carry on all pre-disease performance w/o restriction. SUBJECTIVE/INTERVAL HISTORY: Yadira Jeffrey has been doing well since EUA D&C and colposcopy w/cervical biopsies. Reports pain has resolved and denies any bleeding. No fevers/chills or new complaints. She is scheduled for MRI tomorrow for follow up of the ovarian cyst. OBJECTIVE: VITALS: BP 105/51 Pulse 61 Temp (Src) 97.7 (Temporal) Resp 16 Ht 5' 7.008 (1.70m) Wt 298 lb (135.2kg) SpO2 95% BMI 46.66 kg/(m^2). GENERAL: alert, oriented, pleasant, and cooperative. HEENT: Normocephalic, atraumatic, and no lesions. ASSESSMENT: 52 year old y/o female Body mass index is 46.66 kg/m ., anxiety, depression, HTN presenting with a complex right ovarian cyst and thickened endometrium. Also following with GI for gallbladder abnormalities. Complex right ovarian mass : unable to tolerate transvaginal probe or pelvic exams therefore the abdominal sono was limited. MRI 08/2022 shows 5.4 cm cyst, US shows 5.4cm cyst. MRI suggesting hemorrhagic cyst. Normal ca125 reviewed. Patient opted for surveillance at last visit and has repeat MRI tomorrow - follow up for televisit after MRI to discuss results. Thickened endometrium on 08/2022 MRI - s/p D&C with benign inactive endometrium, no further work up needed Not up to date on cervical cancer screening - Patient does not tolerate office exams therefore we performed pap, colpo and cervical biopsies while under anesthesia, path reviewed and benign. Pap still pending will follow up results, plan for repeat pap in 3 years unless HPV can be added to our pap in which case if normal plan for repeat in 5 years unless new risk factors. PLAN: Televisit 12/16 to review MRI Sonja Riojas MD Communication from this consultation will be sent back to referring provider by way of fax or medical record: Gilmar Tesfaye, QUANTITATIVE STRATEGY ANALYST [employer], ABEER [address] [place] [id number] documented in this encounter [facility] 12-11-2022 Nurse Note Patient states that both burning and bleeding have stopped and she denies pain. Kathy Hicks MA documented in this encounter [facility] 12-02-2022 Miscellaneous Notes December 02, 2022 11:31 AM Patient called for post op follow up assessment. Reports she is doing well. Pain: Patient rates pain 4 on a scale of 0-10. 0 being no pain and 10 being worst pain imaginable. Patient states pain is tolerable. Taking Tylenol and Ibuprofen Diet: Patient is able tolerate fluids and normal diet. Bowel Movement: Patient is able to pass gas and has had a bowel movement. Voiding: Patient is able to void without difficulty, c/o burning with voiding since surgery, has improved. Advised to monitor, if does not completely improve, worsens or urgency/frequency in next few days to notify office Vaginal Discharge: Denies heavy vaginal bleeding Medication: Denies questions or concerns about medication. Post op restrictions reviewed with patient including - activity- no heavy lifting, on pelvic rest - keep incision clean and dry. Ok to use mild antibacterial soap. - reviewed signs and symptoms to notify office including signs of infection, fever, heavy vaginal bleeding. - she is aware of post op appointment 12/11/2022 Patient verbalized understanding and denies further questions at this time. Understands to call the office with further concerns/questions. Corin Magallanes RN Pt had Exam under anesthesia Colposcopy with cervical biopsies Dilation and curettage with Dr. Riojas on 11/29/22 Will call for post operative assessment documented in this encounter [facility] 11-29-2022 Note HNO ID: [id number] Author: Sophie Barroso APRN.HOSEMAN Service: Anesthesiology Author Type: Nurse Stripping And Booking Machine Operator Type: Anesthesia Procedure Notes Filed: 11/29/2022 6:54 PM Note Text: ANESTHESIOLOGY PROCEDURE NOTE Airway General Information Procedure Start Time/Medication Administration: 11/29/2022 6:49 PM Patient location during procedure: OR Patient identity confirmed: arm band, patient and care staff nurse icu resource team Staffing Anesthesiologist: Nick Goldstein MD HOSEMAN: Sophie Barroso APRN.HOSEMAN Performed by: HOSEMAN Indications and Patient Condition Indications for airway management: anesthesia Preoxygenated: yes anesthesia circuit Patient position: sniffing Method: asleep Airway Accessory: oral airway (#4) Final Airway Details Final airway type: supraglottic airway Number of attempts at approach: 1 Final Supraglottic Airway: i-gel Size 5 Seal Adequate: yes Failed airway: no Unrecognized esophageal intubation: no Airway not difficult Comments Lips/teeth in preanesthetic condition SIGNATURE: Sophie Barroso APRN.HOSEMAN PATIENT NAME: Yadira Jeffrey DATE: November 29, 2022 TIME: 6:53 PM CSN: [id number] [facility] 11-26-2022 Instructions Kamille Rosenthal PA-C - 11/26/2022 11:53 AM EDT PATIENT PREOPERATIVE INSTRUCTIONS Sonja Riojas,* has scheduled you for your procedure at this surgery center: [facility]: [phone] --[id number] [address]. Please check in on the 1st floor at registration desk 6. Please read below carefully for your personalized instructions. Dietary Restrictions: - No solid food after midnight. - You may have 12 ounces of clear liquids (water, clear juices such as apple juice or gatorade, carbonated beverages, clear tea, black coffee, jello) until 2 hours before scheduled arrival at facility. Is Patient Diabetic:No Medications: Unless instructed differently below, stay on all of your medications until your surgery. Approved medications to take the morning of surgery with a sip of water: Tramadol if needed, Maxalt if needed, Claritin if needed, Pepcid if needed, Bentyl if needed, Albuterol if needed Please hold losartan the morning your surgery. If you start any new medications after today's visit, please contact the surgeon's office. Blood Thinning Medications: - Stop NSAIDS (Ibuprofen, Advil, Aleve, Motrin, Celebrex, Mobic, etc.) 7 days before surgery, as directed by your surgeon. - Stop Aspirin 7 days before surgery, as directed by your surgeon. - Stop Vitamin E, ALL multi-vitamins, herbals and dietary supplements 14 days before surgery. - You may take Tylenol (Acetaminophen) or any of your pain medications that do not contain aspirin or NSAIDS as needed. Important Reminders: - If you use CPAP/BIPAP, bring the machine with you to the surgery center. - If you are prescribed inhalers for breathing, continue using them. - Candy, mints, and tobacco products are NOT permitted the morning of surgery. - Hearing aids, dentures and glasses may be worn the morning of surgery. - NO jewelry, body piercings, makeup, hairpins or contacts are to be worn the day of surgery. If you develop symptoms such as a fever, cold, or flu, or have other changes to your health within TWO DAYS of scheduled surgery or the morning of surgery, please contact the surgery center above. Personal Belongings: -Please have photo ID and insurance cards. -If you do not have a copy of advance directives on file with us, please bring a copy with you on the day of surgery. - Leave ALL valuables and money at home or with family members. For Outpatient Procedures: - YOU MUST HAVE A RESPONSIBLE PENAL OFFICER TAKE YOU HOME. A CHEMOTHERAPIST OR PROTEOMICS SCIENTIST CANNOT BE MADE A RESPONSIBLE PENAL OFFICER. - We recommend that a responsible person stays with you overnight to take care of you. - You cannot stay in a hotel alone after outpatient surgery. You will not be permitted to have your surgery, if you do not have someone to take care of you. Arrival Time for Surgery: - The Surgery Center or hospital where you are having surgery will call the afternoon before surgery (or Friday for Friday surgery) with a scheduled arrival time. - If you have not heard by 4 pm, please contact the surgery center above. Please be aware that emergency situations arise, which may delay or change your surgical time. If this happens, we will notify you as soon as possible and regret any inconvenience. If you already have an Advance Directive, please fax a copy to [phone] or email to for it to be added to your chart. If you do not have an Advance Directive, you can find the appropriate form and more information at [email or web address]. We recommend that you complete the Advance Directive form found on the website and bring it with you the day of your surgery. It can be witnessed and scanned into your chart that day. Kamille Rosenthal PA-C documented in this encounter [facility] 11-26-2022 History and physical note HISTORY AND PHYSICAL EXAMINATION SERVICE DATE: 11/26/2022 SERVICE TIME: 11:24 AM PRIMARY CARE PHYSICIAN: Gilmar Tesfaye CNP This is a virtual visit using [employer] video visit. It required patient-provider interaction for the medical decision making as documented below. REASON FOR VISIT: Yadira Jeffrey is a 52 year old female who is scheduled for Procedure(s): EXAM UNDER ANESTHESIA PELVIC / VAGINAL (N/A) COLPOSCOPY W/ BIOPSY VAGINA/CERVIX (N/A) DILATION AND CURETTAGE (N/A) at the request of Dr. Sonja Riojas for consultation. My final recommendation will be communicated back to the requesting physician by way of shared medical record or letter. I have communicated my name and active licensure. The patient's identity and physical location were verified at the time of this visit. Either the patient or their legal national account representative has been informed of the risks and benefits of -- and alternatives to -- treatment through a remote evaluation and consents to proceed with the evaluation remotely. Subjective The patient has the following: ACTIVE PROBLEM LIST Sleep Apnea Htn (Hypertension) Gerd (Gastroesophageal Reflux Disease) Depression Asthma Rls (Restless Legs Syndrome) Obesity, Morbid, Bmi 40.0-49.9 (Hcc) Hld (Hyperlipidemia) Chronic Back Pain COVID-19 Immunization Status COVID-19 VACCINE (Series Information) Completed 03/23/2022 Imm Admin: COVID-19 booster vaccine, age 12+ yr, bivalent (PFIZER-BIONTECH) 05/30/2021 Imm Admin: COVID-19 original vaccine, age 12+ yr, monovalent (PFIZER-BIONTECH - PURPLE TOP) 10/10/2020 Imm Admin: COVID-19 original vaccine, age 12+ yr, monovalent (PFIZER-BIONTECH - PURPLE TOP) Only the first 3 history entries have been loaded, but more history exists. Patient reports being fully vaccinated against COVID-19. Patient reports no prior COVID-19 infections. CHIEF COMPLAINT: Pre-op exam HPI: This is a 52 year old female who complains of thickened endometrium and ovarian cyst seen on imaging to evaluate intermittent right upper abdominal pain and spasms. She denies abnormal bleeding or discharge. She elects to proceed with above procedure. REVIEW OF SYSTEMS: General: No weight loss, malaise or fevers. Neurological: RLS -takes GAbapentin at hs Positive for: headaches (migraines). Negative for: multiple sclerosis, Parkinson's disease, seizures and strokes. Respiratory: Positive for: asthma, obstructive sleep apnea and CPAP/BiPAP noncompliant. Negative for: COPD, prior COVID-19 infection, current cough and URI < 2 weeks. Cardiovascular: History of superficial thrombus from varicose veins 2016 - treated with aspirin. No current symptoms. Wears compression stockings, denies pitting edema Positive for: hyperlipidemia and hypertension Negative for: angina, arrhythmia, CAD, chest pain, CHF, DVT/PE and murmur/valvular heart disease. GI: Gallbladder thickening on imaging Positive for: GERD (, history of H. Pylori) and irritable bowel syndrome (under investigation - takes Bentyl prn, mixed symptoms. Following with GI) Negative for: inflammatory bowel disease, pancreatitis and vomiting. : Kidney cyst. No history of dysuria, frequency or incontinence, stones or chronic kidney disease. No difficulty urinating, nocturia > 1 time per night or hematuria. REGIONAL FLATBED TRUCK DRIVER: See HPI. Endocrine: History of prediabetes - no current medications. No history of diabetes. Has not taken steroids within the past 30 days. No history of endocrinological symptoms or problems. Negative for: diabetes mellitus, hyperthyroidism, hypothyroidism, polydipsia and steroid for chronic problem. Hematology: No history of bleeding or clotting disorder. Patient is not taking anti-coagulation or platelet medications. No history of hematological symptoms or problems. Oncology: No history of CA metastasis, chemo within 30 days, or radiotherapy within 90 days. No history of oncological symptoms or problems. Psych: Positive for: depression (no current medication. Therapy in the past. Denies SI/HI). Musculoskeletal: Positive for: back pain and joint pain (and neck pain - takes Tramadol bid and Zanaflex infrequently prn). PAST MEDICAL HISTORY Diagnosis Date Anxiety Asthma Chronic back pain and neck pain Depression GERD (gastroesophageal reflux disease) HLD (hyperlipidemia) HTN (hypertension) Migraines Obesity, morbid, BMI 40.0-49.9 (HCC) RLS (restless legs syndrome) Sleep apnea PAST SURGICAL HISTORY Procedure Laterality Date ARTHROSCOPY KNEE DIAGNOSTIC W/WO SYNOVIAL BX SPX Left FAMILY HISTORY Problem Relation Age of Onset Heart disease Mother Auto-Immune Hepatitis Mother Colon Cancer Mother Blood Disease Mother Osteoporosis Mother Arthritis Mother Depression Mother Depression Father Heart Attack Father Hypertension Father Hyperlipidemia Father Hypertension Sister Obstructive Sleep Apnea Sister Hypertension Brother Heart disease Maternal Grandfather Anesthesia Problems No Family History Social History Tobacco Use Smoking status: Never Smokeless tobacco: Never Vaping Use Vaping Use: Never used Substance Use Topics Alcohol use: Not Currently Drug use: Never Prior to Admission medications as of 11/26/22 1132 Medication Sig Last Dose Taking famotidine (PEPCID) 20 mg tablet TAKE 1 TABLET BY MOUTH TWICE DAILY NEEDED FOR 30 DAYS Yes loratadine 10 mg cap Take 10 mg by mouth. Yes losartan (COZAAR) 25 mg tablet q 24 HR. Yes montelukast (SINGULAIR) 10 mg tablet Take 10 mg by mouth once daily. Yes rizatriptan (MAXALT) 10 mg tablet TAKE 1 TABLET BY MOUTH ONCE NEEDED FOR MIGRAINE. CAN REPEAT AFTER 2 HOURS IF NEEDED. STOP IMITREX Yes tiZANidine (ZANAFLEX) 2 mg tablet Take 2 mg by mouth once daily as needed. Yes traMADol (ULTRAM) 50 mg tablet twice daily. Yes albuterol HFA (PROVENTIL HFA, VENTOLIN HFA) 90 mcg/actuation inhaler albuterol sulfate HFA 90 mcg/actuation aerosol inhaler Yes dicyclomine (BENTYL) 20 mg tablet Yes atorvastatin (LIPITOR) 20 mg tablet atorvastatin 20 mg tablet TAKE 1 TABLET BY MOUTH ONCE DAILY Yes gabapentin (NEURONTIN) 300 mg capsule TAKE 2 CAPSULES BY MOUTH AT BEDTIME FOR 30 DAYS aspirin, enteric coated (ASPIRIN, ENTERIC COATED) 81 mg EC tablet q 24 HR. No medication comments found. ALLERGIES Allergen Reactions Codeine Other: See Comments Objective PHYSICAL EXAM: (if completed, exam performed via video enabled technology) GENERAL: alert and appropriate, in no distress, well-hydrated, well nourished, happy, smiling, interactive, and overweight SKIN: no rash noted HEAD: normocephalic, no abnormality or lesion noted EYES: no injection NOSE: external nose normal without rhinorrhea NECK: full ROM, limited extension with +numbness/tingling in posterior neck with extension RESPIRATORY: breathing non-labored and no grunting/flaring/retractions CHEST: equal chest rise with normal respiratory effort HEART: Patient confirmed radial pulse and counted aloud with regular rhythm. HR 60 BPM. No cyanosis ABDOMEN: soft and non-tender NEUROLOGIC: no cerebral deficits noted PAIN ASSESSMENT: VITALS: Pulse 60[patient counted[ Ht 5' 7 [patient reported[ (1.70m) Wt 270 lb (122.5kg) BMI 42.28 kg/(m^2). Diagnostic tests reviewed for today's visit: Lab Value Units Date High Low HB 13.7 g/dL 07/08/2022 15.5 11.5 HCT 40.5 % 07/08/2022 46.0 36.0 WBC 4.66 k/uL 07/08/2022 11.00 3.70 PLT 206 k/uL 07/08/2022 400 150 NA 137 mmol/L 11/20/2022 144 136 K 4.1 mmol/L 11/20/2022 5.1 3.7 GLUC 107 mg/dL 11/20/2022 99 74 BUN 16 mg/dL 11/20/2022 21 7 CREAT 0.60 mg/dL 11/20/2022 0.96 0.58 PTSEC No results within date range. INR No results within date range. APTT No results within date range. ALT 17 U/L 11/20/2022 38 7 AST 18 U/L 11/20/2022 35 13 TBILI 0.6 mg/dL 11/20/2022 1.3 0.2 TSH No results within date range. Cardiology records from [place] (Scanned under scanned documents 11/26/2022) Carotid ultrasound 04/11/2020 <50% stenosis bilateral ICA Stress test 03/29/2020 - normal lexiscan stress test without ECG evidence of myocardial ischemia. no symptoms renuka to the chief complaint 03/29/2020 - Myocardial perfusion imaging - no acute or reversible ischemia, fixed anterior wall perfusion defect versus breast attenuation artifact normal wall motion, EF 60% Echo 03/22/2020 Global LV systolic function is normal. Borderline LVH RV normal size and function no significant valvular abnormalities EKG 03/13/2020 sinus rhythm Spirometry 03/02/2020 - normal spirometry without a bronchodilator response. May consider methacholine challenge testing to rule out asthma/reactive airway disease or full PFT to evaluate for restrictive lung disease Assessment 1. Preop examination Scheduled for above procedure 2. Obstructive sleep apnea syndrome Does not use CPAP 3. Primary hypertension On losartan. Most recent BP reading in Epic 151/56 11/06/2022. Follows with PCP. Will be pending DOS BP 4. Gastroesophageal reflux disease, unspecified whether esophagitis present Patient reports Pepcid controls symptoms better than omeprazole did in the past. Follows with GI 5. Mild intermittent asthma without complication Uses Albuterol prn about three times per week. Symptoms are triggered by allergens/pollen. Patient reports breathing is currently stable 6. Obesity, morbid, BMI 40.0-49.9 ([facility]) BMI 42 7. Hyperlipidemia, unspecified hyperlipidemia type On Lipitor 8. Chronic back pain, unspecified back location, unspecified back pain laterality On Tramadol bid and takes Gabapentin prn for chronic back pain and neck pain. Francis Activity Status Index: METS: Walk indoors, such as around the house (1.75 METs) Do light work around the house, such as dusting or washing dishes (2.70 METs) Take care of self; that is eating, dressing, bathing, using the toilet (2.75 METs) Do moderate work around the house, such as vacuuming, sweeping floors, or carrying in groceries (3.50 METs) DASI Score: 10.7 (Prior to her mother being diagnosed with cancer 3 months ago, she was exercising regularly for 30 minutes 3-4 times per week Had previous cardiac workup for chest discomfort ~3 [address] [facility] [address] [facility] for exertional chest discomfort - states no recent chest discomfort) Patient denies any chest pain or undue shortness of breath with the above physical activity. STOP-Bang Score: STOP-Bang Score: (PERCY - does not use Bipap) [id number] Score: Age: <65 Sex: female Hypertension history: Yes Vascular disease history: No [id number] Score: 2 ASA Class: 3 ANESTHESIA FINDINGS: Intubation History: No abnormal airway history Significant Anesthesia Considerations: patient recalls being reminded to breathe deeply after her knee surgery Airway History: No abnormal airway history I - PHYSICAL EVALUATION AIRWAY Patient intubated: No. Tracheostomy tube not present Mallampati: II. Neck ROM: limited extension. Mouth opening: adequate. Short neck: no. Additional comments: Patient admits to numbness/tingling with extension in the back of her neck. Thick neck: no Lip Bite Test: I DENTAL Dental findings: missing tooth/teeth. Additional comments: Implant, missing bilateral lower teeth. II - ANESTHESIA PLAN ASA Score: 3 Anesthetic plan additional comments: *PACC/TCI - anesthesia choice. Beta Helen Monitoring Plan Post Procedure Analgesic Plan Prepared for Surgery: optimally prepared for surgery. CONSULTS: Patient does not require consults for optimization at this time Planned Anesthetic: anesthesia choice The Following Tests/Procedures Have Been Initiated: No orders of the defined types were placed in this encounter. Instructions Given to Patient: Instructions located in the after visit summary. Patient given verbal and written preop instructions and voices comprehension and compliance. It was necessary to convert the virtual visit to a telephone encounter due to technical difficulties. SIGNATURE: Kamille Rosenthal PA-C PATIENT NAME: Yadira Jeffrey DATE: November 26, 2022 TIME: 11:24 AM PAGER/CONTACT #: documented in this encounter [facility] 11-22-2022 Miscellaneous Notes Procedure:COLPOSCOPY W/ BIOPSY VAGINA/CERVIX D&C Physician: Dr. Riojas Location: [facility]: [phone] Date & Time: 11/29/2022 time will be given to you, by the hospital, after 12:00noon, the DAY BEFORE the procedure. MEDICAL CLEARANCE: No CARDIAC CLEARANCE: No PRE ADMISSION TESTING: scheduled 11/26/2022 THE FOLLOWING WAS EVALUATED Motivation To Learn: Interested Family/Significant Other Support: Unable to assess - Family not present Cognitive Ability: Alert and oriented Patient Learns Best By: Individual Instruction Verbal Instruction The Following Influencing Factors Were Barriers To This Education Session: None The Following Physical Limitations Were Barriers To This Education Session: None Instruction Provided To: Patient MEDICATION INFORMATION ASPIRIN and ADVIL can make you more prone to bleeding after surgery. Please STOP taking these medications at least (5) days before and for (3) days after surgery or procedure. Some common medications that contain ASPIRIN or act like Aspirin are TO BE AVOIDED: This is a list of the medications you should avoid: Advill Celebrex Motrin Aggrenox Clinoril Naprosyn(naproxen) Agrylin NSAIDS Pepto-Bismol Aleve Ecotrin Persantine Elvira-Follansbee Excedrin Plaquenil Anacin Heparin Plavix Ascriptin Herbals Pletal Aspergum Ibuprofen Ticlid Carlos Indocin Trental Bextra Midol [place]ish Bufferin Gingko Biloba Vitamin E (MVI) MEDICATIONS YOU MAY SUBSTITUTE Tylenol (*Denotes prescription needed to obtain these medications) Learning Topic: Procedure/Surgery: Instructions reviewed for arrival time, parking and admission. Specific topics reviewed and discussed with all surgical patients include: No eating, drinking, or smoking after midnight prior to surgery. Medications as prescribed by anesthesia or the physician. Bowel Prep as indicated. Review of information contained in surgical packet Pre-operative and intra-operative general activities were reviewed including: Holding Area, assessments, surgical positioning, and Family Waiting Area. Written post-operative instructions were given to the patient regarding post-op activity, pain control, symptoms to report. Post-operative instructions provided and reviewed with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 07-08-2022 History of Present illness Narrative NAME: Yadira Jeffrey AGE: [id number] year old Referred by: Gilmar Tesfaye [id number] [facility] [address] Referred for: an opinion regarding abdominal pain and diarrhea and my final recommendations will be communicated back to the requesting physician by way of a copy of today's office notes. GENERAL ROS: Colon polyps: Yes Colon cancer: No Other cancer: No Radiation / Chemotherapy: No Crohn's disease / Ulcerative colitis: Yes High cholesterol or triglycerides: Yes Ulcers: Yes Gallstones: No Hepatitis / jaundice: No Heart Disease: No Lung Disease: No Liver problems:No Thyroid disease: No Kidney stones: No Pancreatitis: No Diabetes: Yes prediabetic Arthritis: Yes Rheumatic fever:No Gastrointestinal bleeding: No Depression or other mental illness:Yes Other personal illness:No FAMILY HISTORY: Liver problems: Yes mother Colitis: Yes grandparents Colon cancer:No Other cancers: No No past surgical history on file. GI SPECIFIC ROS: Difficulty swallowing / foods sticking in throat:No Heartburn:Yes Hoarseness: Yes Chronic cough: Yes Regurgitation: Yes Chest pain: Yes Filling up quickly at meals: Yes Loss of appetite:Yes Nausea: Yes Vomiting: Yes occasionally Abdominal pain:Yes Recent change in bowel movements: Yes Bloody or black, bowel movements: Yes bloody Constipation: Yes Diarrhea: {Yes Loss of control of bowel movements: No Night sweats, fever, chills: Yes Thought or memory problems: No Fluid in abdomen (ascites):No Prominent leg swelling:No Vomiting blood: No Recent change in weight: No CURRENT MEDICATIONS: Current Outpatient Medications Medication Sig gabapentin (NEURONTIN) 300 mg capsule TAKE 2 CAPSULES BY MOUTH AT BEDTIME FOR 30 DAYS loratadine 10 mg cap Take 10 mg by mouth. losartan (COZAAR) 25 mg tablet q 24 HR. montelukast (SINGULAIR) 10 mg tablet Take 10 mg by mouth once daily. omeprazole (PRILOSEC) 40 mg capsule rizatriptan (MAXALT) 10 mg tablet TAKE 1 TABLET BY MOUTH ONCE NEEDED FOR MIGRAINE. CAN REPEAT AFTER 2 HOURS IF NEEDED. STOP IMITREX tiZANidine (ZANAFLEX) 2 mg tablet Take 2 mg by mouth once daily as needed. traMADol (ULTRAM) 50 mg tablet TAKE 1 TABLET BY MOUTH TWICE DAILY NEEDED FOR 30 DAYS aspirin, enteric coated (ASPIRIN, ENTERIC COATED) 81 mg EC tablet q 24 HR. albuterol HFA (PROVENTIL HFA, VENTOLIN HFA) 90 mcg/actuation inhaler albuterol sulfate HFA 90 mcg/actuation aerosol inhaler dicyclomine (BENTYL) 20 mg tablet atorvastatin (LIPITOR) 20 mg tablet atorvastatin 20 mg tablet TAKE 1 TABLET BY MOUTH ONCE DAILY No current facility-administered medications for this visit. ALLERGIES: Codeine PERSONAL HABITS: Tobacco: No Alcohol: No Coffee: No The above documentation completed by Melva Sol LPN I agree with the Chief Complaint, ROS, and Past Histories independently gathered by the clinical collection support specialist and the remaining scribed note accurately describes my personal service to the patient. Alejandro Lim MD PRESENTING COMPLAINT & HISTORY: Patient presents with: New Patient: Abdominal pain History: patient with right sided muscle aches with very loose stool every time that she eats. Symptoms began in 11/2021. EGD performed 2022 and was positive for H. pylori which eventually successfully treated with 2 rounds of antibiotics. Since then , she has had a change in bowel habits or significant diarrhea. GB was was evaluated found to be normal with 88% ejection fraction quadrant discomfort Patient with 8-9 loose bowel movements per day for her. In a good day she only has 2-3 loose bowel movements. Occasionally she is constipated and passes scybalous stool. The patient has been on a keto diet since 2017. She has lost 100 pounds. Eating more carbs since 11/2021 Her appetite is good. occasional vomiting one time per month followed by ER visit. No etiology found. There is no history of heartburn, hematemesis or dysphagia. History of peptic ulcer disease as a child. There is no history of cholelithiasis, hepatic or pancreatic disease. Intermittent BPR in 01/2022. History of hemorrhoids per colonoscopy performed 01/2021. Colonoscopy polyps found as well BM frequency 1 daily. Stool is solid and tubular with no history of constipation, diarrhea, hematochezia or melena. PHYSICAL EXAMINATION: General Appearance: Cooperative, in no acute distress, alert. Eyes: Conjunctivas/corneas clear. Oropharynx: Lips, tongue, and oral mucosa normal. Thyroid: No goiter. Lungs: Lungs clear to auscultation, no wheezing or rhonchi. Heart: RRR without murmur, gallop or rubs. Abdomen: Bowel sounds normal. Soft and non-tender. No masses or organomegaly. Extremities: Normal, with no deformities or edema. Skin: No rashes or lesions. Lymph:No cervical or supraclavicular adenopathy. Pulses: normal Bruits: No. Joints: No deformity. Good range of motion. Tenderness over right lower rib area IMPRESSION: Recurrent discomfort that is intermittent-no evidence for cholelithiasis R/O musculoskeletal discomfort from exercising Change in bowel habits with loose stools and some constipation following antibiotic treatment for H. pylori Obesity PERCY PLAN: Stool evaluation CBC, CRP CMP, ESR KUB and upright Virtual visit in 3 weeks STAFF PHYSICIAN Alejandro Lim MD documented in this encounter [facility] Evaluation note Diagnosis Diarrhea, unspecified type- Primary Other constipation [facility] Diagnosis Change in bowel habits- Primary Other symptoms involving digestive system [facility] Change in bowel habits- Primary Other symptoms involving digestive system Diarrhea, unspecified type [facility] Preop examination- Primary Preoperative examination, unspecified Obstructive sleep apnea syndrome Obstructive sleep apnea (adult) (pediatric) Primary hypertension Unspecified essential hypertension Gastroesophageal reflux disease, unspecified whether esophagitis present Mild intermittent asthma without complication Unspecified asthma Obesity, morbid, BMI 40.0-49.9 (HCC) Morbid obesity Hyperlipidemia, unspecified hyperlipidemia type Chronic back pain, unspecified back location, unspecified back pain laterality Thickened endometrium Nonspecific (abnormal) findings on radiological and other examination of genitourinary organs [facility] Thickened endometrium [R93.89 (ICD-10-CM)]- Primary Nonspecific (abnormal) findings on radiological and other examination of genitourinary organs Cervical cancer screening [Z12.4 (ICD-10-CM)] Screening for malignant neoplasm of the cervix Post-operative state [Z98.890 (ICD-10-CM)] Other postprocedural status Obesity, morbid, BMI 40.0-49.9 (HCC) Morbid obesity [facility] Diagnosis Cervical cancer screening- Primary Screening for malignant neoplasm of the cervix documented in this encounter [facility] note* Diagnosis Cyst of ovary, unspecified laterality- Primary documented in this encounter [facility] note* Diagnosis Personal history of colonic polyps- Primary Diarrhea, unspecified type Obesity, morbid, BMI 40.0-49.9 (HCC) Morbid obesity documented in this encounter [facility] note* Diagnosis Other intra-abdominal and pelvic swelling, mass and lump documented in this encounter [facility] note* Diagnosis Cyst of ovary, unspecified laterality documented in this encounter [facility] for referral (narrative)* Diagnostic Procedure Only (Routine) - Closed Specialty Diagnoses / Procedures [facility] To Contact XR IMAGING Diagnoses Diarrhea, unspecified type Other constipation Procedures XR ABDOMEN 2V ROUTINE SUPINE W UPRIGHT/DECUB/CTL RADIOLOGIC EXAM ABDOMEN 2 VIEWS Alejandro Lim MD [address] [employer] [address] [place] [id number] Xr Imaging Referral ID Status Reason Start Date Expiration Date V isits Requested Visits Authorized [id number] Closed Auto-Generate d Referral 07/08/2022 08/07/2023 1 1 [facility] for referral (narrative)* Diagnostic Procedure Only (Routine) - Pending Review Specialty Diagnoses / Procedures Referred By Kashif hardwick Referred To Contact US IMAGING Diagnoses Change in bowel habits Procedures US ABD RT UPPER QUADRANT US ABDOMINAL REAL TIME W/IMAGE LIMITED Alejandro Lim MD [address] [place] [address] Us Imaging Referral ID Status Reason Start Date Expiration Date Visits Requested Visits Authorized [id number] Pending Review Auto-Generat ed Referral 08/28/2022 09/27/2023 1 1 [facility] for referral (narrative)* Outpatient Procedure (Routine) - Pending Review Specialty Diagnoses / Procedures Referred By Kashif t Referred To Contact [facility] Diagnoses Personal history of colonic polyps Diarrhea, unspecified type Procedures COLONOSCOPY DIAGNOSTIC COLONOSCOPY FLX DX W/COLLJ SPEC WHEN PFRMD Alejandro Lim MD [address] [place] [id number] [place] [id number] Referral ID Status Reason Start Date Expiration Date Visits Requested Visits Authorized [id number] Pending Review Auto-Generat ed Referral 02/04/2023 02/05/2024 1 1 * Outpatient Procedure (Routine) - Pending Review Specialty Diagnoses / Procedures Referred By Contac t Referred To Contact [facility] Diagnoses Diarrhea, unspecified type Procedures EGD DIAGNOSTIC ESOPHAGOGASTRODUODENOSC OPY TRANSORAL DIAGNOSTIC Alejandro Lim MD [address] [employer] [address] [place] [address] [place] [address] Referral ID Status Reason Start Date Expiration Date Visits Requested Visits Authorized [id number] Pending Review Auto-Generat ed Referral 02/04/2023 02/05/2024 1 1 [facility] Summary Purpose Family History No Family History Records FoundNo Family History Records FoundNo Family History Records FoundNo Family History Records FoundNo Family History Records Found Advance Directives No Advanced Directives Records FoundNo Advanced Directives Records FoundNo Advanced Directives Records FoundNo Advanced Directives Records FoundNo Advanced Directives Records Found Reason for Referral Specialty Diagnoses / Procedures Referred By Contac t Referred To Contact MR IMAGING Diagnoses Cyst of ovary, unspecified laterality Procedures MRI FEMALE PELVIS WO/W IVCON MRI PELVIS W/O & W/CONTRAST MATERIAL Sonja Riojas MD [address] [place] [id number] Mr Imaging Referral ID Status Reason Start Date Expiration Date Visits Requested Visits Authorized [id number] Pending Review Auto-Generat ed Referral 12/16/2022 01/15/2024 1 1 Specialty Diagnoses / Procedures Referred By Contac t Referred To Contact MR IMAGING Diagnoses Other intra-abdominal and pelvic swelling, mass and lump Procedures MRI FEMALE PELVIS WO/W IVCON MRI PELVIS W/O & W/CONTRAST MATERIAL Sonja Riojas MD [address] [phone] [facility] [place] [address] Referral ID Status Reason Start Date Expiration Date V isits Requested Visits Authorized [id number] Closed Auto-Generate d Referral 11/06/2022 12/06/2023 1 1 Specialty Diagnoses / Procedures Referred By Contac t Referred To Contact MR IMAGING Diagnoses Cyst of ovary, unspecified laterality Procedures MRI ABDOMEN WO/W IVCON MRI ABDOMEN W/O & W/CONTRAST MATERIAL Sonja Riojas MD [address] [employer] [place] [phone] [facility] [place] [address] Referral ID Status Reason Start Date Expiration Date V isits Requested Visits Authorized [id number] Closed Auto-Generate d Referral 11/06/2022 12/06/2023 1 1 Additional Source Comments INFORMATION SOURCE (unrecogn ized section and content) DATE CREATED AUTHOR 01/08/[address] [facility] DATE CREATED AUTHOR AUTHOR'S ORGANIZ ATION 07/11/2022 [facility] DATE CREATED AUTHOR AUTHOR'S ORGANIZ ATION 09/28/2022 [facility] DATE CREATED AUTHOR AUTHOR'S ORGANIZ ATION 02/03/2023 [facility] DATE CREATED AUTHOR AUTHOR'S ORGANIZ ATION 07/10/2023 [facility] Source Comments (unrecognize d section and content) In the event this informatio n is protected by the Federal Confidentiality of Alcohol and Drug Abuse Patient Records regulations: The Federal rules restrict any use of the information to criminally investigate or prosecute any alcohol or drug abuse patient.[facility] event this information is protected by the Federal Confidentiality of Alcohol and Drug Abuse Patient Records regulations: The Federal rules restrict any use of the information to criminally investigate or prosecute any alcohol or drug abuse patient.[facility] the event this information is protected by the Federal Confidentiality of Alcohol and Drug Abuse Patient Records regulations: The Federal rules restrict any use of the information to criminally investigate or prosecute any alcohol or drug abuse patient.[facility] the event this information is protected by the Federal Confidentiality of Alcohol and Drug Abuse Patient Records regulations: The Federal rules restrict any use of the information to criminally investigate or prosecute any alcohol or drug abuse patient.[facility] the event this information is protected by the Federal Confidentiality of Alcohol and Drug Abuse Patient Records regulations: The Federal rules restrict any use of the information to criminally investigate or prosecute any alcohol or drug abuse patient.[facility] the event this information is protected by the Federal Confidentiality of Alcohol and Drug Abuse Patient Records regulations: The Federal rules restrict any use of the information to criminally investigate or prosecute any alcohol or drug abuse patient.[facility] the event this information is protected by the Federal Confidentiality of Alcohol and Drug Abuse Patient Records regulations: The Federal rules restrict any use of the information to criminally investigate or prosecute any alcohol or drug abuse patient.[facility] the event this information is protected by the Federal Confidentiality of Alcohol and Drug Abuse Patient Records regulations: The Federal rules restrict any use of the information to criminally investigate or prosecute any alcohol or drug abuse patient.[facility] the event this information is protected by the Federal Confidentiality of Alcohol and Drug Abuse Patient Records regulations: The Federal rules restrict any use of the information to criminally investigate or prosecute any alcohol or drug abuse patient.[facility] the event this information is protected by the Federal Confidentiality of Alcohol and Drug Abuse Patient Records regulations: The Federal rules restrict any use of the information to criminally investigate or prosecute any alcohol or drug abuse patient.[facility] the event this information is protected by the Federal Confidentiality of Alcohol and Drug Abuse Patient Records regulations: The Federal rules restrict any use of the information to criminally investigate or prosecute any alcohol or drug abuse patient.[facility] the event this information is protected by the Federal Confidentiality of Alcohol and Drug Abuse Patient Records regulations: The Federal rules restrict any use of the information to criminally investigate or prosecute any alcohol or drug abuse patient.[facility] the event this information is protected by the Federal Confidentiality of Alcohol and Drug Abuse Patient Records regulations: The Federal rules restrict any use of the information to criminally investigate or prosecute any alcohol or drug abuse patient.[facility] the event this information is protected by the Federal Confidentiality of Alcohol and Drug Abuse Patient Records regulations: The Federal rules restrict any use of the information to criminally investigate or prosecute any alcohol or drug abuse patient.[facility] the event this information is protected by the Federal Confidentiality of Alcohol and Drug Abuse Patient Records regulations: The Federal rules restrict any use of the information to criminally investigate or prosecute any alcohol or drug abuse patient.[facility] the event this information is protected by the Federal Confidentiality of Alcohol and Drug Abuse Patient Records regulations: The Federal rules restrict any use of the information to criminally investigate or prosecute any alcohol or drug abuse patient.[facility] the event this information is protected by the Federal Confidentiality of Alcohol and Drug Abuse Patient Records regulations: The Federal rules restrict any use of the information to criminally investigate or prosecute any alcohol or drug abuse patient.[facility] Reason for Visit (unrecogniz ed section and content) Reason Comments New Patient Abdominal pain Reason Comments Diarrhea Reason Comments Results Reason Comments Diarrhea Reason Comments Orders Reason Comments Pre-Op Teaching Reason Comments Pre-Op Visit Reason Comments Surgical Followup Reason Comments Ovarian Cyst Post OP Reason Comments Follow Up Reason Comments Diarrhea Reason Comments Radiology MRI Specialty Diagnoses / Procedures Referred By Contac t Referred To Contact MR IMAGING Diagnoses Other intra-abdominal and pelvic swelling, mass and lump Procedures MRI FEMALE PELVIS WO/W IVCON MRI PELVIS W/O & W/CONTRAST MATERIAL Sonja Riojas MD [address] [place] [address] Mr Imaging [place] [address] Referral ID Status Reason Start Date Expiration Date V isits Requested Visits Authorized [id number] Closed Auto-Generate d Referral 11/06/2022 12/06/2023 1 1 Specialty Diagnoses / Procedures Referred By Contac t Referred To Contact MR IMAGING Diagnoses Cyst of ovary, unspecified laterality Procedures MRI ABDOMEN WO/W IVCON MRI ABDOMEN W/O & W/CONTRAST MATERIAL Sonja Riojas MD [address] [place] [address] Mr Imaging [place] [address] Referral ID Status Reason Start Date Expiration Date V isits Requested Visits Authorized [id number] Closed Auto-Generate d Referral 11/06/2022 12/06/2023 1 1 Care Teams (unrecognized sec tion and content) Blending Machine Feeder Relationship Specialty Start Date End Date Gilmar Tesfaye CNP [address] [place], [place] [id number] PCP - General Internal Medicine 09/20/22 Blending Machine Feeder Relationship Specialty Start Date End Date Gilmar Tesfaye CNP [address] [place] [address] PCP - General Internal Medicine 09/20/22 Blending Machine Feeder Relationship Specialty Start Date End Date Gilmar Tesfaye CNP [address] [place] [address] PCP - General Internal Medicine 09/20/22 Blending Machine Feeder Relationship Specialty Start Date End Date Gilmar Tesfaye CNP [address] [place] [address] PCP - General Internal Medicine 09/20/22 Blending Machine Feeder Relationship Specialty Start Date End Date Gilmar Tesfaye CNP [address] [place] [address] PCP - General Internal Medicine 09/20/22 Blending Machine Feeder Relationship Specialty Start Date End Date Gilmar Tesfaye CNP [address] [place] [address] PCP - General Internal Medicine 09/20/22 Blending Machine Feeder Relationship Specialty Start Date End Date Gilmar Tesfaye CNP [address] [place] [address] PCP - General Internal Medicine 09/20/22 Blending Machine Feeder Relationship Specialty Start Date End Date Gilmar Tesfaye CNP [address] [place] [address] PCP - General Internal Medicine 09/20/22 Blending Machine Feeder Relationship Specialty Start Date End Date Gilmar Tesfaye CNP [address] [place] [address] PCP - General Internal Medicine 09/20/22 Blending Machine Feeder Relationship Specialty Start Date End Date Gilmar Tesfaye CNP [address] [place] [address] PCP - General Internal Medicine 09/20/22 Blending Machine Feeder Relationship Specialty Start Date End Date Gilmar Tesfaye CNP [address] [place] [address] PCP - General Internal Medicine 09/20/22 Blending Machine Feeder Relationship Specialty Start Date End Date Gilmar Tesfaye CNP [address] [place] [id number] PCP - General Internal Medicine 09/20/22 Blending Machine Feeder Relationship Specialty Start Date End Date Gilmar Tesfaye CNP [address] [place] [id number] PCP - General Internal Medicine 09/20/22 FOR RECORDS PERTAINING TO PATIENTS WHO ARE OR HAVE BEEN ENROLLED IN A CHEMICAL DEPENDENCY/SUBSTANCEABUSE PROGRAM, SOME INFORMATION MAY BE OMITTED. This clinical summary was aggregated from multiple sources. Caution should be exercised in using it in the provision of clinical care. This summary normalizes information from multiple sources, and as a consequence, information in this document may materially change the coding, format and clinical context of patient data. In addition, data may be omitted in some cases. CLINICAL DECISIONS SHOULD BE BASED ON THE PRIMARY CLINICAL RECORDS. [facility] [employer] [facility]. provides no warranty or guarantee of the accuracy or completeness of information in this document.
== END 2024-01-09 10:36 | disposition home or self-care (01) ==
LOC: US 10:36
DX: R10.11 Right upper quadrant pain (principal)
CPT/HCPCS: 76705

== ENCOUNTER 2024-04-19 09:29 | Outpatient (OUT) | payer MEDICARE, MEDICAID, SELFPAY ==
--- NOTE | 2024-04-16 15:05 | VEINCLINIC_ITS ---
Vital Signs 04/19/24 09:35 Height 5 ft 7 in Weight 132.449 kg BMI 45.7 BP 140/70 BP Location Right Brachial BP Position Sitting BP Cuff Size Adult BP Source Automatic Cuff Respiration 18 Pulse 78 Pulse Source Monitor Pulse Oximetry (%) 99 Oxygen Delivery Method Room Air Comment The patient's blood pressure is elevated. Varicose Veins Patient is a 54 year old female in this day with c/o painful varicosities to right mid medial lower leg noted within the last 2 weeks. Patient is a past patient of ours last seen 05/2021. Patient has had EVLT of right GSV followed by microfoam chemical ablation leftt leg. Patient has worn bilateral leg knee high compression stockings since 2020. Patient has also recently endured a right knee injury involving fracture and meniscuss tear. Jian Gregorio MD personally performed the services described in this documentation, as scribed by Maynor Colin RN in my presence and it is both accurate and complete. IMaynor RN, am scribing for, and in the presence of, Dr. Jian Hook and in the presence of the patient. . thigh: bilateral, knee: bilateral, calf: bilateral, ankle: bilateral and perry: bilateral aching, burning, dull and tender 4 months Worsened in recent months: Yes standing analgesics, elevating extremities and compression stockings Reports fatigue, heaviness, limb pain, edema and leg edema History of lower extremity trauma: No Superficial thrombophlebitis: Yes Family history of varicose veins: yes Has patient had previous lower extremity venous surgery: Yes Patient has previously received the following treatment(s) for lower extremity varicose veins: Reports vein ablation, sclerotherapy and foam therapy Does patient have a history of : no Does patient intend to have future pregnancies: no Has patient had lower extremity venous scan with relux testing: Yes Support hose used: Yes Problems walking or doing physical activity: Yes How does it affect you: can not tolerate walking any distance due to pain Do you walk much: No Do you stand much: No Review of Systems ROS Narrative Jian Gregorio MD personally performed the services described in this documentation, as scribed by Maynor Colin RN in my presence and it is both accurate and complete. IMaynor RN, am scribing for, and in the presence of, Dr. Jian Hook and in the presence of the patient. Status of ROS 10 or more systems reviewed and unremark able except as noted in history and below Cardiovascular Reports: edema Integumentary/Breast Reports: skin pain, skin tenderness and changes in skin color Neurological Reports: weakness in extremities [facility] Medical History (Updated 04/19/24 @ 09:49 by Maynor Colin) Migraine ?G43.909 - Migraine, unspecified, not intractable, without status migrainosus (ICD-10) Gastroesophageal reflux ?K21.9 - Gastro-esophageal reflux disease without esophagitis (ICD-10) Pancreatitis ?K85.90 - Acute pancreatitis without necrosis or infection, unspecified (ICD- 10) Obesity ?E66.9 - Obesity, unspecified (ICD-10) Prediabetes ?R73.03 - Prediabetes (ICD-10) Hypertension ?I10 - Essential (primary) hypertension (ICD-10) Asthma ?J45.909 - Unspecified asthma, uncomplicated (ICD-10) Right knee meniscal tear ?S83.206A - Unspecified tear of unspecified meniscus, current injury, right knee, initial encounter (ICD-10) Pain due to varicose veins of both lower extremities ?I83.813 - Varicose veins of bilateral lower extremities with pain (ICD-10) Surgical History (Updated 04/19/24 @ 09:50 by Maynor Colin) S/P sclerotherapy of varicose veins ?Z98.890 - Other specified postprocedural states (ICD-10) ?Z86.79 - Personal history of other diseases of the circulatory system (ICD- 10) History of arthroplasty of left knee ?Z96.652 - Presence of left artificial knee joint (ICD-10) Status post laser ablation of incompetent vein ?Z98.890 - Other specified postprocedural states (ICD-10) Family History (Updated 04/19/24 @ 09:51 by Maynor Colin) Other Family history of CHF (congestive heart failure) Family history of COPD (chronic obstructive pulmonary disease) Family history of cancer Family history of hypertension Family history of myocardial infarction Family history of stroke Pain due to varicose veins of both lower extremities Social History (Updated 04/19/24 @ 09:51 by Maynor Colin) Within the past year, how often did you have a drink containing alcohol: never Score interpretation: A score less than 3 is consistent with normal alcohol consumption. Smoking status: Never smoker Non-prescribed substance use: denies use Meds Home Medications and Allergies Home Medications ?Medication ?Instructions ?Recorded ?Confirmed ?Type albuterol sulfate 90 mcg/actuation 1 inh inhalation Q4H 04/19/24 04/19/24 History breath activated powder inhaler,sensor atorvastatin 20 mg tablet 20 mg PO QPM 04/19/24 04/19/24 History baclofen 10 mg tablet 10 mg PO DAILY 04/19/24 04/19/24 History clotrimazole 1 % topical ointment 1 applic topical BID 04/19/24 04/19/24 History (Alevazol) diclofenac sodium 1 % topical gel 2 g topical QID 04/19/24 04/19/24 History famotidine 20 mg tablet (Acid 20 mg PO DAILY 04/19/24 04/19/24 History Controller) gabapentin 600 mg tablet 600 mg PO DAILY 04/19/24 04/19/24 History guaifenesin 600 mg tablet, 600 mg PO BID PRN congestion 04/19/24 04/19/24 History extended release 12 hr ibuprofen 600 mg tablet (IBU) 600 mg PO TID-QID PRN pain 04/19/24 04/19/24 History losartan 50 mg tablet (Cozaar) 25 mg PO DAILY 04/19/24 04/19/24 History montelukast 10 mg tablet 10 mg PO DAILY 04/19/24 04/19/24 History rizatriptan 10 mg tablet (Maxalt) See Rx Instructions PO .COMPLEX 04/19/24 04/19/24 History topiramate 25 mg tablet (Topamax) 25 mg PO BID 04/19/24 04/19/24 History tramadol 50 mg tablet 50 mg PO BID 04/19/24 04/19/24 History triamcinolone acetonide 0.5 % 1 applic topical BID 04/19/24 04/19/24 History topical cream Allergies Allergy/AdvReac Type Severity Reaction Status Date / Time No Known Drug Allergies Allergy Verified 04/19/24 09:51 Exam Narrative Exam Narrative: Jian Gregorio MD personally performed the services described in this documentation, as scribed by Maynor Colin RN in my presence and it is both accurate and complete. IMaynor RN, am scribing for, and in the presence of, Dr. Jian Hook and in the presence of the patient. Constitutional Documenting provider has reviewed patient's vital signs: yes Common normals: oriented x3 Nutritional appearance: overweight Cardio Peripheral pulses: posterior tibial pulses present and dorsalis pedis pulses present Extremity Common normals: normal capillary refill General: calf tenderness and edema Right lower extremity: lower leg Right lower leg: inspection and palpation Left lower extremity: lower leg Left lower leg: inspection and palpation Neuro Common normals: oriented x3 Results Additional Findings Additional findings: Bilateral leg reflux u/s reveals no new varicose vein disease noted in comparison with last visit. Additionally, Lipoma's favored to right leg. Jian Gregorio MD personally performed the services described in this documentation, as scribed by Maynor Colin RN in my presence and it is both accurate and complete. Maynor Gregorio RN, am scribing for, and in the presence of, Dr. Jian Hook and in the presence of the patient. Assessment and Plan Assessment and Plan Plan Patient to continue use of bilateral leg knee high compression stockings, rest, and elevation. Patient to f/u as necessary in future as necessary. Jian Gregorio MD personally performed the services described in this documentation, as scribed by Maynor Colin RN in my presence and it is both accurate and complete. Maynor Gregorio RN, am scribing for, and in the presence of, Dr. Jian Hook and in the presence of the patient.
--- NOTE | 2024-04-16 15:06 | W.VEIN ---
Discharge Plan Discharge Disposition: Home, Self-Care Follow Up Appointments: f/u in future as necessary Print Language: Estonian Discharge Date/Time: 04/19/24 10:50
--- NOTE | 2024-04-19 09:30 | VEIN_ITS ---
Patient Name: NING CHRIS MR#: [id number] : 1970 Exam Date: 04/19/2024 Ordering Doctor: DR JIAN MORIN M.D. RADIOLOGY REPORT PROCEDURE: [facility] - OFFICE VISIT INITIAL COMPARISON: None. PROGRESS NOTES: 54-year-old female who presents with a 2 week history of right lower leg pain and swelling which began with a suspected bug bite as the patient was putting her compression stockings on. The patient was previously seen by our practice in 2018 and 2020 for intravenous laser ablation micro foam chemical ablation. The patient has a right knee injury with fracture and meniscal tear. The patient does not complain of any focal varicose veins or swelling. The patient's symptoms are throughout the course of the day without change with position for leg elevation. The patient denies any signs and symptoms to suggest arterial ischemia. The patient describes a family history significant for congestive heart failure, COPD, cancer, hypertension, [place], stroke and varicose veins. The patient never drinks alcohol. The patient has never smoked. No illicit drug use. Past medical history significant for migraine headaches, gastroesophageal reflux disease, pancreatitis, obesity, pre diabetes, hypertension, asthma, right knee meniscal tear and varicose veins. No history of deep venous thrombus or pulmonary embolus. See separate history and physical for medication list. The patient has worn compression stockings for years. Medication list reported separately. After review of nurse notes, history and physical exam I discussed with the patient that she had mild venous disease . I recommended a follow-up in 12-24 months but did not recommend treatments for her at this time. Ultrasound physical exam demonstrates the palpable masses in the right leg to likely represent lipomas. The patient was counseled to return if these significantly enlarged over course of time to ensure that the not become liposarcoma. Ultrasound venous reflux study performed the same day was discussed at length with the patient. The report demonstrates 2 echogenic foci in the right leg consistent with lipomas. Moderate right great saphenous vein reflux with minimal dilatation. Mild bilateral incompetent varicose veins, left greater than right. PHYSICAL EXAM: The right leg demonstrates no significant varicose veins. A few scattered reticular spider veins. No subcutaneous edema active ulceration or hemosiderin staining. Two focal masses could be palpated corresponding to the patient's complaint and corresponding to the ultrasound abnormality demonstrating lipomas The left leg demonstrates no significant varicose veins. Few scattered reticular and spider veins. No subcutaneous edema, active ulceration or hemosiderin staining Both thighs, legs and feet were symmetrically warm to the touch. Good posterior tibial and dorsalis pedis pulses were present bilaterally. VEIN/VC Facility EST Comprehensive IMPRESSION: 1. Moderate right great saphenous vein venous insufficiency with minimal dilatation 2. Mild bilateral lower extremity varicose veins, left greater than right 3. No lower extremity subcutaneous edema 4. No flow significant arterial disease 5. Two focal lipomas on the right leg measuring 2.0 and 1.9 cm in size 5. CEAP: C2, Ep, As, Pr PLAN: 1. Continued use of compression stockings 2. Elevated legs and increased physical activity for symptomatic relief 3. Return for enlargement of the lipomas, otherwise follow-up in 12-24 months Nurse notes, history and physical were reviewed and confirmed, see attached forms. The nurse was present throughout the physical exam and consultation Dictated by: Jian Morin MD on 04/19/2024 at 10:48 Approved by: Jian Morin MD on 04/19/2024 at 10:56
--- NOTE | 2024-04-19 09:30 | VEIN_ITS ---
Patient Name: NING CHRIS MR#: [id number] : 1970 Exam Date: 04/19/2024 Ordering Doctor: DR JIAN MORIN M.D. RADIOLOGY REPORT PROCEDURE: VC EXT VENOUS REFLUX VALENTINO LMTD COMPARISON: None. INDICATIONS: I83.813 Bilateral painful varicose veins TECHNIQUE: Duplex imaging of the lower extremity to assess the deep and superficial venous system for the presence of deep or superficial venous incompetence and to document the location and severity of disease. The study includes evaluation of the great saphenous vein (GSV), anterior accessory saphenous vein (AASV) and small saphenous vein (SSV). Patient scanned in reverse Trendelenburg and standing. FINDINGS: RIGHT LOWER EXTREMITY: Saphenofemoral Junction Reflux: Yes 6.2mm 0.7 sec GSV: Diam (mm) Reflux/ Time (sec) Proximal Thigh 5.6 Yes 4.5 Mid Thigh 5.0 Yes 1.4 Distal Thigh 5.1 Yes 0.3 Prox Calf 3.4 Yes 0.4 Mid Calf 2.0 Yes 0.3 Saphenopopliteal Junction Reflux: 3.4mm Yes 0.5 SSV: Proximal Calf 2.0 Yes 0.4 Mid Calf 3.4 No AASV: Proximal Thigh 3.0 Yes 0.7 Mid Thigh 2.4 Yes 0.4 Distal Thigh Thrombi: No acute or chronic thrombus. Compressibility: Normal. Flow: Mild deep venous reflux. Preforator: Distal medial lower leg 2.1 mm without reflux. Tech Note: Hyperechoic area mid medial lower leg measures 2.0 x 1.5 x 0.8 cm. Hyperechoic area proximal medial lower leg measures 1.9 x 1.8 x 0.8 cm. Incompetent varicose vein proximal posterior/medial calf measures 2.5 mm with 0.3s reflux. LEFT LOWER EXTREMITY: Saphenofemoral Junction Reflux: Yes 5.9 mm 4.1 sec GSV: Diam (mm) Reflux/Time (sec) Proximal Thigh N/A Mid Thigh N/A Distal Thigh N/A Prox Calf N/A Mid Calf N/A Saphenopopliteal Junction Relux: 3.5 mm Yes 0.4 SSV: Proximal Calf 2.9 No Mid Calf 3.5 Yes 0.6 AASV: Proximal Thigh 5.5 No Mid Thigh 2.8 Yes 0.3 Distal Thigh Thrombi: No acute or chronic thrombus. Compressibility: Normal. Flow: Moderate deep venous reflux. [employer]: Distal medial lower leg 4.3 mm with 1.3s reflux. Distal medial thigh 2.9 mm without reflux. Tech Note: Previously treated GSV. Incompetent varicose vein distal medial lower leg measures 3.5 mm with 0.8s reflux. Varicose vein distal medial thigh measures 4.5 mm with 0.5s reflux. CONCLUSION: 1. Two echogenic foci on the right leg corresponding to the patient's palpable abnormality. Lipomas are favored 2. Moderate reflux in the right great saphenous vein with minimal dilation 3. Bilateral incompetent varicose veins, left greater than right Dictated by: Jian Morin MD on 04/19/2024 at 10:29 Approved by: Jian Morin MD on 04/19/2024 at 10:30
[2024-04-19 09:35] VITALS: BP 140/70; PULSE 78; O2SAT 99; BMI 45.7
== END 2024-04-19 10:50 | disposition home or self-care (01) ==
LOC: VC 09:29
PROVIDERS: PCP Radiology Diagnostic Radiology; Visit Provider Radiology Diagnostic Radiology
DX: I83.813 Varicose veins of bilateral lower extremities with pain (principal)
CPT/HCPCS: 93970; G0463

== ENCOUNTER 2024-08-03 12:56 | Emergency (ER) | payer MEDICARE, MEDICAID, SELFPAY ==
[2024-08-03 13:03] VITALS: BP 143/74; PULSE 84; TEMP 36.4; O2SAT 100; BMI 43.5
[2024-08-03 13:05] VITALS: O2SAT 98
--- NOTE | 2024-08-03 13:07 | XR_ITS ---
[facility] [place] [id number] Patient Name: NING CHRIS MRN: [id number] date: 1970 Sex: F Assigned Patient Location: ED.MAIN Current Patient Location: ER Accession/Order Number: [id number] Exam Date: 08/03/2024 13:20 Report Date: 08/03/2024 14:09 At the request of: JESSICA AGRAWAL Procedure: XR ribs LT min 3V w CXR1V Exam: Radiographs: XR ribs LT min 3V w CXR1V Reason for exam: c/o left rib pain with injury Comparison: Chest x-ray dated 05/13/2022 XR/XR ribs LT min 3V w CXR1V IMPRESSION: No radiographically evident left rib fractures. Chest and left rib radiographs are unremarkable. Electronically authenticated by: STANLEY BAKER Date: 08/03/2024 14:09
--- NOTE | 2024-08-03 16:13 | ED.GENADUL1 ---
HPI HPI - General Adult General Chief complaint: Chest Pain Stated complaint: RIB PAIN Time Seen by Provider: 08/03/24 15:46 Source: patient Mode of arrival: walk-in Limitations: no limitations History of Present Illness HPI narrative: 54-year-old female presents to the emergency department with complaint of left lower chest, rib pain. Acute onset while she was moving a heavy piece of furniture. States she felt a pop. Symptoms have been fairly constant and worsened with palpation or taking a deep breath. She denies any shortness of breath, cough, fevers, chills. Quality:?As above Severity:?Moderate Timing:?As above, constant Context: Normal setting and activity? Modifying factors:?Worse with palpation, deep breath Associated symptoms: None Related Data Home Medications ?Medication ?Instructions ?Recorded ?Confirmed albuterol sulfate 90 mcg/actuation 1 inh inhalation Q4H 04/19/24 04/19/24 breath activated powder inhaler,sensor atorvastatin 20 mg tablet 20 mg PO QPM 04/19/24 04/19/24 baclofen 10 mg tablet 10 mg PO DAILY 04/19/24 04/19/24 clotrimazole 1 % topical ointment 1 applic topical BID 04/19/24 04/19/24 (Alevazol) diclofenac sodium 1 % topical gel 2 g topical QID 04/19/24 04/19/24 famotidine 20 mg tablet (Acid 20 mg PO DAILY 04/19/24 04/19/24 Controller) gabapentin 600 mg tablet 600 mg PO DAILY 04/19/24 04/19/24 guaifenesin 600 mg tablet, 600 mg PO BID PRN congestion 04/19/24 04/19/24 extended release 12 hr ibuprofen 600 mg tablet (IBU) 600 mg PO TID-QID PRN pain 04/19/24 04/19/24 losartan 50 mg tablet (Cozaar) 25 mg PO DAILY 04/19/24 04/19/24 montelukast 10 mg tablet 10 mg PO DAILY 04/19/24 04/19/24 rizatriptan 10 mg tablet (Maxalt) See Rx Instructions PO .COMPLEX 04/19/24 04/19/24 topiramate 25 mg tablet (Topamax) 25 mg PO BID 04/19/24 04/19/24 tramadol 50 mg tablet 50 mg PO BID 04/19/24 04/19/24 triamcinolone acetonide 0.5 % 1 applic topical BID 04/19/24 04/19/24 topical cream Previous Rx's ?Medication ?Instructions ?Recorded lidocaine 5 % topical patch 1 patch topical DAILY #15 ea 08/03/24 (Lidoderm) Allergies Allergy/AdvReac Type Severity Reaction Status Date / Time No Known Drug Allergies Allergy Verified 08/03/24 13:03 Opioid HPI Opioid Management Most Recent Opioid Data: Last Pain Scale 5 08/03/24 16:00 08/03/24 Review of Systems ROS Narrative CONST: Denies activity change, weakness, fevers Chest: + Chest wall pain MS: Denies arthralgias Pulmonary: Denies any shortness of breath, cough SKIN: Denies color change, wound NEURO: Denies numbness, paresthesias, weakness PFSH PFSH Medical History Migraine ?G43.909 - Migraine, unspecified, not intractable, without status migrainosus (ICD-10) Gastroesophageal reflux ?K21.9 - Gastro-esophageal reflux disease without esophagitis (ICD-10) Pancreatitis ?K85.90 - Acute pancreatitis without necrosis or infection, unspecified (ICD-10) Obesity ?E66.9 - Obesity, unspecified (ICD-10) Prediabetes ?R73.03 - Prediabetes (ICD-10) Hypertension ?I10 - Essential (primary) hypertension (ICD-10) Asthma ?J45.909 - Unspecified asthma, uncomplicated (ICD-10) Right knee meniscal tear ?S83.206A - Unspecified tear of unspecified meniscus, current injury, right knee, initial encounter (ICD-10) Pain due to varicose veins of both lower extremities ?I83.813 - Varicose veins of bilateral lower extremities with pain (ICD-10) Surgical History S/P sclerotherapy of varicose veins ?Z98.890 - Other specified postprocedural states (ICD-10) ?Z86.79 - Personal history of other diseases of the circulatory system (ICD-10) History of arthroplasty of left knee ?Z96.652 - Presence of left artificial knee joint (ICD-10) Status post laser ablation of incompetent vein ?Z98.890 - Other specified postprocedural states (ICD-10) Family History Other Family history of CHF (congestive heart failure) Family history of COPD (chronic obstructive pulmonary disease) Family history of cancer Family history of hypertension Family history of myocardial infarction Family history of stroke Pain due to varicose veins of both lower extremities Social History Within the past year, how often did you have a drink containing alcohol: never Score interpretation: A score less than 3 is consistent with normal alcohol consumption. Smoking status: Never smoker Non-prescribed substance use: denies use Little interest or pleasure in doing things: not at all Feeling down, depressed, or hopeless: not at all Exam Narrative Exam Narrative: Vital signs reviewed Nurses notes noted CONST: Nontoxic, well appearing, well nourished, in no distress.? No diaphoresis.?? HENT: normocephalic, atraumatic, moist mucous membrane, no abnormalities of the nose noted, hearing normal CV: normal rate, regular rhythm, no murmur RESP: normal effort, speaking in complete sentences. Lung sounds clear and equal bilat.? No wheezes, rales, rhonchi CHEST: + Point tenderness to the anterior, lateral aspect of her 12th rib. No swelling, ecchymosis, discoloration, crepitus, deformity, instability, warmth. GI: soft, no distension, nontender : no CVA tenderness MS: no edema, tenderness SKIN: no pallor NEURO: A&Ox 3, no focal findings PSYCH: normal mood, affect Constitutional Vital Signs, click to edit/add: Last Vital Signs Temp 97.5 F L 08/03/24 13:03 Pulse 84 08/03/24 13:03 Resp 16 08/03/24 13:03 BP 143/74 H 08/03/24 13:03 Pulse Ox 98 08/03/24 13:05 O2 Del Method Room Air 08/03/24 13:05 Course Vital Signs Vital signs: Vital Signs Temperature 97.5 F L 08/03/24 13:03 Pulse Rate 84 08/03/24 13:03 Respiratory Rate 16 08/03/24 13:03 Blood Pressure 143/74 H 08/03/24 13:03 Pulse Oximetry 100 08/03/24 13:03 Oxygen Delivery Method Room Air 08/03/24 13:03 Temperature 97.5 F L 08/03/24 13:03 Pulse Rate 84 08/03/24 13:03 Respiratory Rate 16 08/03/24 13:03 Blood Pressure 143/74 H 08/03/24 13:03 Pulse Oximetry 98 08/03/24 13:05 Oxygen Delivery Method Room Air 08/03/24 13:05 Medical Decision Making [facility] Narrative Medical decision making narrative: This is a pleasant 54-year-old female who presents to the emergency department for evaluation of rib pain On arrival, afebrile, vital signs are stable Exam, nontoxic, well-appearing patient in no distress. Heart regular rate and rhythm. Lung sounds clear and equal bilaterally. She has point tenderness to the 12th rib, anterior, lateral aspect. No swelling, ecchymosis, discoloration, crepitus, deformity, instability, warmth. Left ribs with chest x-ray imaging, per radiologist reveals no acute findings Favor chest wall strain, possible rib dislocation that resolved Fracture, pneumothorax less likely based on imaging History and Record Review Additional records reviewed: Visit 04/16/2024 due to of pain varicose veins but Management Independent interpretation: Left ribs with chest x-ray: No obvious fracture, infiltrate, edema, pneumothorax Disposition ? The patient was discharged. Prescriptions sent to pharmacy: Lidoderm patches Plan: Patient will be discharged to home.? Condition at time of disposition: stable.? Advised to follow up with primary provider. Advised to return for any worsening and/or development of new, concerning signs or symptoms PLEASE NOTE: Portions of the medical record may have been produced using electronic superintendent car construction and may contain errors with respect to translation of words which may not have been identified prior to finalization of the chart. Medical Records Medical records reviewed: Yes I reviewed the patient's medical records Imaging Data Left ribs with chest x-ray: Radiologist's impression: ITS Impressions Ribs X-Ray 08/03/24 13:07 IMPRESSION: No radiographically evident left rib fractures. Chest and left rib radiographs are unremarkable. Electronically authenticated by: STANLEY BAKER Date: 08/03/2024 14:09 Discharge Plan Discharge Chief Complaint: Chest Pain Clinical Impression: Rib pain on left side Chest wall muscle strain Qualifiers: Encounter type: initial encounter Qualified Code(s): S29.011A - Strain of muscle and tendon of front wall of thorax, initial encounter Patient Disposition: Home, Self-Care Time of Disposition Decision: 15:57 Condition: Good Prescriptions / Home Meds: New lidocaine [Lidoderm] 5 % adhesive patch,medicated 1 patch topical DAILY Qty: 15 0RF Rx Instructions: leave on most painful area for up to 12 hrs No Action losartan [Cozaar] 50 mg tablet 25 mg PO DAILY albuterol sulfate 90 mcg/actuation aero powdr breath act w/sensor 1 inh inhalation Q4H atorvastatin 20 mg tablet 20 mg PO QPM baclofen 10 mg tablet 10 mg PO DAILY Alevazol 1 % ointment 1 applic topical BID diclofenac sodium 1 % gel 2 g topical QID Rx Instructions: apply to single elbow, wrist or hand; for hand includes palm/fingers/back of hand famotidine [Acid Controller] 20 mg tablet 20 mg PO DAILY gabapentin 600 mg tablet 600 mg PO DAILY guaifenesin 600 mg tablet extended release 12hr 600 mg PO BID PRN (Reason: congestion) ibuprofen [IBU] 600 mg tablet 600 mg PO TID-QID PRN (Reason: pain) montelukast 10 mg tablet 10 mg PO DAILY rizatriptan [Maxalt] 10 mg tablet See Rx Instructions .ROUTE .COMPLEX Rx Instructions: take 1 tab at onset of headache; if no relief may repeat 1 tab after at least 2 hrs; max = 3 tabs/24 hr topiramate [Topamax] 25 mg tablet 25 mg PO BID tramadol 50 mg tablet 50 mg PO BID triamcinolone acetonide 0.5 % cream 1 applic topical BID Print Language: Kazakh Instructions: Chest Wall Pain (ED) Referrals: Physician,Non-Staff, MD [Primary Care Provider] - 1 week Discharge Date/Time: 08/03/24 16:08
== END 2024-08-03 16:08 | disposition home or self-care (01) ==
PROVIDERS: Emergency Provider Emergency Medicine
DX: S29.011A Strain of muscle and tendon of front wall of thorax, initial encounter (principal); X50.0XXA Overexertion from strenuous movement or load, initial encounter; R07.81 Pleurodynia; Z96.652 Presence of left artificial knee joint
CPT/HCPCS: 71101; 99283

== ENCOUNTER 2024-09-17 10:00 | Outpatient (OUT) | payer MEDICARE, MEDICAID, SELFPAY | END 2024-09-17 10:01 | disposition home or self-care (01) | LOC: RAD 10:00 | DX: Z78.0 Asymptomatic menopausal state (principal); M85.80 Other specified disorders of bone density and structure, unspecified site | CPT/HCPCS: 77080 ==